=== PATIENT | male | born 1955 | race Caucasian/White ===

== ENCOUNTER 2016-07-24 10:19 | Day surgery (SDC) | payer MEDICARE, OTHER ==
[2016-07-24] VITALS (13 sets, daily range): BP systolic 121–149; BP diastolic 57–96; PULSE 68–87; RESP 12–18; TEMP 96.8–98.6; O2SAT 93–99; Ht 188 cm; Wt 145.9 kg
[~2016-07-24] VITALS: Ht 188 cm; Wt 145.9 kg
[~2016-07-24 10:19] MED LIST: ASPI-557 PO; CLOB15CR4 TOP; LEVOFLOXACIN 500 mg IVPB 500 MG in D5W 100 ML IV ONE; LIDOCAINE 1% (10mg/ml) 2ml SDV INJ ONE; LISI-625 PO; LR 1,000 ML IV SCH; METO50TA5 PO; NITR0.4T39 SL; RIVA15TA PO; SENN-125 PO; SIMV20TA6 PO
--- OUTSIDE RECORDS SUMMARY | 2016-07-24 10:23 | XMS REPORT | Summary of Care ---
Author Author Darrius Elkins M.D. Organization Unknown Address [address] [place], [place] [address] Phone Unavailable Care Team Providers Care Supervisor Cold Rolling Name Role Phone Kirsty Elkins M.D. Unavailable Unavailable Darrius Elkins PP Unavailable Unavailable Unavailable Functional Status Functional Status Health Issues* Name Dates Details Functional status health issues are not documented Status: Cognitive Status Health Issues* Name Dates Details Cognitive status health issues are not documented Status: Problems Name Dates Details Cath RV False Aneurysm Status: Active Nausea (787.02, R11.0) Status: Active Tobacco use disorder (305.1, Z72.0) Status: Active Urinary tract infection (599.0, N39.0) Status: Active Pleural effusion (511.9, J90) Status: Active Psoriasis (696.1, L40.9) Status: Active Atopic dermatitis (691.8, L20.9) Status: Active Contact dermatitis (692.9, L25.9) Status: Active Myopia (367.1, H52.10) Status: Active Presbyopia (367.4, H52.4) Status: Active Intertrigo (695.89, L30.4) Status: Active Wounds, multiple open, lower extremity (894.0, S81.809A) Status: Active Elevated prostate specific antigen (PSA) (790.93, R97.2) Status: Active Rash (782.1, R21) Status: Active Blood in semen (608.82, R36.1) Status: Active History of tobacco use (V15.82, Z87.891) Status: Active Vertigo (780.4, R42) Status: Active Sebaceous hyperplasia (706.8, L73.8) Status: Active Hematuria (599.70, R31.9) Status: Active Glaucoma suspect (365.00, H40.009) Status: Active 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, 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 Low back pain (724.2, M54.5) Status: Active Lumbar nerve root compression (724.4, M54.16) Status: Active Acute bronchitis (466.0, J20.9) Status: Active Encounter for general health examination (V70.0, Z00.00) Status: Active Obesity (278.00, E66.9) Status: Active Constipation (564.00, K59.00) Status: Active Encounter for annual physical exam (V70.0, Z00.00) Status: Active High risk medication use (V58.69, Z79.899) Status: Active Hypertension (401.9, I10) Status: Active Cellulitis of foot (682.7, L03.119) Status: Active Hyperlipidemia (272.4, E78.5) Status: Active Type 2 diabetes mellitus, uncontrolled (250.02, E11.65) Status: Active Past myocardial infarction (412, I25.2) Status: Active Medications Name Dates Details Aspirin 81 MG Oral Tablet Take 1 tablet daily Darrius Elkins M.D.* Started 13-Jul-2011 ActiveNitrostat 0.4 MG Sublingual Tablet Sublingual DISSOLVE 1 TAB UNDER TONGUE NEEDED FOR CHEST PAIN EVERY 5 MINUTES F OR UP TO 3 DOSES. IF NO RELIEF CALL * Quantity: 30 Refills: 1 Darrius Elkins M.D.* Started 13-Jul-2011 ActiveSimvastatin 20 MG Oral Tablet TAKE 1 TABLET DAILY AT BEDTIME * Quantity: 90 Refills: 3 Darrius Elkins M.D.* Started 13-Jul-2011 ActiveMetoprolol Tartrate 50 MG Oral Tablet Take 1 tablet twice a day * Quantity: 180 Refills: 2 Darrius Elkins M.D.* Started 13-Jul-2011 ActiveMiraLax Oral Powder MIX 17 GM IN 8 OUNCES OF LIQUID AND DRINK 1 TO 2 TIMES DAILY FOR CONSTIPATION. * Quantity: 2 Refills: 6 Darrius Elkins M.D.* Started 13-Jul-2011 ActiveWarfarin Sodium 3 MG Oral Tablet TAKE ONE TABLET BY MOUTH EVERY DAY DIRECTED * Quantity: 90 Refills: 3 Darrius Elkins M.D.* Started ActiveHalobetasol Propionate 0.05 % External Cream APPLY TO AFFECTED AREAS BEHIND EARS AND ON HANDS TWICE A DAY NEEDED * Quantity: 50 Refills: 2 Darrius Elkins M.D.* Started 14-Jul-2012 ActiveDocQLace 100 MG Oral Capsule ONE CAPSULE BY MOUTH TWO TIMES DAILY * Quantity: 60 Refills: 11 Darrius Elkins M.D.* Started 28-Jul-2012 ActiveLisinopril 5 MG Oral Tablet Take 1 tablet daily * Quantity: 90 Refills: 1 Darrius Elkins M.D.* Started 11-Dec-2012 ActivePredniSONE 10 MG Oral Tablet 30mg qd x 3 days. 20mg qd x 3 days. 10mg qd x 3 days * Quantity: 18 Refills: 0 Darrius Elkins M.D.* Started 10-Apr-2013 ActiveWarfarin Sodium 5 MG Oral Tablet TAKE 1 TABLET DAILY DIRECTED. * Quantity: 90 Refills: 3 Darrius Elkins M.D.* Started 31-Jul-2013 ActiveMeloxicam 7.5 MG Oral Tablet 1QD - TAKE ONE TABLET BY MOUTH EVERY DAY * Quantity: 20 Refills: 0 Darrius Elkins M.D.* Started 12-Oct-2013 ActiveLinzess 145 MCG Oral Capsule TAKE 1 CAPSULE Every morning * Refills: 0 Darrius Elkins M.D.* Started 24-Dec-2013 Active Allergies and Adverse Reactions Name Dates Details No Known Drug Allergies Status: Active Past Medical History Name Dates Details History of acute bronchitis (V12.69, Z87.09) Status: Resolved Procedures Procedure Dates Details HEMOGLOBIN A1C 3507 Ordered:07-May-2014 Immunization Name Dates Details Influenza Administered on:01-Jan-2013 Fluzone Quadrivalent 0.5 ML Intramuscular Suspension Lot #: [id number] Administered on:17-Dec-2013 Family History Mother* Name Dates Details Family history of Osteoporosis (V17.81) Status: Active Father* Name Dates Details Family history of Heart Disease (V17.49) Status: Active Sister* Name Dates Details Family history of Thyroid Disorder (V18.19) Status: Active Brother* Name Dates Details Family history of Thyroid Disorder (V18.19) Status: Active Social History Name Dates Details Tobacco use disorder (305.1, Z72.0) History of tobacco use (V15.82, Z87.891) Smoking Status* Unknown if ever smoked Vital Signs Date Test Result Details No Known Vitals to report Results Date Description Value Details 07-May-2014 10:33 PROTIME PANEL 7000 Comments: Fastin hours PROTIME 30.5 secs (Above high threshold) Range: 12.0-14.9 INR 3.00 (Better) 10:35 LIPID PROFILE 1184 Comments: Fastin hours CHOLESTEROL 154 mg/dL (Better) Range: <200 TRIGLYCERIDES 220 mg/dL (Above high threshold) Range: 30-200 HDL Cholesterol 29 mg/dL (Below low threshold) Range: >39 NON HDL CHOLESTEROL 125 (Better) CARDIAC RSK FACTOR 5.3 units (Above high threshold) Range: 4.4-5.0 LDL - CALCULATED 81 mg/dL (Better) Range: 0-130 10:47 HEMOGLOBIN A1C 3507 Comments: Fastin hours Hemoglobin A1C 6.5 % (Better) ESTIMATED AVG. GLUCOSE 140 (Better) 14-May-2014 14:14 Quant Microalbumin 1106 MICROALBUMIN, URINE 4.3 mg/L (Better) Range: <20.1 05-Jun-2014 10:36 PROTIME PANEL 7000 PROTIME 14.9 secs (Better) Range: 12.0-14.9 INR 1.18 (Better) Plan of Care Planned Observations* Name Dates Details Planned Goals not documented Goal Planned Encounters* Appointment; Provider: Odin Florez On 19-Mar-2012 18:45 Instructions * Instructions not documented Encounters Appointment; Darrius Elkins Encounter Diagnosis: Problem not documented On 15-Apr-2014 10:15 Appointment; Darrius Elkins Encounter Diagnosis: Problem not documented On 24-Dec-2013 14:00 Appointment; Harvey Joyner Encounter Diagnosis: Problem not documented On 17-Dec-2013 15:50 Appointment; Darrius Elkins Encounter Diagnosis: Problem not documented On 23-Nov-2013 10:30 Appointment; Darrius Elkins Encounter Diagnosis: Problem not documented On 11:00 Appointment; Pipo Aponte Encounter Diagnosis: Problem not documented On 05-Jun-2013 09:45 Appointment; Clarke Quintero Encounter Diagnosis: Problem not documented On 08-May-2013 10:00 Appointment; Clarke Quintero Encounter Diagnosis: Problem not documented On 05-May-2013 12:15 Appointment; Darrius Elkins Encounter Diagnosis: Problem not documented On 28-Apr-2013 13:00 Appointment; Darrius Elkins Encounter Diagnosis: Problem not documented On 10-Apr-2013 10:30 Appointment; Darrius Elkins Encounter Diagnosis: Problem not documented On 11-Dec-2012 10:45 Appointment; Billy Altamirano Encounter Diagnosis: Problem not documented On 14-Jul-2012 14:00 Appointment; Clarke Watts Encounter Diagnosis: Problem not documented On 10-Jun-2012 16:00 Appointment; Clarke Quintero Encounter Diagnosis: Problem not documented On 10-Jun-2012 14:00
--- OUTSIDE RECORDS SUMMARY | 2016-07-24 10:23 | XMS REPORT | Summary of Care ---
Author Author Lady Cortes Organization Unknown Address [address] [place], [place] [address] Phone Unavailable Care Team Providers Care Solutions Manager Name Role Phone BlayneKylee murrieta DPM Unavailable Unavailable Lady Cortes Unavailable Unavailable Kirsty Elkins M.D. Unavailable Unavailable Darrius Elkins [...] Active Atopic dermatitis (691.8, L20.9) Status: Active Presbyopia (367.4, H52.4) Status: Active Intertrigo (695.89, L30.4) Status: Active Wounds, multiple open, lower extremity (894.0, S81.809A) Status: Active Elevated prostate specific antigen (PSA) (790.93, R97.2) Status: Active Blood in semen (608.82, R36.1) Status: Active History of tobacco use (V15.82, Z87.891) Status: Active Vertigo (780.4, R42) Status: Active Sebaceous hyperplasia (706.8, L73.8) Status: Active Hematuria (599.70, R31.9) Status: Active Low back pain (724.2, M54.5) Status: Active Lumbar nerve root compression (724.4, M54.16) Status: Active Encounter for general health examination (V70.0, Z00.00) Status: Active Constipation (564.00, K59.00) Status: Active Encounter for annual physical exam (V70.0, Z00.00) Status: Active Cellulitis of foot (682.7, L03.119) Status: Active Obesity (278.00, E66.9) Status: Active Contact dermatitis (692.9, L25.9) Status: Active Cellulitis of foot, right (682.7, L03.115) Status: Active Acquired hallux rigidus, right (735.2, M20.21) Status: Active Diabetic neuropathy (250.60, E11.40) Status: Active Peripheral vascular disease (443.9, I73.9) Status: Active Ulcer of foot (707.15, L97.509) Status: Active Chronic ulcer of right foot (707.15, 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: Active Bacterial skin infection (686.9, L08.9) Status: Active Acquired hallux rigidus, right (735.2, M20.21) Status: Active Limb pain (729.5, M79.609) Status: Active Difficulty in walking (719.7, R26.2) Status: Active 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, 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: Active Pre-op examination (V72.84, Z01.818) Status: Active Foot pain (729.5, M79.673) Status: Active Encounter for examination following surgery (V67.00, Z09) Status: Active Past myocardial infarction (412, I25.2) Status: Active 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, 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 Glaucoma suspect (365.00, H40.009) Status: Active Myopia of both eyes (367.1, H52.13) Status: Active Hypertension (401.9, I10) Status: Active Anticoagulant long-term use (V58.61, Z79.01) Status: Active High risk medication use (V58.69, Z79.899) Status: Active Former tobacco use (V15.82, Z87.891) Status: Active Rash (782.1, R21) Status: Active CAD (coronary artery disease) (414.00, I25.10) Status: Active Hyperlipidemia (272.4, E78.5) Status: Active Tinea corporis (110.5, B35.4) Status: Active Nummular eczema (692.9, L30.0) Status: Active Plaque psoriasis (696.1, L40.0) Status: Active Medications Name Dates Details Aspirin 81 MG TABS Take 1 tablet daily Darrius Elkins M.D.* [...] twice a day * Quantity: 180 Refills: 1 Darrius Elkins M.D.* Started 13-Jul-2011 ActiveMiraLax Oral Powder MIX 17 GM IN 8 OUNCES OF LIQUID AND DRINK 1 TO 2 TIMES DAILY FOR CONSTIPATION. * Quantity: 2 Refills: 6 Darrius Elkins M.D.* Started 13-Jul-2011 ActiveWarfarin Sodium 3 MG Oral Tablet TAKE 1 TABLET Daily as directed * Quantity: 90 Refills: 0 Darrius Elkins M.D.* Started ActiveHalobetasol Propionate 0.05 % External Cream APPLY TO AFFECTED AREAS BEHIND EARS AND ON HANDS TWICE A DAY NEEDED * Quantity: 50 Refills: 2 Darrius Elkins M.D.* Started 14-Jul-2012 ActiveLisinopril 5 MG Oral Tablet Take 1 tablet daily * Quantity: 90 Refills: 3 Darrius Elkins M.D.* Started 11-Dec-2012 ActiveWarfarin Sodium 5 MG Oral Tablet TAKE 1 TABLET Daily as directed * Quantity: 90 Refills: 3 Darrius Elkins M.D.* Started 31-Jul-2013 ActiveHalobetasol Propionate 0.05 % External Cream APPLY TO AFFECTED AREAS SPARINGLY TWICE DAILY * Quantity: 1 Refills: 2 Lady Sterling* Started 10-Jun-2014 Hjeaxh70 GM Tube Sulfamethoxazole-TMP DS 800-160 MG TABS Take 1 tablet twice daily * Quantity: 28 Refills: 0 Kylee Waite DPM* Started 04-Aug-2014 ActiveTerbinafine HCl - 250 MG Oral Tablet TAKE 1 TABLET DAILY. * Quantity: 7 Refills: 0 Asher Lady P.A.* Started Active Allergies and Adverse Reactions Name Dates Details No Known Drug Allergies Status: Active Past Medical History Name Dates Details History of acute bronchitis (V12.69, Z87.09) Status: Resolved History of Cellulitis of foot (682.7, L03.119) Status: Resolved Procedures Procedure Dates Details PROTIME PANEL 7000 Ordered: Immunization Name Dates Details Influenza Administered on:01-Jan-2013 Fluzone Quadrivalent 0.5 ML Intramuscular Suspension Lot #: [id number] Administered on:17-Dec-2013 Fluzone Quadrivalent 0.5 ML Intramuscular Suspension Lot #: [id number] Administered on:09-Dec-2014 Family History Mother* Name Dates Details Family [...] of tobacco use (V15.82, Z87.891) Smoking Status* Former smoker Vital Signs Date Test Result Details 08:55 BP Systolic 148 mm[Hg] Status: BP Diastolic 88 mm[Hg] Status: Weight 331 lb Status: Body Mass Index Calculated 42.5 kg/m2 Status: Body Surface Area Calculated 2.69 m2 Status: Results Date Description Value Details 10:22 PROTIME PANEL 7000 Comments: Fastin hours PROTIME 28.1 secs (Above high threshold) Range: 12.0-14.9 INR 2.62 (Better) 11:00 HEMOGLOBIN A1C 3507 Comments: Fastin hours Hemoglobin A1C 6.2 % (Better) ESTIMATED AVG. GLUCOSE 131 (Better) Plan of Care Planned Observations* Name Dates Details Planned Goals not documented Goal Planned Encounters* Appointment; Provider: Billy Altamirano On 08:45 * Appointment; Provider: Kylee Waite On 13:30 * Appointment; Provider: Odin Florez On 19-Mar-2012 18:45 Instructions * Instructions not documented Encounters Appointment; Lady Sterling Encounter Diagnosis: Problem not documented On 08:30 Appointment; Darrius Elkins Encounter Diagnosis: Problem not documented On 08:45 Appointment; Pipo Aponte Encounter Diagnosis: Problem not documented On 22-Feb-2015 10:15 Appointment; Harvey Joyner Encounter Diagnosis: Problem not documented On 09-Dec-2014 16:30 Appointment; Kylee Waite Encounter Diagnosis: Problem not documented On 10:15 Appointment; Kylee Waite Encounter Diagnosis: Problem not documented On 09:00 Appointment; Kylee Waite Encounter Diagnosis: Problem not documented On 10:00 Appointment; Darrius Elkins Encounter Diagnosis: Problem not documented On 09:00 Appointment; Kylee Waite Encounter Diagnosis: Problem not documented On 04-Aug-2014 09:15 Appointment; Kylee Waite Encounter Diagnosis: Problem not documented On 07-Jul-2014 13:30 Appointment; Darrius Elkins Encounter Diagnosis: Problem not documented On 10-Jun-2014 10:15 Appointment; Darrius Elkins Encounter Diagnosis: Problem not documented On 15-Apr-2014 10:15 Appointment; Darrius Elkins Encounter Diagnosis: Problem not documented On 24-Dec-2013 14:00 Appointment; Harvey Joyner Encounter Diagnosis: Problem not documented On 17-Dec-2013 15:50 Appointment; Darrius Elkins Encounter Diagnosis: Problem not documented On 23-Nov-2013 10:30 Appointment; Darrius Elkins Encounter Diagnosis: Problem not documented On 11:00
--- OUTSIDE RECORDS SUMMARY | 2016-07-24 10:23 | XMS REPORT ---
Author Peyman Chaudhry Organization [employer] Address Unknown Phone Unavailable Care Team Providers Care Submarine Element Coordinator Name Role Phone Peyman King CP Unavailable Allergies, Adverse Reactions, Alerts Substance Reaction Event Type N.K.D.A. Info Not Available Non Drug Allergy Problems Problem Type Condition ICD-9 Code Onset Dates Condition Status Problem RUQ pain 789.01 Active Problem Fatty liver 571.8 Active Problem Chronic constipation 564.00 Active Assessment Fatty liver 571.8 Active Assessment Chronic constipation 564.00 Active Assessment RUQ pain 789.01 Active Medications Medication Code System Code Instructions Start Date End Date Status Dosage Coumadin [facility] [address]-64 8mg Orally Once a day 1 tablet Aspirin [facility] 58746-[address]94 81 MG Orally Once a day 1 tablet Lisinopril [facility] [address]-31 5 MG Orally Once a day 1 tablet Metoprolol Tartrate [facility] [address]-26 50 MG Orally daily 2 tablet MiraLax [facility] [address]-55 not defined Procedures Procedure Coding System Code Date Office Visit, New Pt., Level 4 CPT-4 48177 July 20, 2014 Vital Signs Date/Time: July 20, 2014 Blood Pressure Systolic 132 mm Hg Weight 332 lbs Height 74 in BMI 42.62 Index Respiratory Rate 18 /min Cardiac Monitoring Heart Rate 80 /min Blood Pressure Diastolic 82 mm Hg Results No Known Results Summary Purpose [employer] Submission
--- OUTSIDE RECORDS SUMMARY | 2016-07-24 10:24 | XMS REPORT | Summary of Care ---
Author Author Kylee Waite DPM Organization Unknown Address [address] [place], [place] [id number] Phone Unavailable Care Team Providers Care Business Database Analyst Name Role Phone Kylee Waite DPM Unavailable Unavailable Kirsty Elkins M.D. Unavailable Unavailable [...] Active Atopic dermatitis (691.8, L20.9) Status: Active Myopia (367.1, H52.10) Status: Active [...] risk medication use (V58.69, Z79.899) Status: Active Hyperlipidemia (272.4, E78.5) Status: Active Hypertension (401.9, I10) Status: Active [...] Bacterial skin infection (686.9, L08.9) Status: Active Past myocardial infarction (412, I25.2) Status: Active Type 2 diabetes mellitus, uncontrolled (250.02, E11.65) Status: Active Acquired hallux rigidus, right (735.2, M20.21) Status: Active Limb pain (729.5, M79.609) Status: Active Difficulty in walking (719.7, R26.2) Status: Active 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, 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: Active Pre-op examination (V72.84, Z01.818) Status: Active Foot pain (729.5, M79.673) Status: Active Encounter for examination following surgery (V67.00, Z09) Status: Active Medications Name Dates Details Aspirin [...] Refills: 1 Darrius Elkins M.D.* Started 11-Dec-2012 ActiveWarfarin Sodium 5 MG Oral Tablet TAKE 1 TABLET DAILY DIRECTED. * Quantity: 90 Refills: 3 Darrius Elkins M.D.* Started 31-Jul-2013 ActiveHalobetasol Propionate 0.05 % External Cream APPLY TO AFFECTED AREAS SPARINGLY TWICE DAILY * Quantity: 30 Refills: 0 Darrius Elkins M.D.* Started 10-Jun-2014 ActiveSulfamethoxazole-TMP DS 800-160 MG Oral Tablet Take 1 tablet twice daily * Quantity: 28 Refills: 0 Kylee Waite DPM* Started 04-Aug-2014 Active Allergies and Adverse Reactions Name Dates Details No Known Drug Allergies Status: Active Past Medical History Name Dates Details History of acute bronchitis (V12.69, Z87.09) Status: Resolved History of Cellulitis of foot (682.7, L03.119) Status: Resolved Procedures Procedure Dates Details HEMOGLOBIN A1C 3507 Ordered:29-Jul-2014 Immunization Name Dates Details Influenza Administered on:01-Jan-2013 Fluzone Quadrivalent 0.5 ML Intramuscular Suspension Lot #: [id number] Administered on:17-Dec-2013 Family History Mother* Name Dates [...] smoked Vital Signs Date Test Result Details 09:17 BP Systolic 130 mm[Hg] Status: BP Diastolic 82 mm[Hg] Status: Heart Rate 71 /min Status: Weight 339 lb Status: Body Mass Index Calculated 43.53 kg/m2 Status: Body Surface Area Calculated 2.72 m2 Status: Results Date Description Value Details 09:42 XRay CHEST-PA & LAT Comments: Exam Date: 08/30/2014 09:27Dictation Date: 08/30/2014 09:42 X CHEST PA & LAT (Better) 09:55 ECG/ EKG Preop Electro CardioGram (Better) 10:04 Urinalysis, Reflex to Microscopic or Culture PRN 8005 pH 5.5 (Better) Range: 5.0-7.5 SP GRAVITY 1.010 (Better) Range: 1.010-1.030 APPEARANCE CLEAR (Better) Range: Clear COLOR YELLOW (Better) Range: Straw-Yellow PROTEIN NEGATIVE mg/dL (Better) Range: Negative-Trace GLUCOSE NEGATIVE mg/dL (Better) Range: Negative KETONE NEGATIVE mg/dL (Better) Range: Negative BILIRUB NEGATIVE (Better) Range: Negative BLOOD NEGATIVE (Better) Range: Negative UROBIL 0.2 EU/dL (Better) Range: 0.2-1.0 NITRITE NEGATIVE (Better) Range: Negative LEUK NEGATIVE (Better) Range: Negative 10:11 PROTIME PANEL 7000 PROTIME 23.1 secs (Above high threshold) Range: 12.0-14.9 INR 2.09 (Better) 10:15 CBC w/ Auto Diff 7150 Comments: DOS 09-06-14 Dr. Waite @ [facility]. WBC 6.3 K/uL (Better) Range: 4.5-11.0 RBC 5.20 mil/uL (Better) Range: 4.20-5.40 HGB 15.6 g/dL (Better) Range: 14.0-18.0 HCT 46.2 % (Better) Range: 42.0-53.0 MCV 88.9 fL (Better) Range: 80.0-99.0 MCH 30.1 pg (Better) Range: 27.3-32.5 MCHC 33.8 % (Better) Range: 32.0-36.0 RDW 13.8 % (Better) Range: 11.6-14.8 PLATELETS 169 K/uL (Better) Range: 150-400 MPV 8.7 fL (Better) Range: 6.0-11.0 %NEUTRO 51.0 % (Better) Range: 37.0-80.0 %LYMPHS 32.2 % (Better) Range: 13.0-50.0 %MONO 4.9 % (Better) Range: 0.0-12.0 %EOS 7.4 % (Above high threshold) Range: 0.0-7.0 %BASO 1.0 % (Better) Range: 0.0-2.5 %ALEJANDRA 3.5 % (Better) Range: 0.0-5.0 NEUTRO 3.2 K/uL (Better) Range: 2.0-6.9 LYMPHS 2.0 K/uL (Better) Range: 0.6-3.4 MONOS 0.3 K/uL (Better) Range: 0.0-0.9 EOS 0.5 K/uL (Better) Range: 0.0-0.7 BASO 0.1 K/uL (Better) Range: 0.0-0.2 12:13 Comprehensive Metabolic Panel 1212 SODIUM 135 mmol/L (Better) Range: 133-144 POTASSIUM 4.0 mmol/L (Better) Range: 3.5-5.1 CHLORIDE 98 mmol/L (Better) Range: 98-110 CARBON DIOXIDE 26.9 mmol/L (Better) Range: 23.0-33.0 ANION GAP 10 mmol/L (Better) Range: 6-16 BUN 14 mg/dL (Better) Range: 7-18 CREATININE, SERUM 0.98 mg/dL (Better) Range: 0.55-1.02 Comments: Please note new reference ranges effective 2014.----- BUN:CREATININE RATIO 14 (Better) EST GFR, >60 ml/min (Better) Range: >60 EST GFR, NON-AFR TOGOLESE >60 ml/min (Better) Range: >60 Comments: EST GFR is reported in ml/min per 1.73 m2 of body surface area. For -Italian, please multiple result by 1.2.----- GLUCOSE 142 mg/dL (Above high threshold) Range: 70-100 ALK PHOSPHATASE 76 U/L (Better) Range: 46-116 TOTAL BILIRUBIN 0.30 mg/dL (Better) Range: 0.20-1.00 AST 30 U/L (Better) Range: 8-35 ALT 41 U/L (Better) Range: 16-63 Comments: Please note new reference ranges. Effective 05/20/2014.----- ALBUMIN 3.4 g/dL (Better) Range: 3.4-5.0 TOTAL PROTEIN 7.5 g/dL (Better) Range: 6.4-8.2 A/G RATIO 0.8 units (Below low threshold) Range: 1.0-1.8 CALCIUM 8.4 mg/dL (Below low threshold) Range: 8.5-10.1 10:34 XRay FOOT-Right Comments: Exam Date: 09/14/2014 09: 58Dictation Date: 09/14/2014 10:34 X FOOT COMP (MIN 3V) RT (Better) Plan of Care Planned Observations* Name Dates Details Planned Goals not documented Goal Planned Encounters* Appointment; Provider: Kylee Waite On 10:15 * Appointment; Provider: Kylee Waite On 13:30 * Appointment; Provider: Odin Florez On 19-Mar-2012 18:45 Instructions * Instructions not documented Encounters Appointment; Kylee Waite Encounter Diagnosis: Problem not [...]
--- OUTSIDE RECORDS SUMMARY | 2016-07-24 10:24 | XMS REPORT | Referral Summary ---
Author Author [facility] Organization [facility] Address Unknown Phone Unavailable Care Team Providers Care Shank Turner Name Role Phone Kirsty Elkins Primary Care Physician [phone] Encounter Date(s): 02/03/16 - 02/03/16 [facility] [address] [place], [place] [address] Discharge Diagnosis: Nausea and vomiting Discharge Diagnosis: Acute gastritis Discharge Diagnosis: Abdominal pain in male Discharge Disposition: 01-Home or Self Care Attending Physician: Yemi Tate MD Admitting Physician: Yemi Tate MD Vital Signs Most recent to 1 oldest [Reference Range]: Temperature Temporal 36 degC Artery [36.3-37.8 *LOW* degC] (02/03/16 9:19 AM) Peripheral Pulse 114 bpm Rate [60-100 bpm] *HI* (02/03/16 9:42 AM) Heart Rate Monitored 93 bpm [60-100 bpm] (02/03/16 10:25 AM) Respiratory Rate 33 br/min [14-20 br/min] *HI* (02/03/16 10:25 AM) Blood Pressure 136/71 mmHg [90-140/60-90 mmHg] (02/03/16 10:25 AM) Mean Arterial 92 mmHg Pressure, Cuff (02/03/16 10:25 AM) SpO2 95 % (02/03/16 10:25 AM) Problem List Condition Effective Dates Status Health Status Informant H/O heart bypass Active patient surgery(Confirmed) History of high Active patient blood pressure(Confirmed) Allergies, Adverse Reactions, Alerts No Known Medication Allergies Medications Colace 100 mg oral capsule 100 mg 1 caps, Oral, BID, as needed for constipation, with plenty of water SUP/ david Wright MD., # 20 caps, 0 Refill(s) Start Date: 02/02/16 Status: Ordered Levsin SL 0.125 mg sublingual tablet 0.125 mg 1 tabs, SubLingual, q4hr, # 15 tabs, 0 Refill(s) Start Date: 02/03/16 Status: Ordered MiraLax oral powder for reconstitution 17 g, Oral, Daily, dissolve in water before taking SHAISTA/david Wright MD., # 255 g, 0 Refill(s) Start Date: 02/02/16 Stop Date: 02/06/16 Status: Ordered Zofran 4 mg oral tablet 4 mg 1 tabs, Oral, q4hr, Nausea or Vomiting | as needed for nausea/vomiting, SHAISTA /david Wright MD., # 10 tabs, 0 Refill(s) Start Date: 02/02/16 Stop Date: 02/06/16 Status: Ordered Zofran ODT 4 mg oral tablet, disintegrating 4 mg 1 tabs, Oral, q4hr, Nausea or Vomiting | as needed for nausea/vomiting, # 10 tabs, 0 Refill(s) Start Date: 02/03/16 Status: Ordered Results Hematology Most recent to 1 oldest [Reference Range]: WBC [4.8-10.8 6.3 10*3/uL 10*3/uL] (02/03/16 9:57 AM) RBC [4.60-6.20] 5.07 (02/03/16 9:57 AM) Hgb [14.0-18.0 15.4 gm/dL gm/dL] (02/03/16 9:57 AM) Hct [42.0-52.0 %] 46.2 % (02/03/16 9:57 AM) MCV [82.0-99.0 fL] 91.1 fL (02/03/16 9:57 AM) MCH [27.0-32.0 pg] 30.4 pg (02/03/16 9:57 AM) MCHC [32.0-36.0 33.3 gm/dL gm/dL] (02/03/16 9:57 AM) RDW [11.5-14.5 %] 13.9 % (02/03/16 9:57 AM) Platelet [150-400 135 10*3/uL 10*3/uL] *LOW* (02/03/16 9:57 AM) MPV [9.4-12.3 fL] 12.1 fL (02/03/16 9:57 AM) Immature 0.2 % Granulocytes (02/03/16 9:57 AM) [0.0-1.0 %] Neutrophils [51-75 80 % %] *HI* (02/03/16 9:57 AM) Lymphocytes [20-46 9 % %] *LOW* (02/03/16 9:57 AM) Monocytes [4-11 %] 11 % (02/03/16 9:57 AM) Eosinophils [0-4 %] 0 % (02/03/16 9:57 AM) Basophils [0-2 %] 0 % (02/03/16 9:57 AM) Neutro Absolute 4.98 10*3 [1.90-7.00 10*3] (02/03/16 9:57 AM) Lymph Absolute 0.56 10*3 [0.80-3.30 10*3] *LOW* (02/03/16 9:57 AM) [place] Absolute 0.70 10*3 [0.30-1.00 10*3] (02/03/16 9:57 AM) Eos Absolute 0.00 10*3 [0.00-0.50 10*3] (02/03/16 9:57 AM) Baso Absolute 0.01 10*3 [0.00-0.20 10*3] (02/03/16 9:57 AM) Chemistry Most recent to 1 oldest [Reference Range]: Sodium Lvl [136-144 133 mEq/L mEq/L] *LOW* (02/03/16 9:57 AM) Potassium Lvl 4.2 mEq/L [3.6-5.1 mEq/L] (02/03/16 9:57 AM) Chloride [99-109 95 mEq/L mEq/L] *LOW* (02/03/16 9:57 AM) CO2 [22-32 mEq/L] 28 mEq/L (02/03/16 9:57 AM) AGAP [3-20] 10 (02/03/16 9:57 AM) BUN [4-20 mg/dL] 11 mg/dL (02/03/16 9:57 AM) Glucose Lvl [70-100 131 mg/dL mg/dL] *HI* (02/03/16 9:57 AM) Creatinine Lvl 1.15 mg/dL [0.64-1.27 mg/dL] (02/03/16 9:57 AM) eGFR [>60] >60 1 (02/03/16 9:57 AM) Calcium Lvl 8.7 mg/dL [8.6-10.0 mg/dL] (02/03/16 9:57 AM) Albumin Lvl [3.5-4.8 3.4 gm/dL gm/dL] *LOW* (02/03/16 9:57 AM) Total Protein 7.3 gm/dL [6.1-7.9 gm/dL] (02/03/16 9:57 AM) Globulin [1.9-4.3 3.9 gm/dL gm/dL] (02/03/16 9:57 AM) ALT [17-63 U/L] 30 U/L (02/03/16 9:57 AM) AST [15-41 U/L] 29 U/L (02/03/16 9:57 AM) Alk Phos [26-104 64 U/L U/L] (02/03/16 9:57 AM) Bili Total [0.2-1.2 1.1 mg/dL 2 mg/dL] (02/03/16 9:57 AM) Troponin [<0.06 <0.05 ng/mL ng/mL] (02/03/16 9:57 AM) Lipase Lvl [8-48 25 U/L U/L] (02/03/16 9:57 AM) 1Result Comment: Multiply eGFR results by 1.21 for race. 2Result Comment: Naproxen, specifically the metabolite O-desmethylnaproxen, may cause spurious elevation in Total Bilirubin levels. Urinalysis Most recent to 1 oldest [Reference Range]: UA Color Yellow (02/03/16 9:56 AM) UA Appear Clear (02/03/16 9:56 AM) UA pH [5.0-8.0] 5.0 (02/03/16 9:56 AM) UA Leuk Est Negative [Negative] (02/03/16 9:56 AM) UA Nitrite Negative [Negative] (02/03/16 9:56 AM) UA Protein Negative [Negative] (02/03/16 9:56 AM) UA Glucose Negative [Negative] (02/03/16 9:56 AM) UA Ketones Pos 1+ [Negative] *ABN* (02/03/16 9:56 AM) UA Urobilinogen Negative [<1.0] (02/03/16 9:56 AM) UA Bili [Negative] Negative (02/03/16 9:56 AM) UA Blood [Negative] Negative (02/03/16 9:56 AM) UA Spec Grav 1.030 [1.003-1.030] (02/03/16 9:56 AM) Type Clean Catch (02/03/16 9:56 AM) Immunizations No data available for this section Procedures No data available for this section Social History Social History Type Response Smoking Status Current some day smoker Assessment and Plan No data available for this section"
--- OUTSIDE RECORDS SUMMARY | 2016-07-24 10:24 | XMS REPORT | Summary of Care ---
Author Author Kylee Waite DPM Organization Unknown Address [address] [place], [place] [id number] Phone Unavailable Care Team Providers Care Government Contracts Manager Name Role Phone Kylee Waite DPM Unavailable [...] Quadrivalent 0.5 ML Intramuscular Suspension Lot #: [id number] Administered on:17-Dec-2013 Family History Mother* Name Dates [...] Auto Diff 7150 Comments: DOS 09-06-14 Dr. aWite @ [facility]. WBC 6.3 K/uL (Better) Range: 4.5-11.0 RBC [...] ml/min (Better) Range: >60 EST GFR, NON-AFR KYRGYZ >60 ml/min (Better) Range: >60 Comments: EST GFR is reported in ml/min per 1.73 m2 of body surface area. For -Nigerian, please multiple result by 1.2.----- GLUCOSE 142 [...] Planned Encounters* Appointment; Provider: Kylee Waite On 09:00 * Appointment; Provider: Kylee Waite On 13:30 * Appointment; Provider: Odin Gautam On 19-Mar-2012 18:45 Instructions * Instructions not [...]
--- OUTSIDE RECORDS SUMMARY | 2016-07-24 10:24 | XMS REPORT | Summary of Care ---
Author Author Darrius Elkins M.D. Organization Unknown Address [address] [place], [place] [id number] Phone Unavailable Care Team Providers Care Covered Buckle Assembler Name Role Phone Kirsty Elkins M.D. Unavailable [...] R11.0) Status: Active Tobacco use disorder (305.1, Z02.0) Status: Active Urinary tract infection (599.0, N39.0) [...] nerve root compression (724.4, M54.16) Status: Active High risk medication use (V58.69, Z79.899) Status: Active Acute bronchitis (466.0, J20.9) Status: Active Past myocardial infarction (412, I25.2) Status: Active Hyperlipidemia (272.4, E78.5) Status: Active Encounter for general health examination (V70.0, Z00.00) Status: Active Obesity (278.00, E66.9) Status: Active Constipation (564.00, K59.00) Status: Active Hypertension (401.9, I10) Status: Active Encounter for annual physical exam (V70.0, Z00.00) Status: Active Medications Name Dates Details Aspirin [...] 13-Jul-2011 ActiveMetoprolol Tartrate 50 MG Oral Tablet TAKE ONE TABLET BY MOUTH TWO TIMES A DAY. * Quantity: 180 Refills: 1 Darrius Elkins [...] Started 28-Jul-2012 ActiveLisinopril 5 MG Oral Tablet I po qd * Quantity: 90 Refills: 1 Darrius Elkins [...] Z87.09) Status: Resolved Procedures Procedure Dates Details Procedures not documented Immunization Name Dates Details Influenza Administered on:01-Jan-2013 Fluzone Quadrivalent 0.5 ML Intramuscular Suspension Lot #: [id number] Administered on:17-Dec-2013 Family History Mother* Name Dates Details Family history of Osteoporosis (V17.81) Status: Active Father* Name Dates Details Family history of Heart Disease (V17.49) Status: Active Sister* Name Dates Details Family history of Thyroid Disorder (V18.19) Status: Active Brother* Name Dates Details Family history of Thyroid Disorder (V18.19) Status: Active Social History Name Dates Details Tobacco use disorder (305.1, Z02.0) History of tobacco use (V15.82, Z87.891) Smoking Status* Unknown if ever smoked Vital Signs Date Test Result Details No Known Vitals to report Results Date Description Value Details 19-Feb-2014 09:24 CBC w/ Auto Diff 7150 Comments: ORDER IN BOOK UNDER FEBRUARY WBC 7.2 K/uL (Better) Range: 4.5-11.0 RBC 5.02 mil/uL (Better) Range: 4.20-5.40 HGB 15.2 g/dL (Better) Range: 14.0-18.0 HCT 45.8 % (Better) Range: 42.0-53.0 MCV 91.3 fL (Better) Range: 80.0-99.0 MCH 30.2 pg (Better) Range: 27.3-32.5 MCHC 33.1 % (Better) Range: 32.0-36.0 RDW 14.0 % (Better) Range: 11.6-14.8 PLATELETS 137 K/uL (Below low threshold) Range: 150-400 MPV 8.5 fL (Better) Range: 6.0-11.0 %NEUTRO 51.4 % (Better) Range: 37.0-80.0 %LYMPHS 32.6 % (Better) Range: 13.0-50.0 %MONO 8.3 % (Better) Range: 0.0-12.0 %EOS 4.8 % (Better) Range: 0.0-7.0 %BASO 1.0 % (Better) Range: 0.0-2.5 %ALEJANDRA 1.9 % (Better) Range: 0.0-5.0 NEUTRO 3.7 K/uL (Better) Range: 2.0-6.9 LYMPHS 2.4 K/uL (Better) Range: 0.6-3.4 MONOS 0.6 K/uL (Better) Range: 0.0-0.9 EOS 0.4 K/uL (Better) Range: 0.0-0.7 BASO 0.1 K/uL (Better) Range: 0.0-0.2 09:50 HEPATOBILIARY ( HIDA) Comments: Exam Date: 07: 53Dictation Date: 09:50 XN HEPATOBILIARY (Better) 09:48 Comprehensive Metabolic Panel 1212 Comments: ORDER IN BOOK UNDER FEBRUARY SODIUM 138 mmol/L (Better) Range: 133-144 POTASSIUM 4.3 mmol/L (Better) Range: 3.5-5.1 CHLORIDE 102 mmol/L (Better) Range: 98-110 CARBON DIOXIDE 31.4 mmol/L (Better) Range: 23.0-33.0 ANION GAP 5 mmol/L (Below low threshold) Range: 6-16 BUN 17 mg/dL (Better) Range: 7-18 CREATININE, SERUM 0.87 mg/dL (Better) Range: 0.43-1.13 BUN:CREATININE RATIO 20 (Better) EST GFR, >60 ml/min (Better) Range: >60 EST GFR, NON-AFR [place] >60 ml/min (Better) Range: >60 Comments: EST GFR is reported in ml/min per 1.73 m2 of body surface area. For -Malagasy, please multiple result by 1.2.----- GLUCOSE 102 mg/dL (Above high threshold) Range: 70-100 ALK PHOSPHATASE 56 U/L (Better) Range: 46-116 Comments: Please Note: New Reference Range effective 2013.----- TOTAL BILIRUBIN 0.40 mg/dL (Better) Range: 0.20-1.00 AST 19 U/L (Better) Range: 8-35 ALT 36 U/L (Better) Range: 12-78 ALBUMIN 3.2 g/dL (Below low threshold) Range: 3.4-5.0 TOTAL PROTEIN 6.8 g/dL (Better) Range: 6.4-8.2 A/G RATIO 0.9 units (Below low threshold) Range: 1.0-1.8 CALCIUM 8.4 mg/dL (Below low threshold) Range: 8.5-10.1 09:48 Lipase 1275 Comments: ORDER IN BOOK UNDER FEBRUARY LIPASE 273 U/L (Better) Range: 73-393 15-Mar-2014 14:04 CBC w/ Auto Diff 7150 WBC 6.6 K/uL (Better) Range: 4.5-11.0 RBC 5.22 mil/uL (Better) Range: 4.20-5.40 HGB 15.3 g/dL (Better) Range: 14.0-18.0 HCT 46.8 % (Better) Range: 42.0-53.0 MCV 89.6 fL (Better) Range: 80.0-99.0 MCH 29.4 pg (Better) Range: 27.3-32.5 MCHC 32.8 % (Better) Range: 32.0-36.0 RDW 13.9 % (Better) Range: 11.6-14.8 PLATELETS 176 K/uL (Better) Range: 150-400 MPV 8.9 fL (Better) Range: 6.0-11.0 %NEUTRO 47.1 % (Better) Range: 37.0-80.0 %LYMPHS 34.7 % (Better) Range: 13.0-50.0 %MONO 7.0 % (Better) Range: 0.0-12.0 %EOS 7.2 % (Above high threshold) Range: 0.0-7.0 %BASO 1.0 % (Better) Range: 0.0-2.5 %ALEJANDRA 2.9 % (Better) Range: 0.0-5.0 NEUTRO 3.1 K/uL (Better) Range: 2.0-6.9 LYMPHS 2.3 K/uL (Better) Range: 0.6-3.4 MONOS 0.5 K/uL (Better) Range: 0.0-0.9 EOS 0.5 K/uL (Better) Range: 0.0-0.7 BASO 0.1 K/uL (Better) Range: 0.0-0.2 14:21 Urinalysis, Reflex to Microscopic or Culture PRN 8005 pH 6.5 (Better) Range: 5.0-7.5 SP GRAVITY 1.020 (Better) Range: 1.010-1.030 APPEARANCE CLEAR (Better) Range: Clear COLOR YELLOW (Better) Range: Straw-Yellow PROTEIN NEGATIVE mg/dL (Better) Range: Negative-Trace GLUCOSE NEGATIVE mg/dL (Better) Range: Negative KETONE NEGATIVE mg/dL (Better) Range: Negative BILIRUB NEGATIVE (Better) Range: Negative BLOOD NEGATIVE (Better) Range: Negative UROBIL 1.0 EU/dL (Better) Range: 0.2-1.0 NITRITE NEGATIVE (Better) Range: Negative LEUK NEGATIVE (Better) Range: Negative 14:38 Comprehensive Metabolic Panel 1212 SODIUM 142 mmol/L (Better) Range: 133-144 POTASSIUM 3.9 mmol/L (Better) Range: 3.5-5.1 CHLORIDE 103 mmol/L (Better) Range: 98-110 CARBON DIOXIDE 30.7 mmol/L (Better) Range: 23.0-33.0 ANION GAP 8 mmol/L (Better) Range: 6-16 BUN 17 mg/dL (Better) Range: 7-18 CREATININE, SERUM 1.01 mg/dL (Better) Range: 0.43-1.13 BUN:CREATININE RATIO 17 (Better) EST GFR, >60 ml/min (Better) Range: >60 EST GFR, NON-AFR [place]OU[place]OREAN >60 ml/min (Better) Range: >60 Comments: EST GFR is reported in ml/min per 1.73 m2 of body surface area. For -Malagasy, please multiple result by 1.2.----- GLUCOSE 131 mg/dL (Above high threshold) Range: 70-100 ALK PHOSPHATASE 75 U/L (Better) Range: 46-116 Comments: Please Note: New Reference Range effective 2013.----- TOTAL BILIRUBIN 0.30 mg/dL (Better) Range: 0.20-1.00 AST 24 U/L (Better) Range: 8-35 ALT 41 U/L (Better) Range: 12-78 ALBUMIN 3.6 g/dL (Better) Range: 3.4-5.0 TOTAL PROTEIN 7.4 g/dL (Better) Range: 6.4-8.2 A/G RATIO 0.9 units (Below low threshold) Range: 1.0-1.8 CALCIUM 8.5 mg/dL (Better) Range: 8.5-10.1 15:25 XRay CHEST-PA & LAT Comments: Exam Date: 14:16Dictation Date: 15:25 X CHEST PA & LAT (Better) Plan of Care Planned Observations* Name Dates Details Planned Goals not documented Goal Planned Encounters* Appointment; Provider: Pipo Aponte On 07-Jun-2014 13:00 * Appointment; Provider: Pipo Aponte On 28-May-2014 15:30 * Appointment; Provider: Odin Florez On 19-Mar-2012 [...] Diagnosis: Problem not documented On 10-Jun-2012 14:00 Appointment; Pipo Aponte Encounter Diagnosis: Problem not documented On 26-May-2012 15:30 Appointment; Clarke Watts Encounter Diagnosis: Problem not documented On 28-Apr-2012 16:15 Appointment; Darrius Elkins Encounter Diagnosis: Problem not documented On 24-Apr-2012 15:15
--- OUTSIDE RECORDS SUMMARY | 2016-07-24 10:24 | XMS REPORT | Summary of Care ---
Author Author Darrius Elkins M.D. Organization Unknown Address [address] [place], [place] [address] Phone Unavailable Care Team Providers Care Talcer Name Role Phone Kirsty Elkins M.D. Unavailable [...] Past myocardial infarction (412, I25.2) Status: Active Encounter for general health examination [...] diabetes mellitus, uncontrolled (250.02, E11.65) Status: Active Medications Name Dates Details Aspirin [...] Refills: 0 Darrius Elkins M.D.* Started 24-Dec-2013 ActiveSulfamethoxazole-TMP DS 800-160 MG Oral Tablet TAKE 1 TABLET Every twelve hours * Quantity: 20 Refills: 0 Darrius Elkins M.D.* Started 15-Apr-2014 Ended 25-Apr-2014 Active Allergies and Adverse Reactions Name Dates Details No Known Drug Allergies Status: Active Past Medical History Name Dates Details History of acute bronchitis (V12.69, Z87.09) Status: Resolved Procedures Procedure Dates Details PROTIME PANEL 7000 Ordered:08-Apr-2014 HEMOGLOBIN A1C 3507 Ordered:15-Apr-2014 LIPID PROFILE 1184 Ordered:15-Apr-2014 Immunization Name Dates Details Influenza Administered on:01-Jan-2013 Fluzone Quadrivalent 0.5 ML Intramuscular Suspension Lot #: [id number] Administered on:17-Dec-2013 Family History Mother* Name Dates [...] smoked Vital Signs Date Test Result Details 15-Apr-2014 10:26 BP Systolic 122 mm[Hg] Status: BP Diastolic 80 mm[Hg] Status: Temperature 97.3 f Status: Weight 336 lb Status: Body Mass Index Calculated 43.14 kg/m2 Status: Body Surface Area Calculated 2.71 m2 Status: Results Date Description Value Details 07-Apr-2014 12:05 PROTIME PANEL 7000 PROTIME 21.6 secs (Above high threshold) Range: 12.0-14.9 INR 1.92 (Better) Plan of Care Planned Observations* Name [...]
--- OUTSIDE RECORDS SUMMARY | 2016-07-24 10:24 | XMS REPORT | Summary of Care ---
Author Author Darrius Elkins M.D. Organization Unknown Address [address] [place], [place] [id number] Phone Unavailable Care Team Providers Care Supervisor Plastering Name Role Phone Kirsty Elkins M.D. Unavailable [...] tablet daily Darrius Elkins M.D.* Started 13-Jul-2011 ActiveSimvastatin 20 [...] Refills: 0 Darrius Elkins M.D.* Started 24-Dec-2013 ActiveNitrostat 0.4 MG Sublingual Tablet Sublingual DISSOLVE 1 TAB UNDER TONGUE NEEDED FOR CHEST PAIN EVERY 5 MINUTES F OR UP TO 3 DOSES. IF NO RELIEF CALL DRErica * Quantity: 30 Refills: 1 Darrius Elkins M.D.* Started 13-Jul-2011 Active Allergies and Adverse Reactions Name Dates Details No Known Drug Allergies Status: Active Past Medical History Name Dates Details History of acute bronchitis (V12.69, Z87.09) Status: Resolved Procedures Procedure Dates Details PROTIME PANEL 7000 Ordered:08-Apr-2014 LIPID PROFILE 1184 Ordered:15-Apr-2014 HEMOGLOBIN A1C 3507 Ordered:15-Apr-2014 Quant Microalbumin 1106 Ordered:27-Apr-2014 Immunization Name Dates Details Influenza Administered on:01-Jan-2013 Fluzone Quadrivalent 0.5 ML Intramuscular Suspension Lot #: [id number] Administered on:17-Dec-2013 Family History Mother* Name Dates [...] high threshold) Range: 12.0-14.9 INR 1.92 (Better) 16-Apr-2014 08:45 CT AB/ PEL WITHOUT AND WITH ORAL AND IV CONTRAST Comments: Exam Date: 07:30Dictation Date: 08:45 XC ABD/PEL W/O & W/ (Better) Plan of Care Planned Observations* Name [...]
--- OUTSIDE RECORDS SUMMARY | 2016-07-24 10:25 | XMS REPORT ---
Author Author [facility], SYSTEM Organization Unknown Address Unknown Phone Unavailable Care Team Providers Care Crusher Assembler Name Role Phone MD STEPHENSON TIMOTHY [phone] Reason For Visit Reason for Visit from 09/06/2014 1:00 PM:* Pt Stated Reason for Adm : "knot on my right foot" Chief Complaint 735.2, 729.5, 719.7,RIGHT CHIELECTOMY 1S Social History Social History from 09/06/2014 3:31 PM:* Tobacco Use? : Current Everyday Smoker Social History from 09/06/2014 1:00 PM:* Tobacco Use? : Current Everyday Smoker Functional Status Functional Status from 09/06/2014 3:22 PM:* LOC : Alert Functional Status from 09/06/2014 3:07 PM:* LOC : Alert Functional Status from 09/06/2014 2:58 PM:* LOC : Alert Functional Status from 09/06/2014 1:00 PM:* LOC : Alert * Oriented To : Person,Place,Time,Event * Weight Bearing Status : Full * Assist Level : Independent * # Assists : Independent Vital Signs Hospital Vital Signs from 09/06/2014 3:43 PM:* Height : 6/2 ft,in * Temperature : 98.3 F * Pulse : 84 * Respirations : 16 * BP : 148/76 Hospital Vital Signs from 09/06/2014 3:30 PM:* Height : 6/2 ft,in * Pulse : 86 * Respirations : 16 * BP : 145/77 Hospital Vital Signs from 09/06/2014 3:22 PM:* Height : 6/2 ft,in * Temperature : 98.7 F * Pulse : 89 * Respirations : 16 * BP : 146/77 Hospital Vital Signs from 09/06/2014 3:15 PM:* Heart Rate : 82 * Resp Rate : 28 * Systolic BP (mmHg) : 126 * Diastolic BP (mmHg) : 79 * Mean BP (mmHg) : 95 * O2 Saturation (%) : 99 Hospital Vital Signs from 09/06/2014 3:10 PM:* Temp : 97.6 * Heart Rate : 83 * Resp Rate : 26 * Systolic BP (mmHg) : 124 * Diastolic BP (mmHg) : 54 * Mean BP (mmHg) : 102 * O2 Saturation (%) : 98 Hospital Vital Signs from 09/06/2014 3:05 PM:* Heart Rate : 82 * Resp Rate : 27 * Systolic BP (mmHg) : 137 * Diastolic BP (mmHg) : 80 * Mean BP (mmHg) : 106 * O2 Saturation (%) : 98 Hospital Vital Signs from 09/06/2014 3:00 PM:* Heart Rate : 80 * Resp Rate : 27 * Systolic BP (mmHg) : 133 * Diastolic BP (mmHg) : 72 * Mean BP (mmHg) : 104 * O2 Saturation (%) : 100 Hospital Vital Signs from 09/06/2014 2:55 PM:* Temp : 98.4 * Heart Rate : 85 * Resp Rate : 26 * Systolic BP (mmHg) : 132 * Diastolic BP (mmHg) : 78 * Mean BP (mmHg) : 93 * O2 Saturation (%) : 100 Hospital Vital Signs from 09/06/2014 1:00 PM:* Weight : 154.09/ kg * Height : 6/2 ft,in Hospital Vital Signs from 09/06/2014 12:28 PM:* Weight : 147.5/ kg * Height : 6/2 ft,in * Temperature : 97.6 F * Pulse : 84 * Respirations : 20 * BP : 132/85 Results Coagulation from 09/06/2014 1:00 PMPROTHROMBIN TIME 11.1 SECONDS (9.4-11.5 SECONDS) INR 1.1 (0.9-1.1 ) Problems Encounter Diagnosis No relevant problems exist. Encounters Encounter Diagnosis No relevant problems exist. Plan of Care Follow-up Appointments from 09/06/2014 3:31 PM:* #1 Office appointment: : Dr. Juarez * #1 Date/Time : 09/14/2014 10:00 AM * Address # 1 : [facility]: [facility] [address], [place]- [phone] or Procedures * Completed Right chielectomy right first metatarso-phangeal joint with ulcer excision, Right, by MNOIQUE CID, on 09/06/2014 1:58 PM Immunizations No immunizations administered or ordered. Hospital Course Hospital Discharge Instructions How to care for yourself at home from 09/06/2014 3:31 PM:* Discharge Activity : Do not engage in sports, heavy work or heavy lifting until your physician gives permission * Do not drive or operate machinery for: : 24 hours * Discharge Diet : As before hospitalization * Discharge Wound Care : Keep dressings dry,Notify your physician if the following develops: redness, swelling, drainage or color of drainage changes, odor or increased pain. * Call your doctor if: : Fever over 101 F or severe chills,Chest pain or other unexplained symptoms,Tingling or numbness develops,A sudden increase or decrease in weight,You have persistent or worsening symptoms,If you have Heart Failure and you gain 3 pounds within 1 week or your symptoms worsen. (Weigh at home tomorrow morning) * Specific Discharge Teaching Instructions provided: : Yes * Specific Discharge Teaching Instructions Reviewed: : Other * Discharge on Warfarin : No Allergies, Adverse Reactions, Alerts * No Latex Allergy. * No IV Contrast Allergy. * No Known Drug Allergies. Medication Medication reconciliation has not been performed.
--- OUTSIDE RECORDS SUMMARY | 2016-07-24 10:25 | XMS REPORT | Summary of Care ---
Author Author Darrius Elkins M.D. Organization Unknown Address Unknown Phone Unavailable Care Team Providers Care [employer] Worker Name Role Phone Lady Cortes Unavailable Unavailable Brittni Mcfarland, Kirsty Unavailable Unavailable Darrius Elkins Unavailable Unavailable Unavailable Unavailable Functional Status Name Dates Details Functional status health issues are not documented Status: Name Dates Details Cognitive status health issues [...] Low back pain (724.2, M54.5) Status: Active Constipation (564.00, K59.00) Status: Active Encounter for annual physical exam (V70.0, Z00.00) Status: Active Cellulitis of foot (682.7, L03.119) Status: Active Obesity (278.00, E66.9) Status: Active Cellulitis of foot, right (682.7, [...] Status: Active Rash (782.1, R21) Status: Active Encounter for general health examination (V70.0, Z00.00) Status: Active Lumbar nerve root compression (724.4, M54.16) Status: Active CAD (coronary artery disease) (414.00, I25.10) Status: Active Hyperlipidemia (272.4, E78.5) Status: Active Plaque psoriasis (696.1, L40.0) Status: Active Contact dermatitis (692.9, L25.9) Status: Active Seborrheic psoriasis (696.1, L40.8) Status: Active Nummular eczema (692.9, L30.0) Status: Active Tinea corporis (110.5, B35.4) Status: Active Medications Name Dates Details Aspirin 81 MG TABS Take 1 tablet daily Darrius Elkins M.D. Start 13-Jul-2011 Active Nitrostat 0.4 MG Sublingual Tablet Sublingual DISSOLVE 1 TAB UNDER TONGUE NEEDED FOR CHEST PAIN EVERY 5 MINUTES F OR UP TO 3 DOSES. IF NO RELIEF CALL * Quantity: 30 Refills: 1 Darrius Elkins M.D. Start 13-Jul-2011 Active Simvastatin 20 MG Oral Tablet TAKE 1 TABLET DAILY AT BEDTIME * Quantity: 90 Refills: 3 Darrius Elkins M.D. Start 13-Jul-2011 Active Metoprolol Tartrate 50 MG Oral Tablet Take 1 tablet twice a day * Quantity: 180 Refills: 1 Darrius Elkins M.D. Start 13-Jul-2011 Active MiraLax Oral Powder MIX 17 GM IN 8 OUNCES OF LIQUID AND DRINK 1 TO 2 TIMES DAILY FOR CONSTIPATION. * Quantity: 2 Refills: 6 Darrius Elkins M.D. Start 13-Jul-2011 Active Warfarin Sodium 3 MG Oral Tablet TAKE 1 TABLET Daily as directed * Quantity: 90 Refills: 0 Darrius Elkins M.D. Start Active Halobetasol Propionate 0.05 % External Cream APPLY TO AFFECTED AREAS BEHIND EARS AND ON HANDS TWICE A DAY NEEDED * Quantity: 50 Refills: 2 Darrius Elkins M.D. Start 14-Jul-2012 Active Lisinopril 5 MG Oral Tablet Take 1 tablet daily * Quantity: 90 Refills: 3 Darrius Elkins M.D. Start 11-Dec-2012 Active Warfarin Sodium 5 MG Oral Tablet TAKE 1 TABLET Daily as directed * Quantity: 90 Refills: 3 Darrius Elkins M.D. Start 31-Jul-2013 Active Halobetasol Propionate 0.05 % External Cream APPLY TO AFFECTED AREAS SPARINGLY TWICE DAILY * Quantity: 1 Refills: 2 Lady Cortes * Start 10-Jun-2014 Active 50 GM Tube PredniSONE 10 MG Oral Tablet 3 tablets x 3 days, 2 tablets x 3 days, then 1 tablet qd x 3 days. * Quantity: 18 Refills: 0 Brittni Mcfarland, Darrius R * Start Active Allergies and Adverse Reactions Name Dates Details No Known Drug Allergies (Allergy) Status: Active Past Medical History Name Dates Details History of acute bronchitis (V12.69, Z87.09) Status: Resolved History of Cellulitis of foot (682.7, L03.119) Status: Resolved History of contact dermatitis (V13.3, Z87.2) Status: Resolved Procedures Procedure Dates Details Procedures not documented Immunization Name Dates Details Influenza on: 01-Jan-2013 Fluzone Quadrivalent 0.5 ML Intramuscular Suspension Lot #: [id number] on: 17-Dec-2013 Fluzone Quadrivalent 0.5 ML Intramuscular Suspension Lot #: [id number] on: 09-Dec-2014 Family History Name Dates Details Family history of Osteoporosis (V17.81) Status: Active Name Dates Details Family history of Heart Disease (V17.49) Status: Active Name Dates Details Family history of Thyroid Disorder (V18.19) Status: Active Name Dates Details Family history of Thyroid Disorder (V18.19) Status: Active Social History Name Dates Details Tobacco use disorder (305.1, Z72.0) Status: Active History of tobacco use (V15.82, Z87.891) Status: Active Name Dates Details Former smoker Vital Signs Date Test Result Details No Known Vitals to report Results Date Description Value Details Results not documented Plan of Care Name Dates Details Planned Observations Planned Goals not documented Planned Encounters Appointment; Provider: Billy Altamirano M.D. On 06-Dec-2015 09:15 Instructions Name Dates Details Instructions not documented Encounters Appointment; Lady Sterling P.A. Encounter Diagnosis: Problem not documented On 08:30 Appointment; Darrius Elkins M.D. Encounter Diagnosis: Problem not documented On 08:45 Appointment; Pipo Aponte D.O. Encounter Diagnosis: Problem not documented On 22-Feb-2015 10:15 Appointment; Harvey Joyner Encounter Diagnosis: Problem not documented On 09-Dec-2014 16:30 Appointment; Kylee Waite DPM Encounter Diagnosis: Problem not documented On 10:15 Appointment; Kylee Waite DPM Encounter Diagnosis: Problem not documented On 09:00 Appointment; Kylee Waite DPM Encounter Diagnosis: Problem not documented On 10:00 Appointment; Darrius Elkins M.D. Encounter Diagnosis: Problem not documented On 09:00 Appointment; Kylee Waite DPM Encounter Diagnosis: Problem not documented On 04-Aug-2014 09:15 Appointment; Kylee Waite DPM Encounter Diagnosis: Problem not documented On 07-Jul-2014 13:30 Appointment; Darrius Elkins M.D. Encounter Diagnosis: Problem not documented On 10-Jun-2014 10:15 Appointment; Darrius Elkins M.D. Encounter Diagnosis: Problem not documented On 15-Apr-2014 10:15 Appointment; Darrius Elkins M.D. Encounter Diagnosis: Problem not documented On 24-Dec-2013 14:00 Appointment; Harvey Joyner Encounter Diagnosis: Problem not documented On 17-Dec-2013 15:50 Appointment; Darrius Elkins M.D. Encounter Diagnosis: Problem not documented On 23-Nov-2013 10:30
--- OUTSIDE RECORDS SUMMARY | 2016-07-24 10:25 | XMS REPORT | Summary of Care ---
Author Author Darrius Elkins M.D. Unknown Address Unknown Phone Unavailable Care Team Providers Care Yard Driver Name Role Phone Mauro Altamirano M.D. Unavailable Unavailable Kirsty Elkins M.D. Unavailable Unavailable Darrius Elkins Unavailable Unavailable Unavailable Unavailable Functional Status Name Dates Details Functional status health issues are not documented Status: Name Dates Details Cognitive status health issues are not documented Status: Problems Name Dates Details Cath RV False Aneurysm Status: Active Nausea (787.02, R11.0) Status: Active Tobacco use disorder (305.1, F17.200) Status: Active Urinary tract infection (599.0, N39.0) Status: Active Pleural effusion (511.9, J90) Status: Active Psoriasis (696.1, L40.9) Status: Active Atopic dermatitis (691.8, L20.9) Status: Active Presbyopia (367.4, H52.4) Status: Active Intertrigo (695.89, L30.4) Status: Active Wounds, multiple open, lower extremity (894.0, S81.809A) Status: Active Elevated prostate specific antigen (PSA) (790.93, R97.20) Status: Active Blood in semen (608.82, R36.1) [...] Status: Active Hypertension (401.9, I10) Status: Active High risk medication use (V58.69, Z79.899) Status: Active Former tobacco use (V15.82, Z87.891) Status: Active Rash (782.1, R21) Status: Active CAD (coronary artery disease) (414.00, I25.10) Status: Active Hyperlipidemia (272.4, E78.5) Status: Active Plaque psoriasis (696.1, L40.0) Status: Active Nummular eczema (692.9, L30.0) Status: Active Tinea corporis (110.5, B35.4) Status: Active Seborrheic psoriasis (696.1, L40.8) Status: Active Anticoagulant long-term use (V58.61, Z79.01) Status: Active Contact dermatitis (692.9, L25.9) Status: Active Medications Name Dates Details Aspirin [...] Refills: 0 Darrius Elkins M.D. Start Active Lisinopril 5 MG Oral Tablet Take 1 tablet daily * Quantity: 90 Refills: 3 Darrius Elkins M.D. Start 11-Dec-2012 Active Warfarin Sodium 5 MG Oral Tablet TAKE 1 TABLET Daily as directed * Quantity: 90 Refills: 3 Darrius Elkins M.D. Start 31-Jul-2013 Active Clobetasol Propionate 0.05 % External Cream APPLY SPARINGLY TO AFFECTED AREA(S) TWICE DAILY * Quantity: 1 Refills: 2 Billy Altamirano M.D. Start 06-Dec-2015 Active 60 GM Tube Ketoconazole 2 % External Shampoo APPLY TO SCALP AND MORROW EACH MORNING AND RINSE AFTER APPLICATION * Quantity: 1 Refills: 3 Billy Altamirano M.D. Start 06-Dec-2015 Active 100 ML Bottle PredniSONE 20 MG Oral Tablet I po qd * Quantity: 5 Refills: 0 Brittni Mcfarland, Darrius R * Start 12-Dec-2015 Active Montelukast Sodium 10 MG Oral Tablet Take 1 tablet daily * Quantity: 10 Refills: 0 Brittni Mcfarland, Darrius R * Start 16-Dec-2015 Active Allergies and Adverse Reactions Name Dates Details No Known Drug Allergies (Allergy) Status: Active Past Medical History Name Dates Details History of acute bronchitis (V12.69, Z87.09) Status: Resolved History of Cellulitis of foot (682.7, L03.119) Status: Resolved History of contact dermatitis (V13.3, Z87.2) Status: Resolved Procedures Procedure Dates Details PROTIME PANEL 7000 Ordered: 13-Dec-2015 Immunization Name Dates Details Influenza on: 01-Jan-2013 Fluzone Quadrivalent 0.5 ML Intramuscular Suspension Lot #: [id number] on: 17-Dec-2013 Fluzone Quadrivalent 0.5 ML Intramuscular Suspension Lot #: [id number] on: 09-Dec-2014 Influenza Lot #: [id number] on: 13-Dec-2015 Family History Name Dates Details Family history of Osteoporosis (V17.81) Status: Active Name Dates Details Family history of Heart Disease (V17.49) Status: Active Name Dates Details Family history of Thyroid Disorder (V18.19) Status: Active Name Dates Details Family history of Thyroid Disorder (V18.19) Status: Active Social History Name Dates Details Tobacco use disorder (305.1, F17.200) Status: Active History of tobacco use (V15.82, Z87.891) Status: Active Name Dates Details Former smoker Vital Signs Date Test Result Details 16-Dec-2015 09:15 Height 74 in Status: Body Mass Index Calculated 42.11 kg/m2 Status: Body Surface Area Calculated 2.68 m2 Status: 16-Dec-2015 09:13 BP Systolic 128 mm[Hg] Status: BP Diastolic 70 mm[Hg] Status: Temperature 97 f Status: Weight 328 lb Status: Body Mass Index Calculated 42.11 kg/m2 Status: Body Surface Area Calculated 2.68 m2 Status: Results Date Description Value Details 13-Dec-2015 12:14 PROTIME PANEL 7000 PROTIME 26.9 secs (Above high threshold) Range: 12.0-14.9 INR 2.48 Plan of Care Name Dates Details Planned Observations Planned Goals not documented Planned Encounters Appointment; Provider: Billy Altamirano M.D. On 11-Apr-2016 08:00 Interventions Provided Medication Changes* Montelukast Sodium 10 MG Oral Tablet - Start Instructions Name Dates Details Instructions not documented Encounters Appointment; Елена Melvin A.P.R.N. Encounter Diagnosis: Problem not documented On 13-Dec-2015 11:24 Appointment; Billy Altamirano M.D. Encounter Diagnosis: Problem not documented On 06-Dec-2015 09:15 Appointment; Billy Altamirano M.D. Encounter Diagnosis: Problem not documented On 08:45 Appointment; Darrius Elkins M.D. Encounter Diagnosis: Problem not documented On 15:45 Appointment; Lady Sterling P.A. Encounter Diagnosis: Problem [...]
--- OUTSIDE RECORDS SUMMARY | 2016-07-24 10:25 | XMS REPORT | Summary of Care ---
Author Author Kylee Waite DPM Organization Unknown Address [address] [place], [place] [id number] Phone Unavailable Care Team Providers Care [employer] French Teacher Name Role Phone Kylee Waite DPM Unavailable [...] Quadrivalent 0.5 ML Intramuscular Suspension Lot #: [id number] Administered on:17-Dec-2013 Family History Mother* Name Dates [...] to report Results Date Description Value Details 10:34 XRay FOOT-Right Comments: Exam Date: 09/14/2014 09: 58Dictation Date: 09/14/2014 10:34 X FOOT COMP (MIN 3V) RT ([facility]) 16:02 PROTIME PANEL 7000 Comments: 8mg PROTIME 27.2 secs (Above high threshold) Range: 12.0-14.9 INR 2.59 ([facility]) Plan of Care Planned Observations* Name Dates Details Planned Goals not documented Goal Planned Encounters* Appointment; Provider: Kylee Waite On 13:30 * [...]
--- OUTSIDE RECORDS SUMMARY | 2016-07-24 10:25 | XMS REPORT | Summary of Care ---
Author Author Darrius Elkins M.D. Organization Unknown Address [address] [place], [place] [address] Phone Unavailable Care Team Providers Care Chip Person Name Role Phone Kirsty Elkins M.D. Unavailable [...] Cellulitis of foot (682.7, L03.119) Status: Active Type 2 diabetes mellitus, uncontrolled (250.02, E11.65) Status: Active Past myocardial infarction (412, I25.2) Status: Active Medications Name Dates Details Aspirin 81 MG Oral Tablet Take 1 tablet daily Darrius Elkins M.D.* Started 13-Jul-2011 ActiveMiraLax Oral Powder MIX 17 GM IN 8 OUNCES OF LIQUID AND DRINK 1 TO 2 TIMES DAILY FOR CONSTIPATION. * Quantity: 2 Refills: 6 Darrius Elkins M.D.* Started 13-Jul-2011 ActiveNitrostat 0.4 MG Sublingual Tablet Sublingual DISSOLVE 1 TAB UNDER TONGUE NEEDED FOR CHEST PAIN EVERY 5 MINUTES F OR UP TO 3 DOSES. IF NO RELIEF CALL DRErica * Quantity: 30 Refills: 1 Darrius Elkins M.D.* Started 13-Jul-2011 ActiveWarfarin Sodium 3 MG Oral Tablet TAKE ONE TABLET BY MOUTH EVERY DAY DIRECTED * Quantity: 90 Refills: 3 Darrius Elkins M.D.* Started ActiveSimvastatin 20 MG Oral Tablet TAKE 1 TABLET DAILY AT BEDTIME * Quantity: 90 Refills: 3 Darrius Elkins M.D.* Started 13-Jul-2011 ActiveMetoprolol Tartrate 50 MG Oral Tablet Take 1 tablet twice a day * Quantity: 180 Refills: 2 Darrius Elkins M.D.* Started 13-Jul-2011 ActiveDocQLace 100 MG Oral Capsule ONE CAPSULE BY MOUTH TWO TIMES DAILY * Quantity: 60 Refills: 11 Darrius Elkins M.D.* Started 28-Jul-2012 ActiveWarfarin Sodium 5 MG Oral Tablet TAKE 1 TABLET DAILY DIRECTED. * Quantity: 90 Refills: 3 Darrius Elkins M.D.* Started 31-Jul-2013 ActiveMeloxicam 7.5 MG Oral Tablet 1QD - TAKE ONE TABLET BY MOUTH EVERY DAY * Quantity: 20 Refills: 0 Darrius Elkins M.D.* Started 12-Oct-2013 ActiveLinzess 145 MCG Oral Capsule TAKE 1 CAPSULE Every morning * Refills: 0 Darrius Elkins M.D.* Started 24-Dec-2013 ActivePredniSONE 10 MG Oral Tablet 30mg qd x 3 days. 20mg qd x 3 days. 10mg qd x 3 days * Quantity: 18 Refills: 0 Darrius Elkins M.D.* Started 10-Apr-2013 ActiveHalobetasol Propionate 0.05 % External Cream APPLY TO AFFECTED AREAS BEHIND EARS AND ON HANDS TWICE A DAY NEEDED * Quantity: 50 Refills: 2 Darrius Elkins M.D.* Started 14-Jul-2012 ActiveLisinopril 5 MG Oral Tablet Take 1 tablet daily * Quantity: 90 Refills: 1 Darrius Elkins M.D.* Started 11-Dec-2012 Active Allergies and Adverse Reactions Name Dates Details No Known Drug Allergies Status: Active Past Medical History Name Dates Details History of acute bronchitis (V12.69, Z87.09) Status: Resolved Procedures Procedure Dates Details Quant Microalbumin 1106 Ordered:27-Apr-2014 HEMOGLOBIN A1C 3507 Ordered:07-May-2014 PROTIME PANEL 7000 Ordered:07-May-2014 Immunization Name Dates Details Influenza Administered on:01-Jan-2013 Fluzone Quadrivalent 0.5 ML Intramuscular Suspension Lot #: [id number] Administered on:17-Dec-2013 Family History Mother* Name Dates [...] m2 Status: Results Date Description Value Details 16-Apr-2014 08:45 CT AB/ PEL WITHOUT AND WITH ORAL AND IV CONTRAST Comments: Exam Date: 07:30Dictation Date: 08:45 XC ABD/PEL W/O & W/ ([facility]) 07-May-2014 10:33 PROTIME PANEL 7000 Comments: Fastin [...] % (Better) ESTIMATED AVG. GLUCOSE 140 ([facility]) Plan of Care Planned Observations* Name Dates Details Planned Goals not documented Goal Planned Encounters* Appointment; Provider: Pipo Aponte On 07-Jun-2014 13:00 * Appointment; Provider: Odin Florez On 19-Mar-2012 [...]
--- OUTSIDE RECORDS SUMMARY | 2016-07-24 10:25 | XMS REPORT | Summary of Care ---
Author Author Darrius Elkins M.D. Unknown Address Unknown Phone Unavailable Care Team Providers Care Test Specialist Name Role Phone Mauro Altamirano M.D. Unavailable [...] Active Contact dermatitis (692.9, L25.9) Status: Active Acute urinary retention (788.29, R33.8) Status: Active BPH (benign prostatic hypertrophy) (600.00, N40.0) Status: Active Nocturia (788.43, R35.1) Status: Active Rectal pain (569.42, K62.89) Status: Active Hospital discharge follow-up (V67.59, Z09) Status: Active Perirectal abscess (566, K61.1) Status: Active Medications Name Dates Details Aspirin [...] 6 Darrius Elkins M.D. Start 13-Jul-2011 Active Lisinopril 5 MG Oral Tablet Take 1 tablet daily * Quantity: 90 Refills: 3 Darrius Elkins M.D. Start 11-Dec-2012 Active Clobetasol Propionate 0.05 % External Cream [...] po qd * Quantity: 5 Refills: 0 Darrius Elkins M.D. * Start 12-Dec-2015 Active Montelukast Sodium 10 MG Oral Tablet Take 1 tablet daily * Quantity: 10 Refills: 0 Darrius Elkins M.D. R * Start 16-Dec-2015 Active Hydrocodone-Acetaminophen 7.5-325 MG Oral Tablet * Refills: 0 * Start 06-Feb-2016 Active Xarelto 20 MG Oral Tablet * Refills: 0 * Start 06-Feb-2016 Active Minocycline HCl - 100 MG Oral Capsule * Refills: 0 * Start 06-Feb-2016 Active Zofran 4 MG Oral Tablet * Refills: 0 * Start 06-Feb-2016 Active Allergies and Adverse Reactions Name Dates Details No Known Drug Allergies (Allergy) Status: Active Past Medical History Name Dates Details History of acute bronchitis (V12.69, Z87.09) Status: Resolved History of Cellulitis of foot (682.7, L03.119) Status: Resolved History of contact dermatitis (V13.3, Z87.2) Status: Resolved Procedures Procedure Dates Details History of Knee Surgery History of Arthroscopy Shoulder History of Coronary Artery Four Or More Arterial Bypass Grafts History of Cholecystectomy History Of Prior Surgery PROTIME PANEL 7000 Ordered: 13-Dec-2015 Immunization Name Dates Details Influenza on: 01-Jan-2013 Fluzone Quadrivalent 0.5 ML Intramuscular Suspension Lot #: [id number] on: 17-Dec-2013 Fluzone Quadrivalent 0.5 ML Intramuscular Suspension Lot #: [id number] on: 09-Dec-2014 Influenza Lot #: [id number] on: 13-Dec-2015 Family History Name Dates Details [...] smoker Vital Signs Date Test Result Details 10-Feb-2016 11:04 BP Systolic 110 mm[Hg] Status: Comments: Location: ; Position: BP Diastolic 70 mm[Hg] Status: Comments: Location: ; Position: Weight 315 lb Status: Body Mass Index Calculated 40.44 kg/m2 Status: Body Surface Area Calculated 2.64 m2 Status: 06-Feb-2016 11:56 BP Systolic 117 mm[Hg] Status: Comments: Location: ; Position: BP Diastolic 74 mm[Hg] Status: Comments: Location: ; Position: Heart Rate 87 /min Status: Comments: Location: ; Physical Findings 16 Status: Comments: Respiration Height 74 in Status: 06-Feb-2016 10:06 BP Systolic 144 mm[Hg] Status: Comments: Location: ; Position: BP Diastolic 80 mm[Hg] Status: Comments: Location: ; Position: Temperature 97.5 f Status: Heart Rate 89 /min Status: Physical Findings 95 Status: Comments: O2 Saturation Results Date Description Value Details 06-Feb-2016 10:49 ULTRASOUND BLADDER Comments: Exam Date: 02/06/2016 10: 28Dictation Date: 02/06/2016 10:49 XS BLADDER Plan of Care Name Dates Details Planned Observations Planned Goals not documented Planned Encounters Appointment; Provider: Billy Altamirano M.D. On 11-Apr-2016 08:00 Instructions Name Dates Details Instructions not documented Encounters Appointment; Peyman Morales M.D. Encounter Diagnosis: Problem not documented On 06-Feb-2016 11:45 Appointment; Darrius Elkins M.D. Encounter Diagnosis: Problem not documented On 06-Feb-2016 09:44 Appointment; Darrius Elkins M.D. Encounter Diagnosis: Problem not documented On 16-Dec-2015 09:15 Appointment; Елена Melvin A.P.R.N. Encounter Diagnosis: Problem [...]
--- OUTSIDE RECORDS SUMMARY | 2016-07-24 10:26 | XMS REPORT | Summary of Care ---
Author Author Darrius Elkins M.D. Organization Unknown Address [address] [place], [place] [id number] Phone Unavailable Care Team Providers Care Electrophysiologist Name Role Phone Kylee Waite DPM Unavailable [...] Bacterial skin infection (686.9, L08.9) Status: Active Type 2 diabetes mellitus, uncontrolled [...] Darrius Elkins M.D.* Started 13-Jul-2011 ActiveWarfarin Sodium 5 MG Oral Tablet TAKE 1 TABLET Daily as directed * Quantity: 90 Refills: 3 Darrius Elkins M.D.* Started 31-Jul-2013 ActiveSulfamethoxazole-TMP DS 800-160 MG TABS Take 1 tablet twice daily * Quantity: 28 Refills: 0 Kylee Waite DPM* Started 04-Aug-2014 ActiveLisinopril 5 MG Oral Tablet Take 1 tablet daily * Quantity: 90 Refills: 3 Darrius Elkins M.D.* Started 11-Dec-2012 ActiveHalobetasol Propionate 0.05 % External Cream APPLY TO AFFECTED AREAS BEHIND EARS AND ON HANDS TWICE A DAY NEEDED * Quantity: 50 Refills: 2 Darrius Elkins M.D.* Started 14-Jul-2012 ActiveWarfarin Sodium 3 MG Oral Tablet TAKE 1 TABLET Daily as directed * Quantity: 90 Refills: 0 Darrius Elkins M.D.* Started ActiveNitrostat 0.4 MG Sublingual Tablet Sublingual DISSOLVE 1 TAB UNDER TONGUE NEEDED FOR CHEST PAIN EVERY 5 MINUTES F OR UP TO 3 DOSES. IF NO RELIEF CALL DRErica * Quantity: 30 Refills: 1 Darrius Elkins M.D.* Started 13-Jul-2011 ActiveHalobetasol Propionate 0.05 % External Cream APPLY TO AFFECTED AREAS SPARINGLY TWICE DAILY * Quantity: 30 Refills: 0 Darrius Elkins M.D.* Started 10-Jun-2014 Active Allergies and Adverse Reactions Name Dates Details No Known Drug Allergies Status: Active Past Medical History Name Dates Details History of acute bronchitis (V12.69, Z87.09) Status: Resolved History of Cellulitis of foot (682.7, L03.119) Status: Resolved Procedures Procedure Dates Details PROTIME PANEL 7000 Ordered:30-Dec-2014 Immunization Name Dates Details Influenza Administered on:01-Jan-2013 Fluzone Quadrivalent 0.5 ML Intramuscular Suspension Lot #: [id number] Administered on:17-Dec-2013 Fluzone Quadrivalent 0.5 ML Intramuscular Suspension Lot #: [id number] Administered on:09-Dec-2014 Family History Mother* Name Dates [...] to report Results Date Description Value Details 30-Dec-2014 12:07 PROTIME PANEL 7000 PROTIME 23.3 secs (Above high threshold) Range: 12.0-14.9 INR 2.07 ([facility]) Plan of Care Planned Observations* Name Dates Details Planned Goals not documented Goal Planned Encounters* Appointment; Provider: Kylee Waite On 13:30 * Appointment; Provider: Odin Florez On 19-Mar-2012 18:45 Instructions * Instructions not documented Encounters Appointment; Harvey Joyner Encounter Diagnosis: Problem not [...]
--- OUTSIDE RECORDS SUMMARY | 2016-07-24 10:26 | XMS REPORT ---
Author Shilo Cr [facility] eClinicalWorks Address Unknown Phone Unavailable Care Team Providers Care Legal Aide Name Role Phone Shilo Chisholm CP Unavailable Allergies No Known Allergies Problems Problem Type Condition Code Onset Dates Condition Status Problem RUQ pain 789.01 Active Problem Fatty liver 571.8 Active Problem Chronic constipation 564.00 Active Medications No Known Medications Results No Known Results Summary Purpose eClinicalWorks Submission
--- OUTSIDE RECORDS SUMMARY | 2016-07-24 10:26 | XMS REPORT | Summary of Care ---
Author Author Darrius Elkins M.D. 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 IF NO RELIEF CALL DRErica Quantity: 30 Darrius Elkins M.D.* Started 13-Jul-2011 ActiveSimvastatin 20 [...] M.D.* Started 10-Jun-2014 ActiveSulfamethoxazole-TMP DS 800-160 MG TABS Take 1 [...] 90 Refills: 0 Darrius Elkins M.D.* Started ActiveAspirin 81 MG Oral Tablet Take 1 tablet daily * Refills: 0 Darrius Elkins M.D.* Started 13-Jul-2011 Active Allergies and Adverse Reactions Name Dates Details No Known Drug Allergies Status: Active Past Medical History Name Dates Details History of acute bronchitis (V12.69, Z87.09) Status: Resolved History of Cellulitis of foot (682.7, L03.119) Status: Resolved Procedures Procedure Dates Details PROTIME PANEL 7000 Ordered:24-Jan-2015 HEMOGLOBIN A1C 3507 Ordered:25-Jan-2015 Immunization Name Dates Details Influenza Administered on:01-Jan-2013 Fluzone Quadrivalent 0.5 ML Intramuscular Suspension Lot #: [id number] Administered on:17-Dec-2013 Fluzone Quadrivalent 0.5 ML Intramuscular Suspension Lot #: [id number] Administered on:09-Dec-2014 Family History Mother* Name Dates [...] Details Results not documented Plan of Care Planned Observations* Name Dates Details Planned Goals not documented Goal Planned Encounters* Appointment; Provider: Kylee Waite On 13:30 * Appointment; Provider: Odin Gautam On 19-Mar-2012 18:45 Instructions * Instructions not documented Encounters Appointment; Pipo Aponte Encounter Diagnosis: Problem not [...]
--- OUTSIDE RECORDS SUMMARY | 2016-07-24 10:26 | XMS REPORT | Summary of Care ---
Author Author Darrius Elkins M.D. Organization Unknown Address [address] [place], [place] [address] Phone Unavailable Care Team Providers Care Ice Cream Van Vendor Name Role Phone Kylee Waite DPM Unavailable [...] Refills: 6 Darrius Elkins M.D.* Started 13-Jul-2011 ActiveHalobetasol Propionate 0.05 % External Cream APPLY TO AFFECTED AREAS BEHIND EARS AND ON HANDS TWICE A DAY NEEDED * Quantity: 50 Refills: 2 Darrius Elkins M.D.* Started 14-Jul-2012 ActiveSulfamethoxazole-TMP DS 800-160 MG Oral Tablet Take 1 tablet twice daily * Quantity: 28 Refills: 0 Kylee Waite DPM* Started 04-Aug-2014 ActiveWarfarin Sodium 5 MG Oral Tablet TAKE 1 TABLET Daily as directed * Quantity: 90 Refills: 0 Darrius Elkins M.D.* Started 31-Jul-2013 ActiveWarfarin Sodium 3 MG Oral Tablet TAKE ONE TABLET BY MOUTH EVERY DAY DIRECTED * Quantity: 90 Refills: 3 Darrius Elkins M.D.* Started ActiveHalobetasol Propionate 0.05 % External Cream APPLY TO AFFECTED AREAS SPARINGLY TWICE DAILY * Quantity: 30 Refills: 0 Darrius Elkins M.D.* Started 10-Jun-2014 ActiveLisinopril 5 MG Oral Tablet Take 1 tablet daily * Quantity: 90 Refills: 3 Darrius Elkins M.D.* Started 11-Dec-2012 ActiveMetoprolol Tartrate 50 MG Oral Tablet Take 1 tablet twice a day * Quantity: 180 Refills: 2 Darrius Elkins M.D.* Started 13-Jul-2011 ActiveSimvastatin 20 MG Oral Tablet TAKE 1 TABLET DAILY AT BEDTIME * Quantity: 90 Refills: 3 Darrius Elkins M.D.* Started 13-Jul-2011 ActiveNitrostat 0.4 [...] Quadrivalent 0.5 ML Intramuscular Suspension Lot #: [id number] Administered on:17-Dec-2013 Family History Mother* Name Dates [...]
--- OUTSIDE RECORDS SUMMARY | 2016-07-24 10:26 | XMS REPORT | Summary of Care ---
Author Author Darrius Elkins M.D. Unknown Address Unknown Phone Unavailable Care Team Providers Care Offset Lithographic Press Operator Name Role Phone Mauro Altamirano M.D. Unavailable Unavailable Kirsty Elkins M.D. Unavailable Unavailable Darrius Elkins Unavailable Unavailable Unavailable Unavailable Functional Status Name Dates Details Functional status health issues are not documented Status: Name Dates Details Cognitive status health issues are not documented Status: Problems Name Dates Details Cath RV False Aneurysm Status: Active Lumbar nerve root compression (724.4, M54.16) Status: Active Pre-op examination (V72.84, Z01.818) Status: Active High risk medication use (V58.69, Z79.899) Status: Active Sebaceous hyperplasia (706.8, L73.8) Status: Active BPH (benign prostatic hypertrophy) (600.00, N40.0) Status: Active Myopia of both eyes (367.1, H52.13) Status: Active 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, 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20) Status: Active Ulcer of foot (707.15, L97.509) Status: Active History of tobacco use (V15.82, Z87.891) Status: Active Plaque psoriasis (696.1, L40.0) Status: Active CAD (coronary artery disease) (414.00, I25.10) Status: Active Atopic dermatitis (691.8, L20.9) Status: Active Rash (782.1, R21) Status: Active Difficulty in walking (719.7, R26.2) Status: Active Hyperlipidemia (272.4, E78.5) Status: Active Limb pain (729.5, M79.609) Status: Active Pleural effusion (511.9, J90) Status: Active Psoriasis (696.1, L40.9) Status: Active Tachycardia (785.0, R00.0) Status: Active Tobacco use disorder (305.1, F17.200) Status: Active Vertigo (780.4, R42) Status: Active Peripheral vascular disease (443.9, I73.9) Status: Active Intertrigo (695.89, L30.4) Status: Active Seborrheic psoriasis (696.1, L40.8) Status: Active COPD exacerbation (491.21, J44.1) Status: Active Anticoagulant long-term use (V58.61, Z79.01) Status: Active Wounds, multiple open, lower extremity (894.0, S81.809A) Status: Active 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, 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 Hypertension (401.9, I10) Status: Active Nausea (787.02, R11.0) Status: Active Rectal pain (569.42, K62.89) Status: Active Perirectal abscess (566, K61.1) Status: Active Past myocardial infarction (412, I25.2) Status: Active Obesity (278.00, E66.9) Status: Active Contact dermatitis (692.9, L25.9) Status: Active Former tobacco use (V15.82, Z87.891) Status: Active Chronic ulcer of right foot (707.15, 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: Active 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, E11.49) Status: Active Medications Name Dates Details Aspirin [...] Quantity: 5 Refills: 0 Darrius Elkins M.D. Start 12-Dec-2015 Active Montelukast Sodium 10 MG Oral Tablet Take 1 tablet daily * Quantity: 10 Refills: 0 Darrius Elkins M.D. Start 16-Dec-2015 Active Hydrocodone-Acetaminophen 7.5-325 MG Oral [...] Resolved Procedures Procedure Dates Details History of Cholecystectomy History Of Prior Surgery History of Coronary Artery Four Or More Arterial Bypass Grafts History of Arthroscopy Shoulder History of Knee Surgery PSA ( PROSTATE SPECIFIC ANTIGEN) 3100 Ordered: 17-Apr-2016 CBC w/ Auto Diff 7150 Ordered: 17-Apr-2016 Comprehensive Metabolic Panel 1212 Ordered: 17-Apr-2016 HEMOGLOBIN A1C 3507 Ordered: 17-Apr-2016 Quant Microalbumin 1106 Ordered: 17-Apr-2016 THYROID STIM. HORMONE 3602 Ordered: 17-Apr-2016 LIPID PROFILE 1184 Ordered: 17-Apr-2016 Immunization Name Dates Details Influenza on: 01-Jan-2013 Fluzone Quadrivalent 0.5 ML Intramuscular Suspension Lot #: [id number] on: 17-Dec-2013 Fluzone Quadrivalent 0.5 ML Intramuscular Suspension Lot #: [id number] on: 09-Dec-2014 Influenza Lot #: [id number] on: 13-Dec-2015 Family History Name Dates Details Family history of Osteoporosis (V17.81) Status: Active Name Dates Details Family history of Heart Disease (V17.49) Status: Active Name Dates Details Family history of Thyroid Disorder (V18.19) Status: Active Name Dates Details Family history of Thyroid Disorder (V18.19) Status: Active Social History Name Dates Details History of tobacco use (V15.82, Z87.891) Status: Active Tobacco use disorder (305.1, F17.200) Status: Active Name Dates Details Former smoker Vital Signs Date Test Result Details No Known Vitals to report Results Date Description Value Details 27-Apr-2016 08:48 Urinalysis, Reflex to Microscopic or Culture PRN 8005 pH 6.0 Range: 5.0-7.5 SP GRAVITY 1.030 Range: 1.010-1.030 APPEARANCE Clear Range: Clear COLOR Yellow Range: Straw-Yellow PROTEIN Negative mg/dL Range: Negative-Trace GLUCOSE Negative mg/dL Range: Negative KETONE Negative mg/dL Range: Negative BILIRUB Negative Range: Negative BLOOD Negative Range: Negative UROBIL 0.2 EU/dL Range: 0.2-1.0 NITRITE Negative Range: Negative LEUK Negative Range: Negative Plan of Care Name Dates Details Planned Observations Planned Goals not documented Interventions Provided Labs/Procedures/Imaging* CBC w/ Auto Diff 7150; To be Done: 17 Apr 2016 * Comprehensive Metabolic Panel 1212; To be Done: 17 Apr 2016 * HEMOGLOBIN A1C 3507; To be Done: 17 Apr 2016 * LIPID PROFILE 1184; To be Done: 17 Apr 2016 * PSA ( PROSTATE SPECIFIC ANTIGEN) 3100; To be Done: 17 Apr 2016 * Quant Microalbumin 1106; To be Done: 17 Apr 2016 * THYROID STIM. HORMONE 3602; To be Done: 17 Apr 2016 * Urinalysis, Reflex to Microscopic or Culture PRN 8005; Done: Apr 27 2016 8: 46AM Instructions Name Dates Details Instructions not documented Encounters Appointment; Samuel Mccartney M.D. Encounter Diagnosis: Problem not documented On 18-Feb-2016 09:59 Appointment; Darrius Elkins M.D. Encounter Diagnosis: Problem not documented On 10-Feb-2016 10:45 Appointment; Peyman Morales M.D. Encounter Diagnosis: Problem [...]
--- OUTSIDE RECORDS SUMMARY | 2016-07-24 10:26 | XMS REPORT | Summary of Care ---
Author Author Darrius Elkins M.D. Organization Unknown Address [address] [place], [place] [id number] Phone Unavailable Care Team Providers Care Nurse Administrator Name Role Phone Kylee Waite DPM Unavailable [...] Active Pre-op examination (V72.84, Z01.818) Status: Active Medications Name Dates Details Aspirin [...] Quadrivalent 0.5 ML Intramuscular Suspension Lot #: [id number] Administered on:17-Dec-2013 Family History Mother* Name Dates [...] 7150 Comments: DOS 09-06-14 Dr. Waite @ [facility] WBC 6.3 K/uL (Better) Range: 4.5-11.0 RBC [...] ml/min (Better) Range: >60 EST GFR, NON-AFR HONDURAN >60 ml/min (Better) Range: >60 Comments: EST GFR is reported in ml/min per 1.73 m2 of body surface area. For -[place], please multiple result by 1.2.----- GLUCOSE 142 [...] 8.4 mg/dL (Below low threshold) Range: 8.5-10.1 Plan of Care Planned Observations* Name Dates Details Planned Goals not documented Goal Planned Encounters* Appointment; Provider: Kylee Waite On 11:00 * Appointment; Provider: Odin Florez On 19-Mar-2012 [...]
--- OUTSIDE RECORDS SUMMARY | 2016-07-24 10:27 | XMS REPORT | Summary of Care ---
Author Author Darrius Elkins M.D. Organization Unknown Address [address] [place], [place] [address] Phone Unavailable Care Team Providers Care Electroformer Name Role Phone Kirsty Elkins M.D. Unavailable [...] Procedure Dates Details HEMOGLOBIN A1C 3507 Ordered:07-May-2014 PROTIME PANEL 7000 Ordered:07-May-2014 Immunization Name Dates Details Influenza Administered on:01-Jan-2013 Fluzone Quadrivalent 0.5 ML Intramuscular Suspension Lot #: [id number] Administered on:17-Dec-2013 Family History Mother* Name Dates [...] MICROALBUMIN, URINE 4.3 mg/L (Better) Range: <20.1 Plan of Care Planned Observations* Name Dates [...]
--- OUTSIDE RECORDS SUMMARY | 2016-07-24 10:27 | XMS REPORT | Summary of Care ---
Author Author Darrius Elkins M.D. Organization Unknown Address [address] [place], [place] [address] Phone Unavailable Care Team Providers Care Sample Cutter Name Role Phone Darrius Elkins Unavailable Unavailable Unavailable Unavailable Functional Status Functional Status Health Issues* Name Dates Details No known functional status health issues Status: Cognitive Status Health Issues* Name Dates Details No known cognitive status health issues Status: Problems Name Dates Details Nausea (787.02, R11.0) Status: Active Tobacco use disorder (305.1, F17.200) Status: Active Urinary tract infection (599.0, N39.0) Status: Active Acute bronchitis (466.0, J20.9) Status: Active Pleural effusion (511.9, J90) Status: Active Psoriasis (696.1, L40.9) Status: Active Atopic dermatitis (691.8, L20.9) Status: Active Contact dermatitis (692.9, L25.9) Status: Active Hypertension (401.9, I10) Status: Active Obesity (278.00, E66.9) Status: Active Encounter for general health examination (V70.0, Z00.00) Status: Active Myopia (367.1, H52.10) Status: Active Presbyopia (367.4, H52.4) Status: Active Intertrigo (695.89, L30.4) Status: Active Elevated prostate specific antigen (PSA) (790.93, R97.2) Status: Active Rash (782.1, R21) Status: Active Blood in semen (608.82, R36.1) Status: Active History of tobacco use (V15.82, Z87.891) Status: Active Hyperlipidemia (272.4, E78.5) Status: Active Constipation (564.00, K59.00) Status: Active Vertigo (780.4, R42) Status: Active Hematuria (599.70, R31.9) Status: Active 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, 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 Low back pain (724.2, M54.5) Status: Active Lumbar nerve root compression (724.4, M54.16) Status: Active High risk medication use (V58.69, Z79.899) Status: Active Past myocardial infarction (412, I25.2) Status: Active Cath RV False Aneurysm Status: Active Glaucoma suspect (365.00, H40.009) Status: Active Sebaceous hyperplasia (706.8, L73.8) Status: Active Wounds, multiple open, lower extremity (894.0, S81.809A) Status: Active Medications Name Dates Details Aspirin 81 MG Oral Tablet Take 1 tablet daily * Started 13-Jul-2011 ActiveNitrostat 0.4 MG Sublingual Tablet Sublingual DISSOLVE 1 TAB UNDER TONGUE NEEDED FOR CHEST PAIN EVERY 5 MINUTES F OR UP TO 3 DOSES. IF NO RELIEF CALL * Quantity: 30 Tablet Sublingual Refills: 1 * Started 13-Jul-2011 ActiveSimvastatin 20 MG Oral Tablet TAKE 1 TABLET DAILY AT BEDTIME. * Quantity: 90 Tablet Refills: 1 * Started 13-Jul-2011 ActiveMetoprolol Tartrate 50 MG Oral Tablet TAKE ONE TABLET BY MOUTH TWO TIMES A DAY. * Quantity: 180 Tablet Refills: 1 * Started 13-Jul-2011 ActiveMiraLax Oral Powder MIX 17 GM IN 8 OUNCES OF LIQUID AND DRINK 1 TO 2 TIMES DAILY FOR CONSTIPATION. * Quantity: 2 GM Refills: 6 * Started 13-Jul-2011 ActiveWarfarin Sodium 3 MG Oral Tablet TAKE ONE TABLET BY MOUTH EVERY DAY DIRECTED * Quantity: 90 Not Specified Refills: 3 * Started ActiveHalobetasol Propionate 0.05 % External Cream APPLY TO AFFECTED AREAS BEHIND EARS AND ON HANDS TWICE A DAY NEEDED * Quantity: 50 GM Refills: 2 * Started 14-Jul-2012 ActiveDocQLace 100 MG Oral Capsule ONE CAPSULE BY MOUTH TWO TIMES DAILY * Quantity: 60 Capsule Refills: 11 * Started 28-Jul-2012 ActiveWarfarin Sodium 5 MG Oral Tablet TAKE 1 TABLET DAILY DIRECTED. * Quantity: 90 Tablet Refills: 3 * Started 31-Jul-2013 ActiveLisinopril 5 MG Oral Tablet I po qd * Quantity: 90 Tablet Refills: 1 * Started 11-Dec-2012 ActiveMeloxicam 7.5 MG Oral Tablet 1QD - TAKE ONE TABLET BY MOUTH EVERY DAY * Quantity: 20 Tablet Refills: 0 * Started 12-Oct-2013 Active Allergies and Adverse Reactions Name Dates Details No Known Drug Allergies Status: Active Procedures Procedure Dates Details Surgical history not documented PROTIME PANEL 7000 Immunization Name Dates Details Influenza Administered on:01-Jan-2013 Family History Mother* Name Dates Details Osteoporosis (V17.81) Status: Active Father* Name Dates Details Heart Disease (V17.49) Status: Active Sister* Name Dates Details Thyroid Disorder (V18.19) Status: Active Brother* Name Dates Details Thyroid Disorder (V18.19) Status: Active Social History Name Dates Details Tobacco use disorder (305.1, F17.200) History of tobacco use (V15.82, Z87.891) Smoking Status* Unknown if ever smoked Vital Signs Date Test Result Details No Known Vitals to report Results Date Description Value Details Results not documented Plan of Care Instructions* Instructions not documented Planned Observations* Name Dates Details Planned Goals not documented Goal Planned Encounters* Appointment; Provider: Pipo Aponte On 07-Jun-2014 13:00 * Appointment; Provider: Pipo Aponte On 28-May-2014 15:30 * Appointment; Provider: Odin Gautam On 19-Mar-2012 18:45 Instructions * No Known Instructions Encounters Appointment; Darrius Elkins Encounter Diagnosis: Problem [...] Diagnosis: Problem not documented On 24-Apr-2012 15:15 Appointment; Darrius Elkins Encounter Diagnosis: Problem not documented On 17-Mar-2012 15:30 Appointment; Odin Florez Encounter Diagnosis: Problem not documented On 27-Feb-2012 15:30 Appointment; Darrius Elkins Encounter Diagnosis: Problem not documented On 12-Feb-2012 15:00 Appointment; Darrius Elkins Encounter Diagnosis: Problem not documented On 28-Dec-2011 13:45 Appointment; Odin Florez Encounter Diagnosis: Problem not documented On 25-Dec-2011 15:30 Appointment; Darrius Elkins Encounter Diagnosis: Problem not documented On 21-Dec-2011 13:30
--- OUTSIDE RECORDS SUMMARY | 2016-07-24 10:27 | XMS REPORT | Referral Summary ---
Author Author [facility] Organization [facility] Address Unknown Phone Unavailable Care Team Providers Care Database Programmer Name Role Phone Kirsty Elkins Primary Care Physician [phone] Encounter VC Date(s): 02/08/16 - 02/08/16 [facility] [address] [place], [place] [address] Discharge Disposition: 01-Home or Self Care Attending Physician: Cj Hewitt MD Admitting Physician: Cj Hewitt MD Vital Signs Most recent to 1 2 oldest [Reference Range]: Temperature Oral 36.6 degC [35.8-37.3 degC] (02/08/16 9:15 PM) Temperature Temporal 36.4 degC Artery [36.3-37.8 (02/08/16 5:45 PM) degC] Peripheral Pulse 113 bpm Rate [60-100 bpm] *HI* (02/08/16 9:15 PM) Heart Rate Monitored 78 bpm 77 bpm [60-100 bpm] (02/08/16 6:10 PM) (02/08/16 6:10 PM) Respiratory Rate 18 br/min [14-20 br/min] (02/08/16 9:15 PM) Blood Pressure 135/85 mmHg [90-140/60-90 mmHg] (02/08/16 9:15 PM) Mean Arterial 85 mmHg Pressure, Cuff (02/08/16 6:10 PM) SpO2 95 % (02/08/16 9:15 PM) Problem List Condition Effective Dates Status Health Status Informant NSTEMI (non-ST Active patient elevated myocardial infarction)(Confirme d) Acute Active pain(Confirmed) Atherosclerotic Active patient heart disease(Confirmed) Constipation(Confirm Active patient ed) H/O heart bypass Active patient surgery(Confirmed) History of high Active patient blood pressure(Confirmed) Hyperlipidemia(Confi Active patient rmed) Hypertension(Confirm Active patient ed) Depression(Confirmed Active patient ) Sleep Active patient apnea(Confirmed) Smoker(Confirmed) Active patient Allergies, Adverse Reactions, Alerts No Known Medication Allergies Medications Roman Low Dose 81 mg, Oral, Daily, 0 Refill(s) Start Date: 02/08/16 Status: Ordered HYDROcodone-acetaminophen 7.5 mg-325 mg oral tablet 1 tabs, Oral, q8hr (scheduled), as needed for pain, 0 Refill(s) Start Date: 02/08/16 Status: Ordered Levsin SL 0.125 mg sublingual tablet 0.125 mg 1 tabs, SubLingual, q4hr, # 15 tabs, 0 Refill(s) Start Date: 02/03/16 Status: Ordered lisinopril 5 mg oral tablet 5 mg 1 tabs, Oral, Daily, # 30 tabs, 0 Refill(s) Start Date: 02/08/16 Status: Ordered metoprolol tartrate 50 mg oral tablet 50 mg 1 tabs, Oral, BID, # 60 tabs, 0 Refill(s) Start Date: 02/08/16 Status: Ordered minocycline 100 mg oral tablet 100 mg 1 tabs, Oral, Daily, # 30 tabs, 0 Refill(s) Start Date: 02/08/16 Status: Ordered MiraLax oral powder for reconstitution 17 g, Oral, Daily, dissolve in water before taking, # 255 g, 0 Refill(s) Start Date: 02/08/16 Status: Ordered Nitrostat 0.4 mg sublingual tablet 0.4 mg 1 tabs, SubLingual, q5min, as needed for chest pain, # 100 tabs, 0 Refill (s) Start Date: 02/08/16 Status: Ordered simvastatin 20 mg oral tablet 20 mg 1 tabs, Oral, Bedtime (once a day), # 30 tabs, 0 Refill(s) Start Date: 02/08/16 Status: Ordered Xarelto 20 mg oral tablet 20 mg 1 tabs, Oral, qPM, # 30 tabs, 0 Refill(s) Start Date: 02/08/16 Status: Ordered Results Chemistry Most recent to 1 oldest [Reference Range]: Blood Glucose, 105 mg/dL Capillary [70-100 *HI* mg/dL] (02/08/16 3:12 PM) Urinalysis Most recent to 1 oldest [Reference Range]: UA Color Yellow (02/08/16 3:44 PM) UA Appear Clear (02/08/16 3:44 PM) UA pH [5.0-8.0] 5.0 (02/08/16 3:44 PM) UA Leuk Est Negative [Negative] (02/08/16 3:44 PM) UA Nitrite Negative [Negative] (02/08/16 3:44 PM) UA Protein Negative [Negative] (02/08/16 3:44 PM) UA Glucose Negative [Negative] (02/08/16 3:44 PM) UA Ketones Negative [Negative] (02/08/16 3:44 PM) UA Urobilinogen Negative [<1.0] (02/08/16 3:44 PM) UA Bili [Negative] Negative (02/08/16 3:44 PM) UA Blood [Negative] Negative (02/08/16 3:44 PM) UA Spec Grav 1.015 [1.003-1.030] (02/08/16 3:44 PM) Type Clean Catch (02/08/16 3:44 PM) Microbiology Reports TEST: Wound Culture and Smear STATUS: Order in Progress BODY SITE: SOURCE: Wound-Surgical, collected in OR COLLECTED DATE/TIME: 02/08/16 4:45 PM Gram Smear Many (10-20/OIF) white blood cells Rare (0-1/OIF) gram positive cocci in pairs Rare (0-1/OIF) gram positive rods OIF=Oil Immersion Field LPF=Low Power Field Immunizations No data available for this section Procedures Procedure Date Related Diagnosis Body Site Incision and Drainage Perineal Area1 02/08/16 Arthroscopy of knee2 Bone spur3 CABG x 4 - Coronary artery bypass grafts x 4 Cholecystectomy Colonoscopy Rotator cuff4 Surgery5 1auto-populated from documented surgical case 2RIGHT AND LEFT 3RIGHT GREAT TOE 4RIGHT AND LEFT; HARDWARE IN PLACE 5EAR TUBES Social History Social History Type Response Smoking Status Current some day smoker; Tobacco use per day: Less than 1/4 pack; Number of years: 48 Assessment and Plan No data available for this section
--- OUTSIDE RECORDS SUMMARY | 2016-07-24 10:27 | XMS REPORT | Summary of Care ---
Author Author Darrius Elkins M.D. Organization Unknown Address [address] [place], [place] [id number] Phone Unavailable Care Team Providers Care Training Developer Name Role Phone Kylee Waite DPM Unavailable [...] of both eyes (367.1, H52.13) Status: Active Hyperlipidemia (272.4, E78.5) Status: Active Hypertension (401.9, I10) Status: Active High risk medication use (V58.69, Z79.899) Status: Active Medications Name Dates Details Aspirin [...] L03.119) Status: Resolved Procedures Procedure Dates Details Comprehensive Metabolic Panel 1212 Ordered:14-Mar-2015 PSA ( PROSTATE SPECIFIC ANTIGEN) 3100 Ordered:14-Mar-2015 PROTIME PANEL 7000 Ordered:14-Mar-2015 Immunization Name Dates Details Influenza Administered on:01-Jan-2013 Fluzone Quadrivalent 0.5 ML Intramuscular Suspension Lot #: [id number] Administered on:17-Dec-2013 Fluzone Quadrivalent 0.5 ML Intramuscular Suspension Lot #: [id number] Administered on:09-Dec-2014 Family History Mother* Name Dates [...] to report Results Date Description Value Details 09-May-2015 07:52 Urinalysis, Reflex to Microscopic or Culture PRN 8005 Comments: Fastin hours pH 5.5 (Better) Range: 5.0-7.5 SP GRAVITY 1.030 (Better) Range: 1.010-1.030 APPEARANCE Clear (Better) Range: Clear COLOR Yellow (Better) Range: Straw-Yellow PROTEIN Negative mg/dL (Better) Range: Negative-Trace GLUCOSE Negative mg/dL (Better) Range: Negative KETONE Negative mg/dL (Better) Range: Negative BILIRUB Negative (Better) Range: Negative BLOOD Negative (Better) Range: Negative UROBIL 0.2 EU/dL (Better) Range: 0.2-1.0 NITRITE Negative (Better) Range: Negative LEUK Negative (Better) Range: Negative 10:21 Quant Microalbumin 1106 Comments: Fastin hours MICROALBUMIN, URINE 6.7 mg/L (Better) Range: <20.1 10:38 CBC w/ Auto Diff 7150 Comments: Fastin hours WBC 6.0 K/uL (Better) Range: 4.5-11.0 RBC 5.86 mil/uL (Above high threshold) Range: 4.20-5.40 HGB 17.1 g/dL (Better) Range: 14.0-18.0 HCT 51.7 % (Better) Range: 42.0-53.0 MCV 88.2 fL (Better) Range: 80.0-99.0 MCH 29.1 pg (Better) Range: 27.3-32.5 MCHC 33.0 % (Better) Range: 32.0-36.0 RDW 14.1 % (Better) Range: 11.6-14.8 PLATELETS 163 K/uL (Better) Range: 150-400 MPV 10.6 fL (Better) Range: 6.0-11.0 %NEUTRO 41.1 % (Better) Range: 37.0-80.0 %LYMPHS 38.2 % (Better) Range: 13.0-50.0 %MONO 8.1 % (Better) Range: 0.0-12.0 %EOS 7.9 % (Above high threshold) Range: 0.0-7.0 %BASO 0.9 % (Better) Range: 0.0-2.5 %ALEJANDRA 3.7 % (Better) Range: 0.0-5.0 NEUTRO 2.5 K/uL (Better) Range: 2.0-6.9 LYMPHS 2.3 K/uL (Better) Range: 0.6-3.4 MONOS 0.5 K/uL (Better) Range: 0.0-0.9 EOS 0.5 K/uL (Better) Range: 0.0-0.7 BASO 0.1 K/uL (Better) Range: 0.0-0.2 Plan of Care Planned Observations* Name Dates [...]
--- OUTSIDE RECORDS SUMMARY | 2016-07-24 10:27 | XMS REPORT | Summary of Care ---
Author Author Darrius Elkins M.D. Organization Unknown Address Unknown Phone Unavailable Care Team Providers Care Laboratory Secretary Name Role Phone Lady Cortes Unavailable Unavailable Brittni Mcfarland, Kirsty Unavailable Unavailable Darrius Elkins PP Unavailable Unavailable Unavailable Functional Status Functional Status Health Issues* Name Dates Details Functional status health issues are not documented Status: Cognitive Status Health Issues* Name Dates Details Cognitive status health issues are not documented Status: Problems Name Dates Details Cellulitis of foot (682.7, L03.119) Status: Active Obesity (278.00, E66.9) Status: Active Acquired hallux rigidus, right (735.2, M20.21) Status: Active Limb pain (729.5, M79.609) Status: Active Difficulty in walking (719.7, R26.2) Status: Active 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, 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: Active Nummular eczema (692.9, L30.0) Status: Active Contact dermatitis (692.9, L25.9) Status: Active Bacterial skin infection (686.9, L08.9) Status: Active Ulcer of foot (707.15, L97.509) Status: Active Peripheral vascular disease (443.9, I73.9) Status: Active Diabetic neuropathy (250.60, E11.40) Status: Active Acquired hallux rigidus, right (735.2, M20.21) Status: Active Cellulitis of foot, right (682.7, L03.115) Status: Active Constipation (564.00, K59.00) Status: Active Encounter for general health examination (V70.0, Z00.00) Status: Active Lumbar nerve root compression (724.4, M54.16) Status: Active Low back pain (724.2, M54.5) Status: Active Hematuria (599.70, R31.9) Status: Active Sebaceous hyperplasia (706.8, L73.8) Status: Active Vertigo (780.4, R42) Status: Active History of tobacco use (V15.82, Z87.891) Status: Active Blood in semen (608.82, R36.1) Status: Active Elevated prostate specific antigen (PSA) (790.93, R97.2) Status: Active Wounds, multiple open, lower extremity (894.0, S81.809A) Status: Active Intertrigo (695.89, L30.4) Status: Active Presbyopia (367.4, H52.4) Status: Active Atopic dermatitis (691.8, L20.9) Status: Active Psoriasis (696.1, L40.9) Status: Active Pleural effusion (511.9, J90) Status: Active Urinary tract infection (599.0, N39.0) Status: Active Tobacco use disorder (305.1, Z72.0) Status: Active Nausea (787.02, R11.0) Status: Active Plaque psoriasis (696.1, L40.0) Status: Active Tinea corporis (110.5, B35.4) Status: Active Hyperlipidemia (272.4, E78.5) Status: Active CAD (coronary artery disease) (414.00, I25.10) Status: Active Rash (782.1, R21) Status: Active Former tobacco use (V15.82, Z87.891) Status: Active High risk medication use (V58.69, Z79.899) Status: Active Anticoagulant long-term use (V58.61, Z79.01) Status: Active Hypertension (401.9, I10) Status: Active Myopia of both eyes (367.1, H52.13) Status: Active 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 Quantity: 18 Darrius Elkins M.D.* Started ActiveMiraLax Oral Powder MIX 17 GM IN 8 OUNCES OF LIQUID AND DRINK 1 TO 2 TIMES DAILY FOR CONSTIPATION. * Quantity: 2 Refills: 6 Darrius Elkins M.D.* Started 13-Jul-2011 ActiveAspirin 81 MG TABS Take 1 tablet daily * Refills: 0 Darrius Elkins M.D.* Started 13-Jul-2011 ActiveMetoprolol Tartrate 50 MG Oral Tablet Take 1 tablet twice a day * Quantity: 180 Refills: 1 Darrius Elkins M.D.* Started 13-Jul-2011 ActiveLisinopril 5 MG Oral Tablet Take 1 [...] 1 Refills: 2 Lady Sterling* Started 10-Jun-2014 [id number] GM Tube Nitrostat 0.4 MG Sublingual Tablet Sublingual DISSOLVE 1 TAB UNDER TONGUE NEEDED FOR CHEST PAIN EVERY 5 MINUTES F OR UP TO 3 DOSES. IF NO RELIEF CALL DRErica * Quantity: 30 Refills: 1 Darrius Elkins M.D.* Started 13-Jul-2011 ActiveSimvastatin 20 MG Oral Tablet TAKE 1 TABLET DAILY AT BEDTIME * Quantity: 90 Refills: 3 Darrius Elkins M.D.* Started 13-Jul-2011 Active Allergies [...] Quadrivalent 0.5 ML Intramuscular Suspension Lot #: [id number] Administered on:17-Dec-2013 Fluzone Quadrivalent 0.5 ML Intramuscular Suspension Lot #: [id number] Administered on:09-Dec-2014 Family History Mother* Name Dates Details Family history of Osteoporosis (V17.81) Status: Active Father* Name Dates Details Family history of Heart Disease (V17.49) Status: Active Sister* Name Dates Details Family history of Thyroid Disorder (V18.19) Status: Active Brother* Name Dates Details Family history of Thyroid Disorder (V18.19) Status: Active Social History Name Dates Details History of tobacco use (V15.82, Z87.891) Tobacco use disorder (305.1, Z72.0) Smoking Status* Former smoker Vital Signs Date Test Result Details 15:43 BP Systolic 118 mm[Hg] Status: BP Diastolic 78 mm[Hg] Status: Weight 331 lb Status: Body Mass Index Calculated 42.5 kg/m2 Status: Body Surface Area Calculated 2.69 m2 Status: Results Date Description Value Details 10:30 PROTIME PANEL 7000 PROTIME 25.1 secs (Above high threshold) Range: 12.0-14.9 INR 2.27 (Better) Plan of Care Planned Observations* Name Dates Details Planned Goals not documented Goal Planned Encounters* Appointment; Provider: Billy Altamirano On 08:45 * Appointment; Provider: Kylee Waite On 13:30 * Appointment; Provider: Odin Florez On 19-Mar-2012 18:45 Instructions * Instructions not documented Encounters Appointment; Darrius Elkins Encounter Diagnosis: Problem not documented On 15:45 Appointment; Lady Sterling Encounter Diagnosis: Problem not [...]
--- OUTSIDE RECORDS SUMMARY | 2016-07-24 10:27 | XMS REPORT | Summary of Care ---
Author Author Darrius Elkins M.D. Unknown Address Unknown Phone Unavailable Care Team Providers Care National Flatbed Truck Driver Name Role Phone Mauro Altamirano M.D. [...] Quantity: 5 Refills: 0 Darrius Elkins M.D. R * Start 12-Dec-2015 Active Allergies and Adverse Reactions Name Dates Details No Known Drug Allergies (Allergy) Status: Active Past Medical History Name Dates Details History of acute bronchitis (V12.69, Z87.09) Status: Resolved History of Cellulitis of foot (682.7, L03.119) Status: Resolved History of contact dermatitis (V13.3, Z87.2) Status: Resolved Procedures Procedure Dates Details PROTIME PANEL 7000 Ordered: 12-Dec-2015 Immunization Name Dates Details Influenza on: 01-Jan-2013 Fluzone Quadrivalent 0.5 ML Intramuscular Suspension Lot #: [id number] on: 17-Dec-2013 Fluzone Quadrivalent 0.5 ML Intramuscular Suspension Lot #: [id number] on: 09-Dec-2014 Family History Name Dates Details [...] On 11-Apr-2016 08:00 Interventions Provided Medication Changes* PredniSONE 20 MG Oral Tablet - Start Labs/Procedures/Imaging* PROTIME PANEL 7000; To be Done: 12 Dec 2015 Instructions Name Dates Details Instructions not documented Encounters Appointment; Billy Altamirano M.D. Encounter Diagnosis: Problem [...]
--- OUTSIDE RECORDS SUMMARY | 2016-07-24 10:27 | XMS REPORT | Summary of Care ---
Author Author Darrius Elkins M.D. Organization Unknown Address [address] [place], [place] [id number] Phone Unavailable Care Team Providers Care Pediatric Associate Name Role Phone Kylee Waite DPM Unavailable [...] of both eyes (367.1, H52.13) Status: Active High risk medication use (V58.69, Z79.899) Status: Active Anticoagulant long-term use (V58.61, Z79.01) Status: Active Hyperlipidemia (272.4, E78.5) Status: Active Hypertension (401.9, I10) Status: Active Medications Name Dates Details Sulfamethoxazole-TMP DS 800-160 MG TABS Take 1 tablet twice daily Quantity: 28 Kylee Waite DPM* Started 04-Aug-2014 ActiveMiraLax Oral Powder MIX 17 GM IN 8 OUNCES OF LIQUID AND DRINK 1 TO 2 TIMES DAILY FOR CONSTIPATION. * Quantity: 2 Refills: 6 Darrius Elkins M.D.* Started 13-Jul-2011 ActiveMetoprolol Tartrate [...] Refills: 1 Darrius Elkins M.D.* Started 13-Jul-2011 ActiveAspirin 81 MG Oral Tablet Take 1 tablet daily * Refills: 0 Darrius Elkins M.D.* Started 13-Jul-2011 ActiveHalobetasol Propionate 0.05 % External Cream APPLY TO AFFECTED AREAS SPARINGLY TWICE DAILY * Quantity: 30 Refills: 0 Darrius Elkins M.D.* Started 10-Jun-2014 ActiveLisinopril 5 MG Oral Tablet Take 1 tablet daily * Quantity: 90 Refills: 3 Darrius Elkins M.D.* Started 11-Dec-2012 ActiveWarfarin Sodium 3 MG Oral Tablet TAKE 1 TABLET Daily as directed * Quantity: 90 Refills: 0 Darrius Elkins M.D.* Started ActiveWarfarin Sodium 5 MG Oral Tablet TAKE 1 TABLET Daily as directed * Quantity: 90 Refills: 3 Darrius Elkins M.D.* Started 31-Jul-2013 ActiveHalobetasol Propionate 0.05 % External Cream APPLY TO AFFECTED AREAS BEHIND EARS AND ON HANDS TWICE A DAY NEEDED * Quantity: 50 Refills: 2 Darrius Elkins M.D.* Started 14-Jul-2012 Active Allergies and Adverse Reactions Name Dates Details No Known Drug Allergies Status: Active Past Medical History Name Dates Details History of acute bronchitis (V12.69, Z87.09) Status: Resolved History of Cellulitis of foot (682.7, L03.119) Status: Resolved Procedures Procedure Dates Details PROTIME PANEL 7000 Ordered:09-May-2015 HEMOGLOBIN A1C 3507 Ordered:10-May-2015 Quant Microalbumin 1106 Ordered:10-May-2015 Immunization Name Dates Details Influenza Administered on:01-Jan-2013 Fluzone Quadrivalent 0.5 ML Intramuscular Suspension Lot #: [id number] Administered on:17-Dec-2013 Fluzone Quadrivalent 0.5 ML Intramuscular Suspension Lot #: [id number] Administered on:09-Dec-2014 Family History Mother* Name Dates [...] report Results Date Description Value Details 09-May-2015 10:21 Quant Microalbumin 1106 Comments: Fastin hours [...] 0.0-0.7 BASO 0.1 K/uL (Better) Range: 0.0-0.2 10:40 PROTIME PANEL 7000 Comments: Fastin hours PROTIME 27.6 secs (Above high threshold) Range: 12.0-14.9 INR 2.56 (Better) 10:59 Comprehensive Metabolic Panel 1212 Comments: Fastin hours SODIUM 139 mmol/L (Better) Range: 133-144 POTASSIUM 4.2 mmol/L (Better) Range: 3.5-5.1 CHLORIDE 100 mmol/L (Better) Range: 98-110 CARBON DIOXIDE 29.8 mmol/L (Better) Range: 23.0-33.0 ANION GAP 9 mmol/L (Better) Range: 6-16 BUN 16 mg/dL (Better) Range: 7-18 CREATININE, SERUM 1.00 mg/dL (Better) Range: 0.70-1.30 Comments: Please note new reference ranges effective 2014.----- BUN:CREATININE RATIO 16 (Better) EST GFR, >60 ml/min (Better) Range: >60 EST GFR, NON-AFR PARAGUAYAN >60 ml/min (Better) Range: >60 Comments: EST GFR is reported in ml/min per 1.73 m2 of body surface area. For -Gambian, please multiple result by 1.2.----- GLUCOSE 112 mg/dL (Above high threshold) Range: 70-100 ALK PHOSPHATASE 82 U/L (Better) Range: 46-116 TOTAL BILIRUBIN 0.50 mg/dL (Better) Range: 0.20-1.00 AST 23 U/L (Better) Range: 8-35 ALT 42 U/L (Better) Range: 16-63 Comments: Please note new reference ranges. Effective 05/20/2014.----- ALBUMIN 3.7 g/dL (Better) Range: 3.4-5.0 TOTAL PROTEIN 7.5 g/dL (Better) Range: 6.4-8.2 A/G RATIO 1.0 units (Better) Range: 1.0-1.8 CALCIUM 8.7 mg/dL (Better) Range: 8.5-10.1 10:59 LIPID PROFILE 1184 Comments: Fastin hours CHOLESTEROL 158 mg/dL (Better) Range: <200 TRIGLYCERIDES 307 mg/dL (Above high threshold) Range: 30-200 HDL Cholesterol 32 mg/dL (Below low threshold) Range: >39 NON HDL CHOLESTEROL 126 (Better) CARDIAC RSK FACTOR 4.9 units (Better) Range: 4.4-5.0 LDL - CALCULATED 65 mg/dL (Better) Range: 0-130 11:02 PSA ( PROSTATE SPECIFIC ANTIGEN) 3100 Comments: Items were attached to this order: TSH Fastin hours PROSTATE SPECIFIC ANTIGEN 3.860 ng/mL (Better) Range: 0.000-4.000 11:02 THYROID STIM. HORMONE 3602 Comments: Items were attached to this order: TSH Fastin hours THYROID STIM. HORMONE 2.278 uIU/mL (Better) Range: 0.550-4.780 Comments: No established reference ranges for infants and children <2 years of age----- 11:21 HEMOGLOBIN A1C 3507 Comments: Items were attached to this order: TSH Fastin hours Hemoglobin A1C 6.1 % (Better) ESTIMATED AVG. GLUCOSE 128 (Better) Plan of Care Planned Observations* Name [...]
--- OUTSIDE RECORDS SUMMARY | 2016-07-24 10:28 | XMS REPORT | Summary of Care ---
Author Author Darrius Elkins M.D. Organization Unknown Address [address] [place], [place] [id number] Phone Unavailable Care Team Providers Care Hand Filer Balance Wheel Name Role Phone Kirsty Elkins M.D. Unavailable [...] Quadrivalent 0.5 ML Intramuscular Suspension Lot #: [id number] Administered on:17-Dec-2013 Family History Mother* Name Dates [...] to report Results Date Description Value Details 15-Mar-2014 14:04 CBC w/ Auto Diff 7150 [...] ml/min (Better) Range: >60 EST GFR, NON-AFR N[place]AR[place]UAN >60 ml/min (Better) Range: >60 Comments: EST GFR is reported in ml/min per 1.73 m2 of body surface area. For -Burundian, please multiple result by 1.2.----- GLUCOSE 131 [...]
--- OUTSIDE RECORDS SUMMARY | 2016-07-24 10:28 | XMS REPORT | Summary of Care ---
Author Author Darrius Elkins M.D. Organization Unknown Address [address] [place], [place] [id number] Phone Unavailable Care Team Providers Care Automotive Brake Specialist Name Role Phone Kylee Waite DPM Unavailable [...] 81 MG TABS Take 1 tablet daily Darrisu Elkins M.D.* Started 13-Jul-2011 ActiveNitrostat 0.4 MG [...] directed * Quantity: 90 Refills: 0 Darrius Elknis M.D.* Started ActiveHalobetasol Propionate 0.05 % External Cream APPLY TO AFFECTED AREAS BEHIND EARS AND ON HANDS TWICE A DAY NEEDED * Quantity: 50 Refills: 2 Darirus Elkins M.D.* Started 14-Jul-2012 ActiveLisinopril 5 MG [...] Procedures Procedure Dates Details PROTIME PANEL 7000 Ordered:08-Jul-2015 Immunization Name Dates Details Influenza Administered on:01-Jan-2013 Fluzone Quadrivalent 0.5 ML Intramuscular Suspension Lot #: [id number] Administered on:17-Dec-2013 Fluzone Quadrivalent 0.5 ML Intramuscular Suspension Lot #: [id number] Administered on:09-Dec-2014 Family History Mother* Name Dates [...] not documented On 17-Dec-2013 15:50 Appointment; Darrius Elkisn Encounter Diagnosis: Problem not documented On 23-Nov-2013 10:30 Appointment; Darrius Elkins Encounter Diagnosis: Problem not documented On 11:00
--- OUTSIDE RECORDS SUMMARY | 2016-07-24 10:28 | XMS REPORT | Summary of Care ---
Author Author Peyman Morales M.D. Organization Unknown Address [address] [place] [address] [place] [address] Phone Unavailable Care Team Providers Care Home Health Speech Therapist Name Role Phone Peyman Morales M.D. Unavailable Unavailable Mauro Altamirano M.D. Unavailable Unavailable Kirsty Elkins M.D. Unavailable Unavailable Darrius Elkins Unavailable Unavailable Unavailable Unavailable Functional Status Name Dates Details Functional status health issues are not documented Status: Name Dates Details Cognitive status health issues are not documented Status: Problems Name Dates Details Cath RV False Aneurysm Status: Active Nausea (787.02, R11.0) Status: Active Pleural effusion (511.9, J90) Status: Active Psoriasis (696.1, L40.9) Status: Active Atopic dermatitis (691.8, L20.9) Status: Active Presbyopia (367.4, H52.4) Status: Active Intertrigo (695.89, L30.4) Status: Active Wounds, multiple open, lower extremity (894.0, S81.809A) Status: Active Blood in semen (608.82, R36.1) Status: Active Vertigo (780.4, R42) Status: Active Sebaceous hyperplasia (706.8, L73.8) Status: Active Hematuria (599.70, R31.9) Status: Active Low back pain (724.2, M54.5) Status: Active Lumbar nerve root compression (724.4, M54.16) Status: Active Acquired hallux rigidus, right (735.2, M20.21) Status: Active Peripheral vascular disease (443.9, I73.9) Status: Active Ulcer of foot (707.15, L97.509) Status: Active Chronic ulcer of right foot (707.15, 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: Active Acquired hallux rigidus, right (735.2, M20.21) Status: Active Limb pain (729.5, M79.609) Status: Active Difficulty in walking (719.7, R26.2) Status: Active 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, 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: Active Pre-op examination (V72.84, Z01.818) Status: Active 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, 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 Glaucoma suspect (365.00, H40.009) Status: Active Myopia of both eyes (367.1, H52.13) Status: Active High risk medication use (V58.69, Z79.899) Status: Active Former tobacco use (V15.82, Z87.891) Status: Active Rash (782.1, R21) Status: Active Plaque psoriasis (696.1, L40.0) Status: Active Nummular eczema (692.9, L30.0) Status: Active Tinea corporis (110.5, B35.4) Status: Active Seborrheic psoriasis (696.1, L40.8) Status: Active Contact dermatitis (692.9, L25.9) Status: Active Nocturia (788.43, R35.1) Status: Active Rectal pain (569.42, K62.89) Status: Active Perirectal abscess (566, K61.1) Status: Active COPD exacerbation (491.21, J44.1) Status: Active Tachycardia (785.0, R00.0) Status: Active Encounter for annual physical exam (V70.0, Z00.00) Status: Active Obesity (278.00, E66.9) Status: Active 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, E11.49) Status: Active Chest pain (786.50, R07.9) Status: Active Left sided chest pain (786.50, R07.9) Status: Active CAD (coronary artery disease) (414.00, I25.10) Status: Active Diabetic neuropathy (250.60, E11.40) Status: Active Painless hematuria (599.70, R31.9) Status: Active Elevated prostate specific antigen (PSA) (790.93, R97.20) Status: Active BPH (benign prostatic hypertrophy) (600.00, N40.0) Status: Active Hyperlipidemia (272.4, E78.5) Status: Active Hypertension (401.9, I10) Status: Active Past myocardial infarction (412, I25.2) Status: Active D-dimer, elevated (790.92, R79.89) Status: Active Gross hematuria (599.71, R31.0) Status: Active Bladder tumor (239.4, D49.4) Status: Active Anticoagulant long-term use (V58.61, Z79.01) Status: Active Medications Name Dates Details Aspirin 81 MG TABS Take 1 tablet daily Darrius Elkins M.D. Start 13-Jul-2011 Active Metoprolol [...] 3 Darrius Elkins M.D. Start 11-Dec-2012 Active Simvastatin 20 MG Oral Tablet TAKE 1 TABLET DAILY AT BEDTIME * Quantity: 90 Refills: 3 Darrius Elkins M.D. Start 13-Jul-2011 Active Nitrostat 0.4 MG Sublingual Tablet Sublingual DISSOLVE 1 TAB UNDER TONGUE NEEDED FOR CHEST PAIN EVERY 5 MINUTES F OR UP TO 3 DOSES. IF NO RELIEF CALL * Quantity: 30 Refills: 1 Darrius Elkins M.D. Start 13-Jul-2011 Active Xarelto 15 MG Oral Tablet * Refills: 0 * Start 04-Jul-2016 Active Ketoconazole 2 % External Shampoo APPLY TO SCALP AND MORROW EACH MORNING AND RINSE AFTER APPLICATION * Quantity: 1 Refills: 3 Billy Altamirano M.D. Start 06-Dec-2015 Active 100 ML Bottle Clobetasol Propionate 0.05 % External Cream APPLY SPARINGLY TO AFFECTED AREA(S) TWICE DAILY * Quantity: 1 Refills: 2 Billy Altamirano M.D. Start 06-Dec-2015 Active 60 GM Tube Allergies and Adverse Reactions Name Dates Details [...] History of Cholecystectomy History Of Prior Surgery Procedures not documented Immunization Name Dates Details Influenza on: 01-Jan-2013 Fluzone Quadrivalent 0.5 ML Intramuscular Suspension Lot #: [id number] on: 17-Dec-2013 Fluzone Quadrivalent 0.5 ML Intramuscular Suspension Lot #: [id number] on: 09-Dec-2014 Influenza Lot #: [id number] on: 13-Dec-2015 Family History Name Dates Details Family history of Osteoporosis (V17.81) Status: Active Name Dates Details Family history of Heart Disease (V17.49) Status: Active Name Dates Details Family history of Thyroid Disorder (V18.19) Status: Active Name Dates Details Family history of Thyroid Disorder (V18.19) Status: Active Social History Name Dates Details - Status: Name Dates Details Smoker. current status unknown Vital Signs Date Test Result Details 11-Jul-2016 14:15 BP Systolic 130 mm[Hg] Status: Comments: Location: ; Position: BP Diastolic 73 mm[Hg] Status: Comments: Location: ; Position: Heart Rate 84 /min Status: Comments: Location: ; Weight 324 lb Status: Body Mass Index Calculated 41.6 kg/m2 Status: Body Surface Area Calculated 2.67 m2 Status: 04-Jul-2016 13:54 BP Systolic 130 mm[Hg] Status: Comments: Location: ; Position: BP Diastolic 74 mm[Hg] Status: Comments: Location: ; Position: Temperature 97.2 f Status: Heart Rate 78 /min Status: Comments: Location: ; Height 74 in Status: Weight 324.5 lb Status: Physical Findings 95 Status: Comments: O2 Saturation Body Mass Index Calculated 41.66 kg/m2 Status: Body Surface Area Calculated 2.67 m2 Status: Results Date Description Value Details 04-Jul-2016 13:58 ECG/ EKG (Specialists) Electro CardioGram 14:49 CBC w/ Auto Diff 7150 Comments: Items were attached to this order: Extra Tube WBC 6.9 K/uL Range: 4.5-11.0 RBC 5.34 mil/uL Range: 4.20-5.40 HGB 16.7 g/dL Range: 14.0-18.0 HCT 49.4 % Range: 42.0-53.0 MCV 92.5 fL Range: 80.0-99.0 MCH 31.2 pg Range: 27.3-32.5 MCHC 33.7 % Range: 32.0-36.0 RDW 15.0 % (Above high threshold) Range: 11.6-14.8 PLATELETS 175 K/uL Range: 150-400 MPV 8.7 fL Range: 6.0-11.0 %NEUTRO 59.3 % Range: 37.0-80.0 %LYMPHS 24.2 % Range: 13.0-50.0 %MONO 7.8 % Range: 0.0-12.0 %EOS 5.4 % Range: 0.0-7.0 %BASO 0.7 % Range: 0.0-2.5 %ALEJANDRA 2.6 % Range: 0.0-5.0 NEUTRO 4.1 K/uL Range: 2.0-6.9 LYMPHS 1.7 K/uL Range: 0.6-3.4 MONOS 0.5 K/uL Range: 0.0-0.9 EOS 0.4 K/uL Range: 0.0-0.7 BASO 0.1 K/uL Range: 0.0-0.2 14:50 Urinalysis, Reflex to Microscopic or Culture PRN 8005 pH 6.5 Range: 5.0-7.5 SP GRAVITY 1.010 Range: 1.010-1.030 APPEARANCE CLEAR Range: Clear COLOR YELLOW Range: Straw-Yellow PROTEIN NEGATIVE mg/dL Range: Negative-Trace GLUCOSE NEGATIVE mg/dL Range: Negative KETONE NEGATIVE mg/dL Range: Negative BILIRUB NEGATIVE Range: Negative BLOOD TRACE (Abnormal) Range: Negative UROBIL 0.2 EU/dL Range: 0.2-1.0 NITRITE NEGATIVE Range: Negative LEUK NEGATIVE Range: Negative 14:55 D - dimer 7511 Comments: Items were attached to this order: Extra TubeResult called to Martha Bergeron by Jalyn Askew on 07/04/2016 at 3:00 PM ( DIMER) D-DIMER 0.79 ug/mL FEU (High alert) Range: 0.00-0.49 Comments: For patients with low clinical probability of VTE, D-Dimer results of < 0.50 ug/mL FEU and less have an excellent negative predictive value in excluding a diagnosis of acute PE or DVT. However, a thromboembolic event cannot be excluded when D-Dimer values are greater than 0.49 ug/mL FEU.----- 14:58 Urine Microscopic UMIC RBC 0-2 /HPF Range: 0-2 EPITH 0-2 /HPF Range: 0-10 15:15 Troponin I 3020 Comments: Items were attached to this order: Extra TubeResult called to Norma by Liv Gambino on 07/04/2016 at 3:19 PM Troponin I <0.017 ng/mL Range: .056 Comments: </=0.056 ng/ml=Negative>0.056 ng/ml=Elevated----- 15:15 Comprehensive Metabolic Panel 1212 Comments: Items were attached to this order: Extra Tube SODIUM 139 mmol/L Range: 133-144 POTASSIUM 4.0 mmol/L Range: 3.5-5.1 CHLORIDE 103 mmol/L Range: 98-110 CARBON DIOXIDE 31.2 mmol/L Range: 23.0-33.0 ANION GAP 5 mmol/L (Below low threshold) Range: 6-16 BUN 15 mg/dL Range: 7-18 CREATININE, SERUM 1.05 mg/dL Range: 0.70-1.30 BUN:CREATININE RATIO 14 EST GFR, >60 ml/min Range: >60 EST GFR, NON-AFR MONTENEGRIN >60 ml/min Range: >60 Comments: EST GFR is reported in ml/min per 1.73 m2 of body surface area. ----- GLUCOSE 95 mg/dL Range: 70-100 ALK PHOSPHATASE 89 U/L Range: 46-116 TOTAL BILIRUBIN 0.30 mg/dL Range: 0.20-1.00 AST 34 U/L Range: 8-35 ALT 29 U/L Range: 16-63 ALBUMIN 3.7 g/dL Range: 3.4-5.0 TOTAL PROTEIN 8.6 g/dL (Above high threshold) Range: 6.4-8.2 A/G RATIO 0.8 units (Below low threshold) Range: 1.0-1.8 CALCIUM 8.9 mg/dL Range: 8.5-10.1 16:23 CT CTA CHEST Comments: Exam Date: 07/04/2016 15:57Dictation Date: 16:23 XC CTA CHEST 11-Jul-2016 18:12 CYTOLOGY - URINE 4444 CYTOLOGY Specimen referred to [facility]. Report to follow. Plan of Care Name Dates Details Planned Observations Planned Goals not documented Instructions Name Dates Details Instructions not documented Encounters Appointment; Peyman Morales M.D. Encounter Diagnosis: Problem not documented On 11-Jul-2016 14:15 Appointment; León Harris D.O. Encounter Diagnosis: Problem not documented On 04-Jul-2016 13:30 Appointment; Darrius Elkins M.D. Encounter Diagnosis: Problem not documented On 01-May-2016 10:45 Appointment; Samuel Mccartney M.D. Encounter Diagnosis: Problem [...] Problem not documented On 08:45 Appointment; Pipo Aponet D.O. Encounter Diagnosis: Problem not documented On [...]
--- OUTSIDE RECORDS SUMMARY | 2016-07-24 10:28 | XMS REPORT | Summary of Care ---
Author Author Lady Cortes Organization Unknown Address [address] [place], [place] [id number] Phone Unavailable Care Team Providers Care Route Manager Name Role Phone BlayneKylee murrieta DPM [...] Active Tinea corporis (110.5, B35.4) Status: Active Plaque psoriasis (696.1, L40.0) Status: Active Nummular eczema (692.9, L30.0) Status: Active Medications Name Dates Details Aspirin [...] 1 Refills: 2 Lady Sterling* Started 10-Jun-2014 [id number] GM Tube Sulfamethoxazole-TMP DS 800-160 MG TABS [...] Quadrivalent 0.5 ML Intramuscular Suspension Lot #: [id number] Administered on:17-Dec-2013 Fluzone Quadrivalent 0.5 ML Intramuscular Suspension Lot #: [id number] Administered on:09-Dec-2014 Family History Mother* Name Dates [...]
--- OUTSIDE RECORDS SUMMARY | 2016-07-24 10:28 | XMS REPORT | Summary of Care ---
Author Author Darrius Elkins M.D. Organization Unknown Address [address] [place], [place] [id number] Phone Unavailable Care Team Providers Care Php Software Engineer Name Role Phone Kylee Waite DPM Unavailable [...] Quadrivalent 0.5 ML Intramuscular Suspension Lot #: [id number] Administered on:17-Dec-2013 Family History Mother* Name Dates [...]
--- OUTSIDE RECORDS SUMMARY | 2016-07-24 10:29 | XMS REPORT ---
Author Author FayPipo Organization Unknown Address [address], [place] [id number] Phone Care Team Providers Care Aerospace Products Sales Engineer Name Role Phone Brittni Rizo PP Unavailable Unavailable Reason for Referral No Reason for Referral was given. History of Present Illness No HPI available. Problems * Constipation (564.00); (Active) * Normal Routine History And Physical Adult (V70.0); (Active) * Obesity (278.00); (Active) * Contact Dermatitis (692.9); (Active) * Urinary Tract Infection (599.0); (Active) * Nausea (Symptom) (787.02); (Active) * Normal Examination (V70.0); (Active) * Serology Prostate-specific Antigen (PSA) Elevated (790.93); (Active) * Myopia Comments: -2.50+1.37n261-0.25+[id number] +2.75 (367.1); (Active ) * Presbyopia (367.4); (Active) * Open Wound Of The Left Leg (894.0); (Active) * Cath RV False Aneurysm (Active) * Blood In Semen (608.82); (Active) * Vertigo (780.4); (Active) * Atopic Dermatitis (691.8); (Active) * Acute Bronchitis (466.0); (Active) * Pleural Effusion (511.9); (Active) * Hypertension (401.9); (Active) * Prior Myocardial Infarction (412); (Active) * Taking High-risk Medication (V58.69); (Active) * Hyperlipidemia (272.4); (Active) Medication * Dulcolax Stool Softener 100 MG Oral Capsule; BID PRN; Start Date: 2011; End Date: (Active) * Aspirin 81 MG Oral Tablet; Take 1 tablet daily; Start Date: 07/13/2011 (Active ) * Simvastatin 20 MG Oral Tablet; TAKE 1 TABLET DAILY AT BEDTIME.; Start Date: (Active) * Metoprolol Tartrate 25 MG Oral Tablet; TAKE 1 TABLET BY MOUTH TWICE DAILY; Start Date: 07/13/2011 (Active) * MiraLax Oral Powder; MIX 17 GM IN 8 OUNCES OF LIQUID AND DRINK 1 TO 2 TIMES DAILY FOR CONSTIPATION.; Start Date: 07/13/2011 (Active) * Warfarin Sodium 3 MG Oral Tablet; TAKE 1 TABLET DAILY DIRECTED.; Start Date : 08/17/2011; End Date: (Active) * Coumadin 5 MG Oral Tablet; TAKE 1 TABLET DAILY DIRECTED.; Start Date: 08/16 (Active) * Nitrostat 0.4 MG Sublingual Tablet Sublingual; DISSOLVE 1 TAB UNDER TONGUE NEEDED FOR CHEST PAIN EVERY 5 MINUTES F OR UP TO 3 DOSES. IF NO RELIEF CALL DRErica ; Start Date: 07/13/2011; End Date: (Active) * Terbinafine HCl 250 MG Oral Tablet; ONE TABLET BY MOUTH DAILY; Start Date: ; End Date: (Active) * Halobetasol Propionate 0.05 % External Cream; APPLY AND GENTLY MASSAGE INTO AFFECTED AREA(S) TWICE DAILY.; Start Date: 02/12/2012; End Date: ( Active) * Digoxin 0.125 MG Oral Tablet; TAKE 1 TABLET DAILY.; Start Date: 04/28/2012 ( Active) * Cialis 20 MG Oral Tablet; TAKE 1 TABLET 1 HOUR BEFORE ACTIVITY NEEDED.; Start Date: 05/15/2012; End Date: (Active) Allergies and Adverse Reactions * No Known Drug Allergies (Active) Past Medical History * No Significant Medical History Family History * Maternal history of Osteoporosis (V17.81); (Active) * Paternal history of Heart Disease (V17.49); (Active) * Fraternal history of Thyroid Disorder (V18.19); (Active) * Sororal history of Thyroid Disorder (V18.19); (Active) Social History * Tobacco Use (V15.82); (Active) * Racial Background (___ %) (Active) * Current Smoker (305.1); (Active) * Current Smoker (305.1); (Active) Treatment Plan * Occult Blood Take Home Test 8211 10/02/2008 Routine * Urine Culture PRN 8000 10/02/2008 Routine * Urine Culture PRN 8000 03/06/2011 Routine * XRay CHEST-PA & LAT 09/17/2011 Routine * PROTIME PANEL 7000 04/17/2012 Routine * PROTIME PANEL 7000 05/26/2012 Routine * PROTIME PANEL 7000 06/19/2012 Routine * DIGOXIN 3002 06/19/2012 Routine * LIPID PROFILE 1184 11/19/2012 Routine * Comprehensive Metabolic Panel 1212 11/19/2012 Routine Advance Directives * No Advance Directives available. Encounters * Appointment 05/26/2012 * NEWPTSiobhan , Provider: Ingrid Mir, Status: [place] , Time: 2:00 PM 06/10 * NAIDA , Provider: Mac Mir, Status: [place] , Time: 4:00 PM 2012
--- OUTSIDE RECORDS SUMMARY | 2016-07-24 10:29 | XMS REPORT | Summary of Care ---
Author Author Darrius Elkins M.D. Organization Unknown Address [address] [place], [place] [id number] Phone Unavailable Care Team Providers Care Surtass Analyst Name Role Phone Kylee Waite DPM Unavailable Unavailable Kirsty Elkins M.D. Unavailable Unavailable Darrius lEkins PP Unavailable Unavailable Unavailable Functional Status Functional [...] Status: Active Hyperlipidemia (272.4, E78.5) Status: Active Medications Name Dates Details Aspirin [...] daily * Quantity: 28 Refills: 0 Kylee Wiate DPLane* Started 04-Aug-2014 Active Allergies and Adverse Reactions Name Dates Details No Known Drug Allergies Status: Active Past Medical History Name Dates Details History of acute bronchitis (V12.69, Z87.09) Status: Resolved History of Cellulitis of foot (682.7, L03.119) Status: Resolved Procedures Procedure Dates Details PROTIME PANEL 7000 Ordered: Immunization Name Dates Details Influenza Administered on:01-Jan-2013 Fluzone Quadrivalent 0.5 ML Intramuscular Suspension Lot #: [id number] Administered on:17-Dec-2013 Fluzone Quadrivalent 0.5 ML Intramuscular Suspension Lot #: [id number] Administered on:09-Dec-2014 Family History Mother* Name Dates [...] not documented Goal Planned Encounters* Appointment; Provider: Lady Sterling On 08:30 * Appointment; Provider: Kylee Waite On 13:30 [...]
--- OUTSIDE RECORDS SUMMARY | 2016-07-24 10:29 | XMS REPORT | Summary of Care ---
Author Author Darrius Elkins M.D. Organization Unknown Address [address] [place], [place] [id number] Phone Unavailable Care Team Providers Care Special Forces Medical Sergeant Name Role Phone Kylee Waite DPM Unavailable [...] Quadrivalent 0.5 ML Intramuscular Suspension Lot #: [id number] Administered on:17-Dec-2013 Fluzone Quadrivalent 0.5 ML Intramuscular Suspension Lot #: [id number] Administered on:09-Dec-2014 Family History Mother* Name Dates [...]
--- OUTSIDE RECORDS SUMMARY | 2016-07-24 10:29 | XMS REPORT | Summary of Care ---
Author Author Ravindra AMAYA, brettapproved Organization Unknown Address [address] [place], [place] [address] Phone Unavailable Care Team Providers Care Waffle Machine Operator Name Role Phone Kirsty Elkins M.D. Unavailable [...] diabetes mellitus, uncontrolled (250.02, E11.65) Status: Active Hypertension (401.9, I10) Status: Active Cellulitis of foot (682.7, L03.119) Status: Active Obesity (278.00, E66.9) Status: Active Contact dermatitis (692.9, L25.9) Status: Active Past myocardial infarction (412, I25.2) Status: Active Cellulitis of foot, right (682.7, L03.115) Status: Active 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, 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: Active Acquired hallux rigidus, right (735.2, M20.21) Status: Active Diabetic neuropathy (250.60, E11.40) Status: Active Peripheral vascular disease (443.9, I73.9) Status: Active Ulcer of foot (707.15, L97.509) Status: Active Chronic ulcer of right foot (707.15, 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: Active Medications Name Dates Details Aspirin [...] Procedures Procedure Dates Details PROTIME PANEL 7000 Ordered:22-Jun-2014 C REACTIVE PROTEIN, CRP 2030 Ordered:07-Jul-2014 ERYTHROCYTE SED RATE 7800 Ordered:07-Jul-2014 WOUND CULTURE 5034 Ordered:07-Jul-2014 XRay TOES-Right Ordered:10-Jun-2014 ULTRASOUND LEG ARTERIES-BILATERAL Ordered:07-Jul-2014 MRI FOOT RIGHT Ordered:07-Jul-2014 Immunization Name Dates Details Influenza Administered on:01-Jan-2013 Fluzone Quadrivalent 0.5 ML Intramuscular Suspension Lot #: [id number] Administered on:17-Dec-2013 Family History Mother* Name Dates [...] smoked Vital Signs Date Test Result Details 10-Jun-2014 10:08 BP Systolic 142 mm[Hg] Status: BP Diastolic 88 mm[Hg] Status: Temperature 97.2 f Status: Weight 338 lb Status: Body Mass Index Calculated 43.4 kg/m2 Status: Body Surface Area Calculated 2.72 m2 Status: Results Date Description Value Details 10-Jun-2014 10:41 XRay FOOT-Right Comments: Exam Date: 10: 23Dictation Date: 10:41 X FOOT COMP (MIN 3V) [facility] Radiologic ReportHAHOLLIE [id number] (X-RAY)PATIENT OF DR. ELKINS BD: 1955 SECONDARY 06/10/14 X FOOT COMP (MIN 3V) RT INDICATION : 682.7: CELLULITIS AND ABSCES (Better) 22-Jun-2014 10:34 PROTIME PANEL 7000 PROTIME 25.0 secs (Above high threshold) Range: 12.0-14.9 INR 2.32 (Better) 07-Jul-2014 14:49 CBC w/ Auto Diff 7150 WBC 6.8 K/uL (Better) Range: 4.5-11.0 RBC 5.08 mil/uL (Better) Range: 4.20-5.40 HGB 15.3 g/dL (Better) Range: 14.0-18.0 HCT 42.8 % (Better) Range: 42.0-53.0 MCV 84.2 fL (Better) Range: 80.0-99.0 MCH 30.1 pg (Better) Range: 27.3-32.5 MCHC 35.8 % (Better) Range: 32.0-36.0 RDW 14.2 % (Better) Range: 11.6-14.8 PLATELETS 161 K/uL (Better) Range: 150-400 MPV 9.1 fL (Better) Range: 6.0-11.0 %NEUTRO 46.9 % (Better) Range: 37.0-80.0 %LYMPHS 35.8 % (Better) Range: 13.0-50.0 %MONO 7.4 % (Better) Range: 0.0-12.0 %EOS 6.6 % (Better) Range: 0.0-7.0 %BASO 0.7 % (Better) Range: 0.0-2.5 %ALEJANDRA 2.6 % (Better) Range: 0.0-5.0 NEUTRO 3.2 K/uL (Better) Range: 2.0-6.9 LYMPHS 2.4 K/uL (Better) Range: 0.6-3.4 MONOS 0.5 K/uL [...]
--- OUTSIDE RECORDS SUMMARY | 2016-07-24 10:29 | XMS REPORT | Summary of Care ---
Author Author Darrius Elkins M.D. Organization Unknown Address Unknown Phone Unavailable Care Team Providers Care Metal Casting Trades Worker Name Role Phone Mauro Altamirano M.D. Unavailable [...] Active Contact dermatitis (692.9, L25.9) Status: Active BPH (benign prostatic hypertrophy) (600.00, N40.0) Status: Active Nocturia (788.43, R35.1) Status: Active Rectal pain (569.42, K62.89) Status: Active Hospital discharge follow-up (V67.59, Z09) Status: Active Perirectal abscess (566, K61.1) Status: Active History of tobacco use (V15.82, Z87.891) Status: Active Acute bronchitis, unspecified organism (466.0, J20.9) Status: Active COPD exacerbation (491.21, J44.1) Status: Active Tachycardia (785.0, R00.0) Status: Active Medications Name Dates Details Aspirin [...] 6 Darrius Elkins M.D. Start 13-Jul-2011 Active Clobetasol Propionate 0.05 % External Cream [...] * Refills: 0 * Start 06-Feb-2016 Active Lisinopril 5 MG Oral Tablet Take 1 tablet daily * Quantity: 90 Refills: 3 Darrius Elkins M.D. R * Start 11-Dec-2012 Active Allergies and Adverse Reactions Name [...] Quadrivalent 0.5 ML Intramuscular Suspension Lot #: [id number] on: 17-Dec-2013 Fluzone Quadrivalent 0.5 ML Intramuscular Suspension Lot #: [id number] on: 09-Dec-2014 Influenza Lot #: [id number] on: 13-Dec-2015 Family History Name Dates Details [...] smoker Vital Signs Date Test Result Details 18-Feb-2016 10:08 BP Systolic 134 mm[Hg] Status: Comments: Location: ; Position: BP Diastolic 84 mm[Hg] Status: Comments: Location: ; Position: Temperature 97.7 f Status: Heart Rate 122 /min Status: Physical Findings 18 Status: Comments: Respiration Weight 309 lb Status: Body Mass Index Calculated 39.67 kg/m2 Status: Body Surface Area Calculated 2.61 m2 Status: 10-Feb-2016 11:04 BP Systolic 110 mm[Hg] Status: Comments: Location: ; Position: BP Diastolic 70 mm[Hg] Status: Comments: Location: ; Position: Weight 315 lb Status: Body Mass Index Calculated 40.44 kg/m2 Status: Body Surface Area Calculated 2.64 m2 Status: Results Date Description Value Details 08-Mar-2016 12:27 Urinalysis, reflex to Micro and Culture ([facility]) 8013 Comments: ORDER IN BOOK UNDER FEBRUARYTesting performed by [address] [address] pH 6.0 Range: 5.0-7.5 SP GRAVITY 1.030 Range: 1.010-1.030 APPEARANCE Clear Range: Clear COLOR Yellow Range: Straw-Yellow PROTEIN Negative mg/dL Range: Negative-Trace GLUCOSE Negative mg/dL Range: Negative KETONES Negative mg/dL Range: Negative BILIRUBIN Negative Range: Negative BLOOD Negative Range: Negative UROBIL 0.2 EU/dL Range: 0.2-1.0 NITRITE Negative Range: Negative LEUKOCYTES Negative Range: Negative 14:07 CBC w/ Auto Diff 7150 Comments: ORDER IN BOOK UNDER FEBRUARY WBC 6.9 K/uL Range: 4.5-11.0 RBC 4.84 mil/uL Range: 4.20-5.40 HGB 14.8 g/dL Range: 14.0-18.0 HCT 43.1 % Range: 42.0-53.0 MCV 89.1 fL Range: 80.0-99.0 MCH 30.5 pg Range: 27.3-32.5 MCHC 34.3 % Range: 32.0-36.0 RDW 15.3 % (Above high threshold) Range: 11.6-14.8 PLATELETS 180 K/uL Range: 150-400 MPV 10.1 fL Range: 6.0-11.0 %NEUTRO 57.8 % Range: 37.0-80.0 %LYMPHS 25.2 % Range: 13.0-50.0 %MONO 7.4 % Range: 0.0-12.0 %EOS 6.3 % Range: 0.0-7.0 %BASO 0.8 % Range: 0.0-2.5 %ALEJANDRA 2.4 % Range: 0.0-5.0 NEUTRO 4.0 K/uL Range: 2.0-6.9 LYMPHS 1.7 K/uL Range: 0.6-3.4 MONOS 0.5 K/uL Range: 0.0-0.9 EOS 0.4 K/uL Range: 0.0-0.7 BASO 0.1 K/uL Range: 0.0-0.2 14:23 Comprehensive Metabolic Panel 1212 Comments: ORDER IN BOOK UNDER FEBRUARY SODIUM 138 mmol/L Range: 133-144 POTASSIUM 4.0 mmol/L Range: 3.5-5.1 CHLORIDE 102 mmol/L Range: 98-110 CARBON DIOXIDE 29.8 mmol/L Range: 23.0-33.0 ANION GAP 6 mmol/L Range: 6-16 BUN 12 mg/dL Range: 7-18 CREATININE, SERUM 1.03 mg/dL Range: 0.70-1.30 BUN:CREATININE RATIO 12 EST GFR, >60 ml/min Range: >60 EST GFR, NON-AFR SWISS >60 ml/min Range: >60 Comments: EST GFR is reported in ml/min per 1.73 m2 of body surface area. ----- GLUCOSE 133 mg/dL (Above high threshold) Range: 70-100 ALK PHOSPHATASE 80 U/L Range: 46-116 TOTAL BILIRUBIN 0.30 mg/dL Range: 0.20-1.00 AST 27 U/L Range: 8-35 ALT 30 U/L Range: 16-63 ALBUMIN 3.2 g/dL (Below low threshold) Range: 3.4-5.0 TOTAL PROTEIN 7.6 g/dL Range: 6.4-8.2 A/G RATIO 0.7 units (Below low threshold) Range: 1.0-1.8 CALCIUM 8.4 mg/dL (Below low threshold) Range: 8.5-10.1 Plan of Care Name Dates Details Planned [...] not documented On 04-Aug-2014 09:15 Appointment; Kylee Watie DPM Encounter Diagnosis: Problem not documented On 07-Jul-2014 13:30 Appointment; Darrius Elkins M.D. Encounter Diagnosis: Problem not documented On 10-Jun-2014 10:15 Appointment; Darrius Elkins M.D. Encounter Diagnosis: Problem not documented On 15-Apr-2014 10:15
--- OUTSIDE RECORDS SUMMARY | 2016-07-24 10:29 | XMS REPORT | Summary of Care ---
Author Author Darrius Elkins M.D. Organization Unknown Address [address] [place], [place] [address] Phone Unavailable Care Team Providers Care Quebracho Tanner Name Role Phone Kylee Waite DPM Unavailable [...] M.D.* Started 14-Jul-2012 ActiveSulfamethoxazole-TMP DS 800-160 MG TABS Take 1 tablet twice daily * Quantity: 28 Refills: 0 Kylee Waite DPM* Started 04-Aug-2014 ActiveLisinopril 5 MG Oral Tablet Take 1 tablet daily * Quantity: 90 Refills: 3 Darrius Elkins M.D.* Started 11-Dec-2012 ActiveWarfarin Sodium 5 MG Oral Tablet TAKE 1 TABLET Daily as directed * Quantity: 90 Refills: 0 Darrius Elkins M.D.* Started 31-Jul-2013 ActiveHalobetasol Propionate [...] Procedures Procedure Dates Details PROTIME PANEL 7000 Ordered:23-Nov-2014 Immunization Name Dates Details Influenza Administered on:01-Jan-2013 Fluzone Quadrivalent 0.5 ML Intramuscular Suspension Lot #: [id number] Administered on:17-Dec-2013 Fluzone Quadrivalent 0.5 ML Intramuscular Suspension Lot #: [id number] Administered on:09-Dec-2014 Family History Mother* Name Dates [...]
--- OUTSIDE RECORDS SUMMARY | 2016-07-24 10:29 | XMS REPORT | Referral Summary ---
Author Author [facility] Organization [facility] Address Unknown Phone Unavailable Care Team Providers Care Mail Caller Name Role Phone Kirsty Elkins Primary Care Physician [phone] Encounter [facility] [id number] Date(s): 02/02/16 - 02/02/16 [facility] [address] [place], [place] [address] Discharge Diagnosis: Sepsis with unknown origin Discharge Diagnosis: Nausea and vomiting Discharge Diagnosis: Left against medical advice Discharge Diagnosis: Abdominal pain Discharge Disposition: 01-Home or Self Care Attending Physician: Rosey Phelps MD Vital Signs Most recent to 1 oldest [Reference Range]: Temperature Oral 36.5 degC [35.8-37.3 degC] (02/02/16 7:40 PM) Peripheral Pulse 139 bpm Rate [60-100 bpm] *HI* (02/02/16 3:52 PM) Heart Rate Monitored 100 bpm [60-100 bpm] (02/02/16 7:40 PM) Respiratory Rate 16 br/min [14-20 br/min] (02/02/16 7:40 PM) Blood Pressure 109/79 mmHg [90-140/60-90 mmHg] (02/02/16 7:40 PM) Mean Arterial 85 mmHg Pressure, Cuff (02/02/16 7:40 PM) SpO2 95 % (02/02/16 7:40 PM) Problem List No data available for this section Allergies, Adverse Reactions, Alerts No Known Medication Allergies Medications Colace 100 mg oral capsule 100 mg 1 caps, Oral, BID, as needed for constipation, with plenty of water SHAISTA/ david Wright MD., # 20 caps, 0 Refill(s) Start Date: 02/02/16 Status: Ordered MiraLax oral powder for reconstitution 17 g, Oral, Daily, dissolve in water before taking SHAISTA/david Wright MD., # 255 g, 0 Refill(s) Start Date: 02/02/16 Stop Date: 02/06/16 Status: Ordered Zofran 4 mg oral tablet 4 mg 1 tabs, Oral, q4hr, Nausea or Vomiting | as needed for nausea/vomiting, SUP /david Wright MD., # 10 tabs, 0 Refill(s) Start Date: 02/02/16 Stop Date: 02/06/16 Status: Ordered Results Hematology Most recent to 1 oldest [Reference Range]: WBC [4.8-10.8 7.2 10*3/uL 10*3/uL] (02/02/16 5:04 PM) RBC [4.60-6.20] 5.33 (02/02/16 5:04 PM) Hgb [14.0-18.0 16.3 gm/dL gm/dL] (02/02/16 5:04 PM) Hct [42.0-52.0 %] 48.0 % (02/02/16 5:04 PM) MCV [82.0-99.0 fL] 90.1 fL (02/02/16 5:04 PM) MCH [27.0-32.0 pg] 30.6 pg (02/02/16 5:04 PM) MCHC [32.0-36.0 34.0 gm/dL gm/dL] (02/02/16 5:04 PM) RDW [11.5-14.5 %] 13.4 % (02/02/16 5:04 PM) Platelet [150-400 151 10*3/uL 10*3/uL] (02/02/16 5:04 PM) MPV [9.4-12.3 fL] 12.2 fL (02/02/16 5:04 PM) Immature 0.1 % Granulocytes (02/02/16 5:04 PM) [0.0-1.0 %] Neutrophils [51-75 81 % %] *HI* (02/02/16 5:04 PM) Lymphocytes [20-46 8 % %] *LOW* (02/02/16 5:04 PM) Monocytes [4-11 %] 11 % (02/02/16 5:04 PM) Eosinophils [0-4 %] 0 % (02/02/16 5:04 PM) Basophils [0-2 %] 0 % (02/02/16 5:04 PM) Neutro Absolute 5.81 10*3 [1.90-7.00 10*3] (02/02/16 5:04 PM) Lymph Absolute 0.57 10*3 [0.80-3.30 10*3] *LOW* (02/02/16 5:04 PM) Obion Absolute 0.79 10*3 [0.30-1.00 10*3] (02/02/16 5:04 PM) Eos Absolute 0.01 10*3 [0.00-0.50 10*3] (02/02/16 5:04 PM) Baso Absolute 0.02 10*3 [0.00-0.20 10*3] (02/02/16 5:04 PM) Coagulation Most recent to 1 oldest [Reference Range]: INR [0.9-1.2] 1.3 *HI* (02/02/16 5:04 PM) PTT [25.0-35.0 36.5 seconds seconds] *HI* (02/02/16 5:04 PM) Chemistry Most recent to 1 oldest [Reference Range]: Sodium Lvl [136-144 132 mEq/L mEq/L] *LOW* (02/02/16 5:04 PM) Potassium Lvl 4.2 mEq/L [3.6-5.1 mEq/L] (02/02/16 5:04 PM) Chloride [99-109 95 mEq/L mEq/L] *LOW* (02/02/16 5:04 PM) CO2 [22-32 mEq/L] 26 mEq/L (02/02/16 5:04 PM) AGAP [3-20] 11 (02/02/16 5:04 PM) BUN [4-20 mg/dL] 12 mg/dL (02/02/16 5:04 PM) Glucose Lvl [70-100 133 mg/dL mg/dL] *HI* (02/02/16 5:04 PM) Creatinine Lvl 1.12 mg/dL [0.64-1.27 mg/dL] (02/02/16 5:04 PM) eGFR [>60] >60 1 (02/02/16 5:04 PM) Calcium Lvl 8.9 mg/dL [8.6-10.0 mg/dL] (02/02/16 5:04 PM) Albumin Lvl [3.5-4.8 3.6 gm/dL gm/dL] (02/02/16 5:04 PM) Total Protein 7.6 gm/dL [6.1-7.9 gm/dL] (02/02/16 5:04 PM) Globulin [1.9-4.3 4.0 gm/dL gm/dL] (02/02/16 5:04 PM) ALT [17-63 U/L] 30 U/L (02/02/16 5:04 PM) AST [15-41 U/L] 27 U/L (02/02/16 5:04 PM) Alk Phos [26-104 69 U/L U/L] (02/02/16 5:04 PM) Bili Total [0.2-1.2 1.3 mg/dL 2 mg/dL] *HI* (02/02/16 5:04 PM) Troponin [<0.06 <0.05 ng/mL ng/mL] (02/02/16 5:04 PM) Lipase Lvl [8-48 19 U/L U/L] (02/02/16 5:04 PM) Lactic Acid Lvl 1.4 mEq/L [0.5-2.2 mEq/L] (02/02/16 5:04 PM) 1Result Comment: Multiply eGFR results by 1.21 for race. 2Result Comment: Naproxen, specifically the metabolite O-desmethylnaproxen, may cause spurious elevation in Total Bilirubin levels. Immunizations No data available for this section Procedures No data available for this section Social History Social History Type Response Smoking Status Current some day smoker Assessment and Plan No data available for this section"
--- OUTSIDE RECORDS SUMMARY | 2016-07-24 10:30 | XMS REPORT | Summary of Care ---
Author Author Darrius Elkins M.D. Organization Unknown Address [address] [place], [place] [address] Phone Unavailable Care Team Providers Care Traveling Freight Agent Name Role Phone Kirsty Elkins M.D. Unavailable [...] Quadrivalent 0.5 ML Intramuscular Suspension Lot #: [id number] Administered on:17-Dec-2013 Family History Mother* Name Dates [...]
--- OUTSIDE RECORDS SUMMARY | 2016-07-24 10:30 | XMS REPORT | Summary of Care ---
Author Author Andrew Mcfarland, Peyman Jacinto Unknown Address [address] [place] [address] [place] [address] Phone Unavailable Care Team Providers Care Manufacturing Quality Inspector Name Role Phone Evelia Mcfarland, Mauro Unavailable Unavailable Kirsty Elkins M.D. Unavailable Unavailable [...] Active Chest pain (786.50, R07.9) Status: Active CAD (coronary artery disease) (414.00, I25.10) Status: Active Diabetic neuropathy (250.60, E11.40) Status: Active Elevated prostate specific antigen (PSA) (790.93, R97.20) Status: Active BPH (benign prostatic hypertrophy) (600.00, N40.0) Status: Active Hyperlipidemia (272.4, E78.5) Status: Active Hypertension (401.9, I10) Status: Active Past myocardial infarction (412, I25.2) Status: Active Left sided chest pain (786.50, R07.9) Status: Active Painless hematuria (599.70, R31.9) Status: Active D-dimer, elevated (790.92, R79.89) Status: Active Gross hematuria (599.71, R31.0) Status: Active Anticoagulant long-term use (V58.61, Z79.01) Status: Active Medications Name Dates Details Aspirin 81 MG TABS Take 1 tablet daily Darrius Elkins M.D. Start 13-Jul-2011 Active MiraLax Oral Powder MIX 17 GM IN 8 OUNCES OF LIQUID AND DRINK 1 TO 2 TIMES DAILY FOR CONSTIPATION. * Quantity: 2 Refills: 6 Darrius Elkins M.D. Start 13-Jul-2011 Active Nitrostat 0.4 MG Sublingual Tablet Sublingual DISSOLVE 1 TAB UNDER TONGUE NEEDED FOR CHEST PAIN EVERY 5 MINUTES F OR UP TO 3 DOSES. IF NO RELIEF CALL DRErica * Quantity: 30 Refills: 1 Darrius Elkins M.D. Start 13-Jul-2011 Active Metoprolol Tartrate 50 MG Oral Tablet Take 1 tablet twice a day * Quantity: 180 Refills: 1 Darrius Elkins M.D. Start 13-Jul-2011 Active Simvastatin 20 MG Oral Tablet TAKE 1 TABLET DAILY AT BEDTIME * Quantity: 90 Refills: 3 Darrius Elkins M.D. Start 13-Jul-2011 Active Lisinopril [...] M.D. Start 06-Dec-2015 Active 100 ML Bottle Xarelto 15 MG Oral Tablet * Refills: 0 * Start 04-Jul-2016 Active Allergies and Adverse Reactions Name Dates [...] Quadrivalent 0.5 ML Intramuscular Suspension Lot #: [id number] on: 17-Dec-2013 Fluzone Quadrivalent 0.5 ML Intramuscular Suspension Lot #: [id number] on: 09-Dec-2014 Influenza Lot #: [id number] on: 13-Dec-2015 Family History Name Dates Details [...] >60 ml/min Range: >60 EST GFR, NON-AFR MACEDONIAN >60 ml/min Range: >60 Comments: EST GFR [...] - URINE 4444 CYTOLOGY Specimen referred to [facility]. Report to follow. Plan of Care Name Dates Details Planned Observations Planned Goals not documented Planned Encounters Appointment; Provider: Peyman Morales M.D. On 18-Jul-2016 08:30 Instructions Name Dates Details Instructions not documented [...]
--- OUTSIDE RECORDS SUMMARY | 2016-07-24 10:30 | XMS REPORT | Summary of Care ---
Author Author Lady Cortes Organization Unknown Address [address] [place], [place] [id number] Phone Unavailable Care Team Providers Care Automobile Wrecker Name Role Phone BlayneKylee murrieta DPM Unavailable [...] TABLET DAILY. * Quantity: 7 Refills: 0 Lady Sterling* Started Active Allergies and Adverse Reactions Name Dates Details No Known Drug Allergies Status: Active Past Medical History Name Dates Details History of acute bronchitis (V12.69, Z87.09) Status: Resolved History of Cellulitis of foot (682.7, L03.119) Status: Resolved Procedures Procedure Dates Details PROTIME PANEL 7000 Ordered: Immunization Name Dates Details Influenza Administered on:01-Jan-2013 Fluzone Quadrivalent 0.5 ML Intramuscular Suspension Lot #: [id number] Administered on:17-Dec-2013 Fluzone Quadrivalent 0.5 ML Intramuscular Suspension Lot #: [id number] Administered on:09-Dec-2014 Family History Mother* Name Dates [...]
--- OUTSIDE RECORDS SUMMARY | 2016-07-24 10:30 | XMS REPORT ---
Author Peyman Chaudhry Organization [employer] Address Unknown Phone Unavailable Care Team Providers Care Nonprofit Manager Name Role Phone Peyman King CP Unavailable Allergies, Adverse Reactions, Alerts Substance Reaction Event Type N.K.D.A. Info Not Available Non Drug Allergy Problems Problem Type Condition ICD-9 Code Onset Dates Condition Status Assessment Fatty liver 571.8 Active Problem Constipation 564.00 Active Problem RUQ pain 789.01 Active Problem Symptoms consistent with irritable bowel syndrome 564.1 Active Assessment RUQ pain 789.01 Active Assessment Constipation 564.00 Active Problem Fatty liver 571.8 Active Assessment Symptoms consistent with irritable bowel syndrome 564.1 Active Medications Medication Code System Code Instructions Start Date End Date Status Dosage Coumadin [facility] [address]-07 8mg Orally Once a day [address] [facility] [address]-97 5 MG Orally Once a day [address] [facility] [address]-59 not defined MiraLax [facility] [address]-32 not defined Metoprolol Tartrate [facility] [address]-87 50 MG Orally daily [address] [facility] [address] 81 MG Orally Once a day 1 tablet Procedures Procedure Coding System Code Date Office Visit, Est Pt., Level 3 CPT-4 90062 Oct 19, 2014 Vital Signs Date/Time: Oct 19, 2014 Blood Pressure Systolic 126 mm Hg Weight 331 lbs Height 74 in BMI 42.49 Index Respiratory Rate 20 /min Cardiac Monitoring Heart Rate 84 /min Blood Pressure Diastolic 72 mm Hg Results No Known Results Summary Purpose [employer] Submission
--- OUTSIDE RECORDS SUMMARY | 2016-07-24 10:30 | XMS REPORT | Summary of Care ---
Author Author Pascual MICHAEL, Mariela Organization Unknown Address [address] [place], [place] [id number] Phone Unavailable Care Team Providers Care Digital Camera Technician Name Role Phone Andrew Mcfarland, Peyman Unavailable Unavailable Evelia Mcfarland, Mauro Unavailable Unavailable Brittni Mcfarland, Kirsty Unavailable Unavailable [...] History of Cholecystectomy History Of Prior Surgery CYTOLOGY - URINE 4444 Ordered: 11-Jul-2016 Immunization Name Dates Details Influenza on: 01-Jan-2013 Fluzone Quadrivalent 0.5 ML Intramuscular Suspension Lot #: [id number] on: 17-Dec-2013 Fluzone Quadrivalent 0.5 ML Intramuscular Suspension Lot #: [id number] on: 09-Dec-2014 Influenza Lot #: [id number] on: 13-Dec-2015 Family History Name Dates Details [...] >60 ml/min Range: >60 EST GFR, NON-AFR BRITISH >60 ml/min Range: >60 Comments: EST GFR [...] 07/04/2016 15:57Dictation Date: 16:23 XC CTA CHEST Plan of Care Name Dates Details Planned Observations Planned Goals not documented Planned Encounters Appointment; Provider: Peyman Morales M.D. On 18-Jul-2016 08:30 Interventions Provided Labs/Procedures/Imaging* CYTOLOGY - URINE 4444; To be Done: 11 Jul 2016 Instructions Name Dates Details Instructions not documented Encounters Appointment; León Harris D.O. Encounter Diagnosis: Problem [...]
--- OUTSIDE RECORDS SUMMARY | 2016-07-24 10:31 | XMS REPORT | Summary of Care ---
Author Author Darrius Elkins M.D. Organization Unknown Address [address] [place], [place] [address] Phone Unavailable Care Team Providers Care Forge Hand Name Role Phone Kirsty Elkins M.D. Unavailable [...] Refills: 0 Darrius Elkins M.D.* Started 12-Oct-2013 ActiveNitrostat 0.4 MG Sublingual Tablet Sublingual DISSOLVE 1 TAB UNDER TONGUE NEEDED FOR CHEST PAIN EVERY 5 MINUTES F OR UP TO 3 DOSES. IF NO RELIEF CALL DR. * Quantity: 30 Refills: 1 Darrius Elkins M.D.* Started 13-Jul-2011 ActiveLinzess 145 MCG Oral Capsule TAKE 1 CAPSULE Every morning * Refills: 0 Darrius Elkins M.D.* Started 24-Dec-2013 ActivePredniSONE 10 MG Oral Tablet 30mg qd x 3 days. 20mg qd x 3 days. 10mg qd x 3 days * Quantity: 18 Refills: 0 Darrius Elkins M.D.* Started 10-Apr-2013 Active Allergies and Adverse Reactions Name Dates Details No Known Drug Allergies Status: Active Past Medical History Name Dates Details History of acute bronchitis (V12.69, Z87.09) Status: Resolved Procedures Procedure Dates Details PROTIME PANEL 7000 Ordered:06-Apr-2014 Immunization Name Dates Details Influenza Administered on:01-Jan-2013 Fluzone Quadrivalent 0.5 ML Intramuscular Suspension Lot #: [id number] Administered on:17-Dec-2013 Family History Mother* Name Dates [...] ml/min (Better) Range: >60 EST GFR, NON-AFR BELARUSIAN >60 ml/min (Better) Range: >60 Comments: EST GFR is reported in ml/min per 1.73 m2 of body surface area. For -Djiboutian, please multiple result by 1.2.----- GLUCOSE 131 [...]
--- OUTSIDE RECORDS SUMMARY | 2016-07-24 10:31 | XMS REPORT | Summary of Care ---
Author Author Darrius Elkins M.D. Organization Unknown Address [address] [place], [place] [address] Phone Unavailable Care Team Providers Care Clinical Research Monitor Name Role Phone Kylee Waite DPM Unavailable Unavailable Kirsty Elkins M.D. Unavailable Unavailable Darrius Elkins PP Unavailable Unavailable Unavailable Functional Status Functional Status Health Issues* Name Dates Details Functional status health issues are not documented Status: Cognitive Status Health Issues* Name Dates Details Cognitive status health issues are not documented Status: Problems Name Dates Details Urinary tract infection (599.0, N39.0) Status: Active Pleural effusion (511.9, J90) Status: Active Psoriasis (696.1, L40.9) Status: Active Atopic dermatitis (691.8, L20.9) Status: Active Blood in semen (608.82, R36.1) Status: Active History of tobacco use (V15.82, Z87.891) Status: Active Sebaceous hyperplasia (706.8, L73.8) Status: [...] Bacterial skin infection (686.9, L08.9) Status: Active Pre-op examination (V72.84, Z01.818) Status: [...] risk medication use (V58.69, Z79.899) Status: Active Encounter for general health examination (V70.0, Z00.00) Status: Active Lumbar nerve root compression (724.4, M54.16) Status: Active Vertigo (780.4, R42) Status: Active Rash (782.1, R21) Status: Active Elevated prostate specific antigen (PSA) (790.93, R97.2) Status: Active Wounds, multiple open, lower extremity (894.0, S81.809A) Status: Active Intertrigo (695.89, L30.4) Status: Active Presbyopia (367.4, H52.4) Status: Active Tobacco use disorder (305.1, Z72.0) Status: Active Nausea (787.02, R11.0) Status: Active 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, 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: Active Difficulty in walking (719.7, R26.2) Status: Active Limb pain (729.5, M79.609) Status: Active Acquired hallux rigidus, right (735.2, M20.21) Status: Active Medications Name Dates Details Aspirin [...] Quadrivalent 0.5 ML Intramuscular Suspension Lot #: [id number] Administered on:17-Dec-2013 Fluzone Quadrivalent 0.5 ML Intramuscular Suspension Lot #: [id number] Administered on:09-Dec-2014 Family History Mother* Name Dates [...] Tobacco use disorder (305.1, Z72.0) Smoking Status* Unknown if ever smoked Vital Signs Date Test Result Details No Known Vitals to report Results Date Description Value Details 08-Jul-2015 12:22 PROTIME PANEL 7000 PROTIME 23.6 secs (Above high threshold) Range: 12.0-14.9 INR 2.10 (Better) Plan of Care Planned Observations* Name [...]
--- OUTSIDE RECORDS SUMMARY | 2016-07-24 10:31 | XMS REPORT | Summary of Care ---
Author Author Darrius Elkins M.D. Organization Unknown Address [address] [place], [place] [id number] Phone Unavailable Care Team Providers Care Blood Bank Technician Name Role Phone Brittni Mcfarland, Kirsty Unavailable Unavailable Darrius Elkins PP Unavailable Unavailable Unavailable Functional Status Functional Status Health Issues* Name Dates Details Functional status health issues are not documented Status: Cognitive Status Health Issues* Name Dates Details Cognitive status health issues are not documented Status: Problems Name Dates Details Myopia (367.1, H52.10) Status: Active Presbyopia (367.4, H52.4) Status: Active Low back pain (724.2, M54.5) Status: Active Hematuria (599.70, R31.9) Status: Active Blood in semen (608.82, R36.1) Status: Active Elevated prostate specific antigen (PSA) (790.93, R97.2) Status: Active History of tobacco use (V15.82, Z87.891) Status: Active Atopic dermatitis (691.8, L20.9) Status: Active Rash (782.1, R21) Status: Active Hyperlipidemia (272.4, E78.5) Status: Active Type 2 diabetes mellitus, uncontrolled (250.02, E11.65) Status: Active Pleural effusion (511.9, J90) Status: Active Psoriasis (696.1, L40.9) Status: Active Tobacco use disorder (305.1, Z72.0) Status: Active Vertigo (780.4, R42) Status: Active Encounter for general health examination (V70.0, Z00.00) Status: Active Acute bronchitis (466.0, J20.9) Status: Active Intertrigo (695.89, L30.4) Status: Active Wounds, multiple open, lower extremity (894.0, S81.809A) Status: Active 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, 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 Hypertension (401.9, I10) Status: Active Nausea (787.02, R11.0) Status: Active Constipation (564.00, K59.00) Status: Active Past myocardial infarction (412, I25.2) Status: Active Obesity (278.00, E66.9) Status: Active Cath RV False Aneurysm Status: Active Lumbar nerve root compression (724.4, M54.16) Status: Active High risk medication use (V58.69, Z79.899) Status: Active Sebaceous hyperplasia (706.8, L73.8) Status: Active Urinary tract infection (599.0, N39.0) Status: Active Glaucoma suspect (365.00, H40.009) Status: Active Cellulitis of foot (682.7, L03.119) Status: Active Contact dermatitis (692.9, L25.9) Status: Active Encounter for annual physical exam [...] 0 Darrius Elkins M.D.* Started 15-Apr-2014 Ended 20-Jun-2014 ActiveHalobetasol Propionate 0.05 % External Cream APPLY TO AFFECTED AREAS SPARINGLY TWICE DAILY * Quantity: 30 Refills: 0 Darrius Elkins M.D.* Started 10-Jun-2014 ActiveFexofenadine HCl - 180 MG Oral Tablet 1 tablet qd * Quantity: 30 Refills: 0 Darrius Elkins M.D.* Started 10-Jun-2014 Active Allergies and Adverse Reactions Name Dates Details No Known Drug Allergies Status: Active Past Medical History Name Dates Details History of acute bronchitis (V12.69, Z87.09) Status: Resolved History of Cellulitis of foot (682.7, L03.119) Status: Resolved Procedures Procedure Dates Details HEMOGLOBIN A1C 3507 Ordered:07-May-2014 PROTIME PANEL 7000 Ordered:07-Jun-2014 XRay TOES-Right Ordered:10-Jun-2014 Immunization Name Dates Details Influenza Administered on:01-Jan-2013 Fluzone Quadrivalent 0.5 ML Intramuscular Suspension Lot #: [id number] Administered on:17-Dec-2013 Family History Mother* Name Dates [...] m2 Status: Results Date Description Value Details 14-May-2014 14:14 Quant Microalbumin 1106 MICROALBUMIN, URINE 4.3 mg/L (Better) Range: <20.1 05-Jun-2014 10:36 PROTIME PANEL 7000 PROTIME 14.9 secs (Better) Range: 12.0-14.9 INR 1.18 (Better) 10-Jun-2014 10:41 XRay FOOT-Right Comments: Exam Date: 10: 23Dictation Date: 10:41 X FOOT COMP (MIN 3V) RT (Better) [...]
--- OUTSIDE RECORDS SUMMARY | 2016-07-24 10:31 | XMS REPORT | Summary of Care ---
Author Author Samuel Mccartney M.D. Organization Unknown Address Unknown Phone Unavailable Care Team Providers Care Chemistry Quality Control Technician Name Role Phone Evelia Mcfarland, Mauro Unavailable Unavailable Brittni Mcfarland, Kirsty Unavailable Unavailable Varun Mccartney M.D. Unavailable Unavailable Darrius Elkins Unavailable Unavailable [...] TWICE DAILY * Quantity: 1 Refills: 2 Evelia McfarlandBilly S * Start 06-Dec-2015 Active 60 GM Tube Ketoconazole 2 % External Shampoo APPLY TO SCALP AND MORROW EACH MORNING AND RINSE AFTER APPLICATION * Quantity: 1 Refills: 3 Evelia McfarlandBilly S * Start 06-Dec-2015 Active 100 ML Bottle PredniSONE 20 MG Oral Tablet I po qd * Quantity: 5 Refills: 0 Darrius Elkins M.D. R * Start 12-Dec-2015 Active Montelukast Sodium [...] Quadrivalent 0.5 ML Intramuscular Suspension Lot #: [id number] on: 17-Dec-2013 Fluzone Quadrivalent 0.5 ML Intramuscular Suspension Lot #: [id number] on: 09-Dec-2014 Influenza Lot #: [id number] on: 13-Dec-2015 Family History Name Dates Details [...] Location: ; Position: Temperature 97.7 f Status: Comments: Method: Heart Rate 122 /min Status: Comments: Location: ; Physical Findings 18 Status: Comments: Respiration Weight [...] ; Position: Heart Rate 87 /min Status: Physical Findings 16 Status: Comments: Respiration Height 74 in Status: 06-Feb-2016 10:06 BP Systolic 144 mm[Hg] Status: Comments: Location: ; Position: BP Diastolic 80 mm[Hg] Status: Comments: Location: ; Position: Temperature 97.5 f Status: Comments: Method: Heart Rate 89 /min Status: Comments: Location: ; Physical Findings 95 Status: Comments: O2 Saturation Results Date Description Value Details 06-Feb-2016 10:49 ULTRASOUND BLADDER Comments: Exam Date: 02/06/2016 10: 28Dictation Date: 02/06/2016 10:49 XS BLADDER Plan of Care Name Dates Details Planned Observations Planned Goals not documented Planned Encounters Appointment; Provider: Billy Altamirano M.D. On 11-Apr-2016 08:00 Instructions Name Dates Details Instructions not documented Encounters Appointment; Darrius Elkins M.D. Encounter Diagnosis: Problem [...]
--- OUTSIDE RECORDS SUMMARY | 2016-07-24 10:31 | XMS REPORT | Summary of Care ---
Author Author Provider, Outside Organization Unknown Address Unknown Phone Unavailable Care Team Providers Care Prom Burn Off Operator Name Role Phone Ravindra YANKylee Sherman Unavailable Unavailable Kirsty Elkins M.D. Unavailable Unavailable [...] Former tobacco use (V15.82, Z87.891) Status: Active Medications Name Dates Details Aspirin [...] L03.119) Status: Resolved Procedures Procedure Dates Details Procedures not documented Immunization Name Dates Details Influenza Administered on:01-Jan-2013 Fluzone Quadrivalent 0.5 ML Intramuscular Suspension Lot #: [id number] Administered on:17-Dec-2013 Fluzone Quadrivalent 0.5 ML Intramuscular Suspension Lot #: [id number] Administered on:09-Dec-2014 Family History Mother* Name Dates [...]
--- OUTSIDE RECORDS SUMMARY | 2016-07-24 10:32 | XMS REPORT | Summary of Care ---
Author Author Darrius Elkins M.D. Organization Unknown Address Unknown Phone Unavailable Care Team Providers Care Employment Law Attorney Name Role Phone Kylee Waite DPM Unavailable Unavailable Asher P.A.Lady Unavailable Unavailable Brittni Mcfarland, Kirsty Unavailable Unavailable [...] Refills: 3 Darrius Elkins M.D.* Started 13-Jul-2011 ActiveMiraLax Oral [...] Refills: 2 Darrius Elkins M.D.* Started 14-Jul-2012 ActiveHalobetasol Propionate 0.05 % External Cream APPLY TO AFFECTED AREAS SPARINGLY TWICE DAILY * Quantity: 1 Refills: 2 Lady Sterling PEricaAErica* Started 10-Jun-2014 Girulb97 GM Tube Warfarin Sodium 5 MG Oral Tablet TAKE 1 TABLET Daily as directed * Quantity: 90 Refills: 3 Darrius Elkins M.D.* Started 31-Jul-2013 ActiveLisinopril 5 MG Oral Tablet Take 1 tablet daily * Quantity: 90 Refills: 3 Darrius Elkins M.D.* Started 11-Dec-2012 ActiveTerbinafine HCl - 250 MG Oral Tablet TAKE 1 TABLET DAILY. * Quantity: 7 Refills: 0 Lady Sterling P.A.* Started ActiveMetoprolol Tartrate 50 MG Oral Tablet Take 1 tablet twice a day * Quantity: 180 Refills: 1 Darrius Elkins M.D.* Started 13-Jul-2011 ActiveWarfarin Sodium 3 MG Oral Tablet TAKE 1 TABLET Daily as directed * Quantity: 90 Refills: 0 Darrius Elkins M.D.* Started ActiveSulfamethoxazole-TMP DS 800-160 MG TABS Take 1 tablet twice daily * Quantity: 28 Refills: 0 Kylee Waite DPM* Started 04-Aug-2014 ActiveNitrostat 0.4 MG Sublingual Tablet Sublingual DISSOLVE [...] Quadrivalent 0.5 ML Intramuscular Suspension Lot #: [id number] Administered on:17-Dec-2013 Fluzone Quadrivalent 0.5 ML Intramuscular Suspension Lot #: [id number] Administered on:09-Dec-2014 Family History Mother* Name Dates [...]
--- OUTSIDE RECORDS SUMMARY | 2016-07-24 10:32 | XMS REPORT | Summary of Care ---
Author Author Darrius Elkins M.D. Organization Unknown Address [address] [place], [place] [phone] Phone Unavailable Care Team Providers Care Desktop Analyst Name Role Phone Kylee Waite DPM [...] L03.119) Status: Resolved Procedures Procedure Dates Details ECG/ EKG Preop Pendin HEMOGLOBIN A1C 3507 Ordered:29-Jul-2014 CBC w/ Auto Diff 7150 Ordered: Comprehensive Metabolic Panel 1212 Ordered: Urinalysis, Reflex to Microscopic or Culture PRN 8005 Ordered: Immunization Name Dates Details Influenza Administered on:01-Jan-2013 Fluzone Quadrivalent 0.5 ML Intramuscular Suspension Lot #: [id number] Administered on:17-Dec-2013 Family History Mother* Name Dates [...] 09:42 X CHEST PA & LAT (Better) Plan of Care Planned Observations* Name Dates Details Planned Goals not documented Goal Planned Encounters* Appointment; Provider: Kylee Waite On 11:00 * Appointment; Provider: Odin Gautam On 19-Mar-2012 18:45 Instructions * Instructions not documented Encounters Appointment; Darrius Elkins Encounter Diagnosis: Problem not documented On 09:00 Appointment; Kylee Waite Encounter Diagnosis: Problem not documented On 04-Aug-2014 09:15 Appointment; Kylee Waite Encounter Diagnosis: Problem not documented On 07-Jul-2014 13:30 Appointment; Darrius Elkisn Encounter Diagnosis: Problem not documented On 10-Jun-2014 [...]
--- OUTSIDE RECORDS SUMMARY | 2016-07-24 10:32 | XMS REPORT | Summary of Care ---
Author Author León Harris D.O. Organization Unknown Address [address], [place] [id number] Phone Unavailable Care Team Providers Care Accounting Manager Controller Name Role Phone Steven Oquendo, Virgil Unavailable Unavailable Mauro Altamirano M.D. Unavailable Unavailable [...] Tobacco use disorder (305.1, F17.200) Status: Active Pleural effusion (511.9, J90) Status: [...] of tobacco use (V15.82, Z87.891) Status: Active COPD exacerbation (491.21, J44.1) Status: [...] Active D-dimer, elevated (790.92, R79.89) Status: Active Medications Name Dates Details Aspirin [...] Quantity: 1 Refills: 3 Billy Altamirano M.D. * Start 06-Dec-2015 Active 100 ML Bottle Xarelto [...] Quadrivalent 0.5 ML Intramuscular Suspension Lot #: [id number] on: 17-Dec-2013 Fluzone Quadrivalent 0.5 ML Intramuscular Suspension Lot #: [id number] on: 09-Dec-2014 Influenza Lot #: [id number] on: 13-Dec-2015 Family History Name Dates Details [...] smoker Vital Signs Date Test Result Details 04-Jul-2016 13:54 BP Systolic 130 mm[Hg] Status: Comments: Location: ; Position: BP Diastolic 74 mm[Hg] Status: Comments: Location: ; Position: Temperature 97.2 f Status: Comments: Method: Heart Rate 78 /min Status: Comments: Location: [...] >60 ml/min Range: >60 EST GFR, NON-AFR [place] >60 ml/min Range: >60 Comments: EST GFR [...] Goals not documented Planned Encounters Appointment; Provider: Schedule Radiology On 04-Jul-2016 16:30 Interventions Provided Labs/Procedures/Imaging* CBC w/ Auto Diff 7150; Done: Jul 04 2016 2:39PM * Comprehensive Metabolic Panel 1212; Done: Jul 04 2016 2:39PM * CT CTA CHEST; Done: Jul 04 2016 4:23PM * D - dimer 7511; Done: Jul 04 2016 2:39PM * Troponin I 3020; Done: Jul 04 2016 2:39PM * Urinalysis, Reflex to Microscopic or Culture PRN 8005; Done: Jul 04 2016 2: 39PM Instructions Name Dates Details Instructions not documented [...]
--- OUTSIDE RECORDS SUMMARY | 2016-07-24 10:32 | XMS REPORT | Summary of Care ---
Author Author Peyman Morales M.D. Organization Unknown Address [address] [place] [address] [place] [address] Phone Unavailable Care Team Providers Care Sole Painter Name Role Phone Peyman Morales M.D. Unavailable [...] Active Rectal pain (569.42, K62.89) Status: Active Medications Name Dates Details Aspirin [...] po qd * Quantity: 5 Refills: 0 Vinny Elkins M.D.othy R * Start 12-Dec-2015 Active Montelukast Sodium 10 MG Oral Tablet Take 1 tablet daily * Quantity: 10 Refills: 0 Vinyn Elkins M.D.othy R * Start 16-Dec-2015 Active Hydrocodone-Acetaminophen 7.5-325 [...] Quadrivalent 0.5 ML Intramuscular Suspension Lot #: [id number] on: 17-Dec-2013 Fluzone Quadrivalent 0.5 ML Intramuscular Suspension Lot #: [id number] on: 09-Dec-2014 Influenza Lot #: [id number] on: 13-Dec-2015 Family History Name Dates Details [...] smoker Vital Signs Date Test Result Details 06-Feb-2016 11:56 BP Systolic 117 mm[Hg] Status: [...] f Status: Heart Rate 89 /min Status: Comments: Location: [...]
--- OUTSIDE RECORDS SUMMARY | 2016-07-24 10:32 | XMS REPORT | Summary of Care ---
Author Author Ravindra AMAYA, [employer] Organization Unknown Address [address] [place], [place] [phone] Phone Unavailable Care Team Providers Care Tool Repairer Bench Name Role Phone Kirsty Elkins M.D. Unavailable [...] L03.119) Status: Resolved Procedures Procedure Dates Details C REACTIVE PROTEIN, CRP 2030 Ordered:07-Jul-2014 CBC w/ Auto Diff 7150 Ordered:07-Jul-2014 ERYTHROCYTE SED RATE 7800 Ordered:07-Jul-2014 PROTIME PANEL 7000 Ordered:22-Jun-2014 XRay TOES-Right Ordered:10-Jun-2014 ULTRASOUND LEG ARTERIES-BILATERAL Ordered:07-Jul-2014 MRI FOOT RIGHT Ordered:07-Jul-2014 Immunization Name Dates Details Influenza Administered on:01-Jan-2013 Fluzone Quadrivalent 0.5 ML Intramuscular Suspension Lot #: [id number] Administered on:17-Dec-2013 Family History Mother* Name Dates [...] X FOOT COMP (MIN 3V) RT [facility] Radiologic ReportHAHOLLIE MELÉNDEZ [id number] (X-RAY)PATIENT OF DR. ELKINS BD: 1955 SECONDARY 06/10/14 X FOOT COMP (MIN 3V) RT INDICATION : 682.7: CELLULITIS AND ABSCES (Better) 22-Jun-2014 10:34 PROTIME PANEL 7000 PROTIME 25.0 secs (Above high threshold) Range: 12.0-14.9 INR 2.32 (Better) Plan of Care Planned Observations* Name [...] Diagnosis: Problem not documented On 11:00 Appointment; Ppio Aponte Encounter Diagnosis: Problem not documented On [...]
--- OUTSIDE RECORDS SUMMARY | 2016-07-24 10:32 | XMS REPORT | Summary of Care ---
Author Author Kylee Waite DPM Organization Unknown Address [address] [place], [place] [phone] Phone Unavailable Care Team Providers Care Machine Stuffer Automatic Name Role Phone Kylee Waite DPM Unavailable [...] 90 Refills: 3 Darrius Elkins M.D.* Started ActiveWarfarin Sodium 5 [...] Refills: 1 Darrius Elkins M.D.* Started 11-Dec-2012 ActiveHalobetasol Propionate [...] Procedure Dates Details HEMOGLOBIN A1C 3507 Ordered:29-Jul-2014 PROTIME PANEL 7000 Ordered:29-Jul-2014 XRay TOES-Right Ordered:10-Jun-2014 Immunization Name Dates Details Influenza Administered on:01-Jan-2013 Fluzone Quadrivalent 0.5 ML Intramuscular Suspension Lot #: [id number] Administered on:17-Dec-2013 Family History Mother* Name Dates [...] to report Results Date Description Value Details 07-Jul-2014 14:49 CBC w/ Auto Diff 7150 [...] 0.0-0.7 BASO 0.1 K/uL (Better) Range: 0.0-0.2 15:03 C REACTIVE PROTEIN, CRP 2030 C REACTIVE PROTEIN 0.3 mg/dL (Better) Range: 0.0-0.9 15:19 ERYTHROCYTE SED RATE 7800 ERYTHROCYTE SED RATE 14 mm/60 min. (Better) Range: 0-15 09-Jul-2014 10:06 WOUND CULTURE [facility] Microbiology results (Better) Comments: SOURCE:R foot uklcerGRAM STAIN DIRECTNo WBC's Observed, Few (2+) Epithelial Cells, No Organisms Observed.CULTURE RESULT:Rare (1+) growth, Staphylococcus sp.RESULT: Staphylococcus aureus (Isolate 1)Antibiotic Sensitivity Isolate 1 ---------Augmentin <=4/2 SCiprofloxacin >2 RClindamycin <=0.5 SDaptomycin <=0.5 SErythromycin >4 RLevofloxacin 2 SOxacillin <=0.25 SPenicillin 8 BLACRifampin <=1 STetracycline <=4 STrimeth/Sulfa <=0.5/9.5 SVancomycin 1 SS=Sensitive, I=Intermediate, R=Resistant, ESBL =Extended spectrum beta-lactamase enzymes produced, Saúl=Beta-lactamase positive , IB=Inducible Beta-lactamase enzymes known to be present.----- 14-Jul-2014 16:04 ULTRASOUND LEG ARTERIES-BILATERAL Comments: Exam Date: 07/14/2014 14:48Dictation Date: 07/14/2014 16:04 XS LEG ARTERIES (Better) 15-Jul-2014 10:46 MRI FOOT RIGHT Comments: Exam Date: 07/14/2014 15: 48Dictation Date: 07/15/2014 10:46 XMR EXT FOOT RIGHT (Better) 27-Jul-2014 10:31 PROTIME PANEL 7000 PROTIME 24.5 secs (Above high threshold) Range: 12.0-14.9 INR 2.26 (Better) 10:51 HEMOGLOBIN A1C 3507 Comments: Fastin hours Hemoglobin A1C 6.2 % (Better) ESTIMATED AVG. GLUCOSE 131 (Better) 12:16 Comprehensive Metabolic Panel 1212 SODIUM 136 mmol/L (Better) Range: 133-144 POTASSIUM 4.3 mmol/L (Better) Range: 3.5-5.1 CHLORIDE 101 mmol/L (Better) Range: 98-110 CARBON DIOXIDE 28.8 mmol/L (Better) Range: 23.0-33.0 ANION GAP 6 mmol/L (Better) Range: 6-16 BUN 17 mg/dL (Better) Range: 7-18 CREATININE, SERUM 1.02 mg/dL (Better) Range: 0.43-1.13 BUN:CREATININE RATIO 17 (Better) EST GFR, >60 ml/min (Better) Range: >60 EST GFR, NON-AFR [place] >60 ml/min (Better) Range: >60 Comments: EST GFR is reported in ml/min per 1.73 m2 of body surface area. For -Croatian, please multiple result by 1.2.----- GLUCOSE 112 mg/dL (Above high threshold) Range: 70-100 ALK PHOSPHATASE 83 U/L (Better) Range: 46-116 TOTAL BILIRUBIN 0.40 mg/dL (Better) Range: 0.20-1.00 AST 30 U/L (Better) Range: 8-35 ALT 45 U/L (Better) Range: 16-63 Comments: Please note new reference ranges. Effective 05/20/2014.----- ALBUMIN 3.7 g/dL (Better) Range: 3.4-5.0 TOTAL PROTEIN 7.9 g/dL (Better) Range: 6.4-8.2 A/G RATIO 0.9 units (Below low threshold) Range: 1.0-1.8 CALCIUM 8.8 mg/dL (Better) Range: 8.5-10.1 28-Jul-2014 13:49 Hepatitis Panel (4) [id number] Comments: Testing performed at: [DA] [facility] [address], [place], [address], , Wing Coverer: MONO Lance MD Hep A Ab, IgM Negative (Better) Range: Negative HBsAg Screen Negative (Better) Range: Negative Hep B Core Ab, IgM Negative (Better) Range: Negative HEP C VIRUS AB 0.1 s/co ratio (Better) Range: 0.0-0.9 Comments: Negative: < 0.8 Indeterminate: 0.8 - 0.9 Positive: > 0.9 In order to reduce the incidence of a false positive result, the CDC recommends that all s/co ratios between 1.0 and 10.9 be confirmed by a more specific supplemental or PCR testing. [facility] offers [facility] Ab w/Reflex to Verification test #[id number].---- - Plan of Care Planned Observations* Name Dates Details Planned Goals not documented Goal Planned Encounters* Appointment; Provider: Darrius Elkins On 09:00 * Appointment; Provider: Odin Florez On 19-Mar-2012 [...] not documented On 05-May-2013 12:15 Appointment; Darrius Elkisn Encounter Diagnosis: Problem not documented On 28-Apr-2013 13:00 Appointment; Darrius Elkins Encounter Diagnosis: Problem not documented On 10-Apr-2013 10:30 Appointment; Darrius Elkins Encounter Diagnosis: Problem not documented On 11-Dec-2012 10:45
--- OUTSIDE RECORDS SUMMARY | 2016-07-24 10:33 | XMS REPORT | Summary of Care ---
Author Author Darrius Elkins M.D. Organization Unknown Address [address] [place], [place] [phone] Phone Unavailable Care Team Providers Care Breaker Table Worker Name Role Phone Kylee Waite DPM Unavailable [...] Bacterial skin infection (686.9, L08.9) Status: Active Medications Name Dates Details Aspirin [...] Refills: 1 Darrius Elkins M.D.* Started 11-Dec-2012 ActiveCefadroxil 500 MG Oral Capsule TAKE 1 CAPSULE TWICE DAILY. * Quantity: 28 Refills: 0 Kylee Waite DPLane* Started 12-Jul-2014 ActiveHalobetasol Propionate 0.05 % External Cream APPLY TO AFFECTED AREAS SPARINGLY TWICE DAILY * Quantity: 30 Refills: 0 Darrius Elkins M.D.* Started 10-Jun-2014 ActiveWarfarin Sodium 5 MG Oral Tablet TAKE 1 TABLET DAILY DIRECTED. * Quantity: 90 Refills: 3 Darrius Elkins M.D.* Started 31-Jul-2013 Active Allergies and Adverse Reactions Name Dates Details No Known Drug Allergies Status: Active Past Medical History Name Dates Details History of acute bronchitis (V12.69, Z87.09) Status: Resolved History of Cellulitis of foot (682.7, L03.119) Status: Resolved Procedures Procedure Dates Details PROTIME PANEL 7000 Ordered:22-Jun-2014 XRay TOES-Right Ordered:10-Jun-2014 Immunization Name Dates Details Influenza Administered on:01-Jan-2013 Fluzone Quadrivalent 0.5 ML Intramuscular Suspension Lot #: [id number] Administered on:17-Dec-2013 Family History Mother* Name Dates [...] Range: 0-15 09-Jul-2014 10:06 WOUND CULTURE [facility] Microbiology results (Better) Comments: SOURCE:R foot [...] 07/15/2014 10:46 XMR EXT FOOT RIGHT (Better) Plan of Care Planned Observations* Name Dates Details Planned Goals not documented Goal Planned Encounters* Appointment; Provider: Kylee Waite On 04-Aug-2014 09:15 * Appointment; Provider: Odin Gautam On 19-Mar-2012 [...]
--- OUTSIDE RECORDS SUMMARY | 2016-07-24 10:33 | XMS REPORT | Summary of Care ---
Author Author Darrius Elkins M.D. Organization Unknown Address [address] [place], [place] [id number] Phone Unavailable Care Team Providers Care Head Sawyer Automatic Name Role Phone Kylee Waite DPM [...] 28 Refills: 0 Kylee Waite DPLane* Started 04-Aug-2014 ActiveHalobetasol Propionate 0.05 % External Cream APPLY [...] Darrius Elkins M.D.* Started 14-Jul-2012 ActiveWarfarin Sodium 5 MG Oral Tablet TAKE [...] Quadrivalent 0.5 ML Intramuscular Suspension Lot #: [id number] Administered on:17-Dec-2013 Fluzone Quadrivalent 0.5 ML Intramuscular Suspension Lot #: [id number] Administered on:09-Dec-2014 Family History Mother* Name Dates [...]
--- OUTSIDE RECORDS SUMMARY | 2016-07-24 10:33 | XMS REPORT | Summary of Care ---
Author Author Darrius Elkins M.D. Organization Unknown Address [address] [place], [place] [phone] Phone Unavailable Care Team Providers Care Software Project Manager Name Role Phone Kirsty Elkins M.D. Unavailable [...] Refills: 2 Darrius Elkins M.D.* Started 14-Jul-2012 ActivePredniSONE 10 MG Oral Tablet 30mg qd x 3 days. 20mg qd x 3 days. 10mg qd x 3 days * Quantity: 18 Refills: 0 Darrius Elkins M.D.* Started 10-Apr-2013 ActiveLinzess 145 MCG Oral Capsule TAKE 1 CAPSULE Every morning * Refills: 0 Darrius Elkins M.D.* Started 24-Dec-2013 ActiveMeloxicam 7.5 MG Oral Tablet 1QD - TAKE ONE TABLET BY MOUTH EVERY DAY * Quantity: 20 Refills: 0 Darrius Elkins M.D.* Started 12-Oct-2013 ActiveWarfarin Sodium 5 MG Oral Tablet TAKE 1 TABLET DAILY DIRECTED. * Quantity: 90 Refills: 3 Darrius Elkins M.D.* Started 31-Jul-2013 ActiveLisinopril 5 MG Oral Tablet I po qd * Quantity: 90 Refills: 1 Darrius Elkins M.D.* Started 11-Dec-2012 ActiveDocQLace 100 MG Oral Capsule ONE CAPSULE BY MOUTH TWO TIMES DAILY * Quantity: 60 Refills: 11 Darrius Elkins M.D.* Started 28-Jul-2012 ActiveMetoprolol Tartrate 50 MG Oral Tablet TAKE ONE TABLET BY MOUTH TWO TIMES A DAY. * Quantity: 180 Refills: 1 Darrius Elkins M.D.* Started 13-Jul-2011 ActiveNitrostat 0.4 [...] Quadrivalent 0.5 ML Intramuscular Suspension Lot #: [id number] Administered on:17-Dec-2013 Family History Mother* Name Dates [...] ml/min (Better) Range: >60 EST GFR, NON-AFR [place] >60 ml/min (Better) Range: >60 Comments: EST GFR is reported in ml/min per 1.73 m2 of body surface area. For -[place], please multiple result by 1.2.----- GLUCOSE 102 [...] ml/min (Better) Range: >60 EST GFR, NON-AFR [place] >60 ml/min (Better) Range: >60 Comments: EST GFR is reported in ml/min per 1.73 m2 of body surface area. For -[place], please multiple result by 1.2.----- GLUCOSE 131 [...]
--- OUTSIDE RECORDS SUMMARY | 2016-07-24 10:33 | XMS REPORT | Summary of Care ---
Author Author Darrius Elkins M.D. Organization Unknown Address [address] [place], [place] [id number] Phone Unavailable Care Team Providers Care Field Operations Coordinator Name Role Phone Kirsty Elkins M.D. Unavailable [...] Past myocardial infarction (412, I25.2) Status: Active Hypertension (401.9, I10) Status: Active [...] Refills: 2 Darrius Elkins M.D.* Started 13-Jul-2011 ActiveWarfarin Sodium [...] Refills: 0 Darrius Elkins M.D.* Started 24-Dec-2013 ActiveHalobetasol Propionate 0.05 % External Cream APPLY TO AFFECTED AREAS SPARINGLY TWICE DAILY * Quantity: 30 Refills: 0 Darrius Elkins M.D.* Started 10-Jun-2014 ActiveFexofenadine HCl - 180 MG Oral Tablet 1 tablet qd * Quantity: 30 Refills: 0 Darrius Elkins M.D.* Started 10-Jun-2014 ActiveNitrostat 0.4 MG Sublingual Tablet Sublingual DISSOLVE 1 TAB UNDER TONGUE NEEDED FOR CHEST PAIN EVERY 5 MINUTES F OR UP TO 3 DOSES. IF NO RELIEF CALL * Quantity: 30 Refills: 1 Darrius Elkins M.D.* Started 13-Jul-2011 ActiveWarfarin Sodium 5 MG Oral Tablet TAKE 1 TABLET DAILY DIRECTED. * Quantity: 90 Refills: 3 Darrius Elkins M.D.* Started 31-Jul-2013 ActiveMiraLax Oral Powder MIX 17 GM IN 8 OUNCES OF LIQUID AND DRINK 1 TO 2 TIMES DAILY FOR CONSTIPATION. * Quantity: 2 Refills: 6 Darruis Elkins M.D.* Started 13-Jul-2011 ActiveMeloxicam 7.5 MG Oral Tablet 1QD - TAKE ONE TABLET BY MOUTH EVERY DAY * Quantity: 20 Refills: 0 Darrius Elkins M.D.* Started 12-Oct-2013 ActiveDocQLace 100 MG Oral Capsule ONE CAPSULE BY MOUTH TWO TIMES DAILY * Quantity: 60 Refills: 11 Darrius Elkins M.D.* Started 28-Jul-2012 Active Allergies and Adverse Reactions Name Dates Details No Known Drug Allergies Status: Active Past Medical History Name Dates Details History of acute bronchitis (V12.69, Z87.09) Status: Resolved History of Cellulitis of foot (682.7, L03.119) Status: Resolved Procedures Procedure Dates Details PROTIME PANEL 7000 Ordered:07-Jun-2014 HEMOGLOBIN A1C 3507 Ordered:07-May-2014 XRay TOES-Right Ordered:10-Jun-2014 Immunization Name Dates Details Influenza Administered on:01-Jan-2013 Fluzone Quadrivalent 0.5 ML Intramuscular Suspension Lot #: [id number] Administered on:17-Dec-2013 Family History Mother* Name Dates [...] m2 Status: Results Date Description Value Details 05-Jun-2014 10:36 PROTIME PANEL 7000 PROTIME 14.9 secs (Better) Range: 12.0-14.9 INR 1.18 (Better) 10-Jun-2014 10:41 XRay FOOT-Right Comments: Exam Date: 10: 23Dictation Date: 10:41 X FOOT COMP (MIN 3V) [facility] ReportHAHOLLIE MELÉNDEZ [id number] (X-RAY)PATIENT OF DR. ELKINS BD: 1955 SECONDARY 06/10/14 X FOOT COMP (MIN 3V) RT INDICATION : 682.7: CELLULITIS AND ABSCES (Better) Plan of Care Planned Observations* Name Dates Details Planned Goals not documented Goal Planned Encounters* Appointment; Provider: Kylee Waite On 07-Jul-2014 13:30 * Appointment; Provider: Odin Florez On [...]
--- OUTSIDE RECORDS SUMMARY | 2016-07-24 10:33 | XMS REPORT | Summary of Care ---
Author Author Darrius Elkins M.D. Unknown Address Unknown Phone Unavailable Care Team Providers Care Physician Credentialing Specialist Name Role Phone Mauro Altamirano M.D. [...] Active Pre-op examination (V72.84, Z01.818) Status: Active Past myocardial infarction (412, I25.2) [...] Status: Active Tachycardia (785.0, R00.0) Status: Active BPH (benign prostatic hypertrophy) (600.00, N40.0) Status: Active Hypertension (401.9, I10) Status: Active Hyperlipidemia (272.4, E78.5) Status: Active Encounter for annual physical exam (V70.0, Z00.00) Status: Active CAD (coronary artery disease) (414.00, I25.10) Status: Active Diabetic neuropathy (250.60, E11.40) Status: Active Obesity (278.00, E66.9) Status: Active [...] Start 06-Dec-2015 Active 100 ML Bottle Xarelto 20 MG Oral Tablet * Refills: [...] Quadrivalent 0.5 ML Intramuscular Suspension Lot #: [id number] on: 17-Dec-2013 Fluzone Quadrivalent 0.5 ML Intramuscular Suspension Lot #: [id number] on: 09-Dec-2014 Influenza Lot #: [id number] on: 13-Dec-2015 Family History Name Dates Details [...] smoker Vital Signs Date Test Result Details 01-May-2016 11:31 BP Systolic 108 mm[Hg] Status: Comments: Location: ; Position: BP Diastolic 78 mm[Hg] Status: Comments: Location: ; Position: Weight 322 lb Status: Body Mass Index Calculated 41.34 kg/m2 Status: Body Surface Area Calculated 2.66 m2 Status: Results Date Description Value Details 27-Apr-2016 08:48 [...] Negative Range: Negative LEUK Negative Range: Negative 10:43 CBC w/ Auto Diff 7150 Comments: Fastin hours WBC 5.7 K/uL Range: 4.5-11.0 RBC 5.04 mil/uL Range: 4.20-5.40 HGB 15.4 g/dL Range: 14.0-18.0 HCT 45.0 % Range: 42.0-53.0 MCV 89.2 fL Range: 80.0-99.0 MCH 30.5 pg Range: 27.3-32.5 MCHC 34.2 % Range: 32.0-36.0 RDW 15.1 % (Above high threshold) Range: 11.6-14.8 PLATELETS 162 K/uL Range: 150-400 MPV 8.2 fL Range: 6.0-11.0 %NEUTRO 51.2 % Range: 37.0-80.0 %LYMPHS 31.9 % Range: 13.0-50.0 %MONO 7.0 % Range: 0.0-12.0 %EOS 6.2 % Range: 0.0-7.0 %BASO 0.9 % Range: 0.0-2.5 %ALEJANDRA 2.8 % Range: 0.0-5.0 NEUTRO 2.9 K/uL Range: 2.0-6.9 LYMPHS 1.8 K/uL Range: 0.6-3.4 MONOS 0.4 K/uL Range: 0.0-0.9 EOS 0.4 K/uL Range: 0.0-0.7 BASO 0.1 K/uL Range: 0.0-0.2 10:44 Comprehensive Metabolic Panel 1212 Comments: Fastin hours SODIUM 140 mmol/L Range: 133-144 POTASSIUM 4.3 mmol/L Range: 3.5-5.1 CHLORIDE 103 mmol/L Range: 98-110 CARBON DIOXIDE 30.3 mmol/L Range: 23.0-33.0 ANION GAP 7 mmol/L Range: 6-16 BUN 14 mg/dL Range: 7-18 CREATININE, SERUM 0.89 mg/dL Range: 0.70-1.30 BUN:CREATININE RATIO 16 EST GFR, >60 ml/min Range: >60 EST GFR, NON-AFR ZAMBIAN >60 ml/min Range: >60 Comments: EST GFR is reported in ml/min per 1.73 m2 of body surface area. ----- GLUCOSE 104 mg/dL (Above high threshold) Range: 70-100 ALK PHOSPHATASE 81 U/L Range: 46-116 TOTAL BILIRUBIN 0.40 mg/dL Range: 0.20-1.00 AST 21 U/L Range: 8-35 ALT 30 U/L Range: 16-63 ALBUMIN 3.5 g/dL Range: 3.4-5.0 TOTAL PROTEIN 7.9 g/dL Range: 6.4-8.2 A/G RATIO 0.8 units (Below low threshold) Range: 1.0-1.8 CALCIUM 8.9 mg/dL Range: 8.5-10.1 10:44 LIPID PROFILE 1184 Comments: Fastin hours CHOLESTEROL 133 mg/dL Range: <200 TRIGLYCERIDES 198 mg/dL Range: 30-200 HDL Cholesterol 34 mg/dL (Below low threshold) Range: >39 NON HDL CHOLESTEROL 99 CARDIAC RSK FACTOR 3.9 units (Below low threshold) Range: 4.4-5.0 LDL - CALCULATED 59 mg/dL Range: 0-130 10:53 Quant Microalbumin 1106 Comments: Fastin hours MICROALBUMIN, URINE 5.1 mg/L Range: <20.1 10:55 PSA ( PROSTATE SPECIFIC ANTIGEN) 3100 Comments: Fastin hours PROSTATE SPECIFIC ANTIGEN 3.820 ng/mL Range: 0.000-4.000 10:55 THYROID STIM. HORMONE 3602 Comments: Fastin hours THYROID STIM. HORMONE 1.755 uIU/mL Range: 0.550-4.780 Comments: No established reference ranges for infants and children <2 years of age----- 11:34 HEMOGLOBIN A1C 3507 Comments: Fastin hours Hemoglobin A1C 6.1 % ESTIMATED AVG. GLUCOSE 128 Plan of Care Name Dates Details Planned Observations Planned Goals not documented Interventions Provided Labs/Procedures/Imaging* Diabetic Foot - Pulse Exam; Done: * Diabetic Foot - Sensory Exam; Done: * Diabetic Foot - Visual Exam; Done: Instructions* There are many exercise options for seniors.; Done: Instructions Name Dates Details Instructions not documented [...]
--- OUTSIDE RECORDS SUMMARY | 2016-07-24 10:34 | XMS REPORT | Summary of Care ---
Author Author Darrius Elkins M.D. Organization Unknown Address [address] [place], [place] [id number] Phone Unavailable Care Team Providers Care Television Maintenance Man Name Role Phone Kylee Waite DPM Unavailable [...] L03.119) Status: Resolved Procedures Procedure Dates Details CBC w/ Auto Diff 7150 Ordered:14-Mar-2015 Comprehensive Metabolic Panel 1212 Ordered:14-Mar-2015 LIPID PROFILE 1184 Ordered:14-Mar-2015 PSA ( PROSTATE SPECIFIC ANTIGEN) 3100 Ordered:14-Mar-2015 Quant Microalbumin 1106 Ordered:14-Mar-2015 THYROID STIM. HORMONE 3602 Ordered:14-Mar-2015 Urinalysis, Reflex to Microscopic or Culture PRN 8005 Ordered:14-Mar-2015 PROTIME PANEL 7000 Ordered:14-Mar-2015 Immunization Name Dates Details Influenza Administered on:01-Jan-2013 Fluzone Quadrivalent 0.5 ML Intramuscular Suspension Lot #: [id number] Administered on:17-Dec-2013 Fluzone Quadrivalent 0.5 ML Intramuscular Suspension Lot #: [id number] Administered on:09-Dec-2014 Family History Mother* Name Dates [...]
[2016-07-24 10:54] LABS: BASOPHILS # (AUTO) 0.1 T/MM3 (0-0.2); BASOPHILS % (AUTO) 0.8 % (0-2); EOSINOPHILS # (AUTO) 0.5 T/MM3 (0-0.5); EOSINOPHILS % (AUTO) 7.3 % (0-4); HCT - HEMATOCRIT 47.9 % (41-53); HGB - HEMOGLOBIN 16.1 GM/DL (13.5-17.5); IMMATURE GRANULOCYTE # (AUTO) 0.01 T/MM3 (0.00-0.03); IMMATURE GRANULOCYTE % (AUTO) 0.1 % (0.0-0.5); LYMPHOCYTES # (AUTO) 2.6 T/MM3 (1-4.8); LYMPHOCYTES % (AUTO) 36.4 % (23-45); MEAN CORPUSCULAR HGB CONC(MCHC 33.6 GM/DL (31-37); MEAN CORPUSCULAR VOLUME 89.2 UM3 (80-100); MEAN PLATELET VOLUME 11.4 UM3 (9.4-12.4); MONOCYTES # (AUTO) 0.8 T/MM3 (0-0.8); MONOCYTES % (AUTO) 11.3 % (0-9.0); NEUTROPHILS #(AUTO)-ABSOLUTE 3.1 T/MM3 (1.8-7.7); NEUTROPHILS % (AUTO) 44.1 % (33-66); RED BLOOD COUNT 5.37 M/MM3 (4.50-5.90); WBC - WHITE BLOOD COUNT 7.1 T/MM3 (4.5-11.0)
[2016-07-24 11:01] LABS: INR 0.99 (0.76-1.04); PROTHROMBIN TIME 10.8 SEC (9.31-12.49)
[2016-07-24 11:03] LABS: ANION GAP 12 MEQ/L (5-15); BUN/CREATININE RATIO 18 RATIO (6-26); CALCIUM 9.4 MG/DL (8.4-10.2); CHLORIDE 104 MEQ/L (98-107); CO2 - CARBON DIOXIDE 30 MEQ/L (22-30); CREATININE 0.9 MG/DL (0.8-1.5); GLOMERULAR FILTRATION RATE 85; GLUCOSE 117 MG/DL (75-110); POTASSIUM 4.4 MEQ/L (3.6-5); SODIUM 146 MEQ/L (134-144)
[2016-07-24] MEDS ORDERED: MULT-1175 PO (11:03)
[2016-07-24] MEDS ORDERED: POLY17PO6 PO (11:03)
[2016-07-24] MEDS ORDERED: IOHEXOL 300 MG/ML 50ml INJECTION ONE (12:29)
--- NOTE | 2016-07-24 12:37 | ANESPREOP ---
Anesthesia Record Date and Time DATE: 07/24/16 TIME: 12:30 Proposed Surgical Procedure CYSTO/RETROGRADE PYELOGRAM/TURBT/BLADDER NECK Allergies: Coded Allergies: No Known Allergies (Unverified , 07/23/16) Ht/Wt/BMI Height: 6 ' 2.00 " Weight: 145.900 kg BMI: 41.3 kg/m2 Vital Signs Date Time Temp Pulse Resp B/P Pulse Ox O2 Delivery O2 Flow Rate FiO2 07/24/16 10:36 98.6 73 16 135/96 96 Room Air Medications Inpatient Medications Current Medications Medications (Trade) Dose Ordered Sig/Ailyn Start Time Stop Time Status Last Admin Dose Admin Lactated Ringer's (Lactated Ringers) 1,000 ml @ 50 mls/hr Q20H 07/24/16 07:00 07/24/16 11:25 50 MLS/HR Aspirin (Aspir 81) 81 Mg Tablet.dr, 1 TAB PO DAILY, (Reported) Last Taken: on 07/23/16 Clobetasol Propionate (Clobetasol Propionate) 15 Gm Cream..g., 1 APPLIC TOP BID, (Reported) Lisinopril (Lisinopril) 5 Mg Tablet, 1 TAB PO DAILY, (Reported) Last Taken: on 07/23/16 Metoprolol Tartrate (Metoprolol Tartrate) 50 Mg Tablet, 1 TAB PO DAILY, (Reported) Last Taken: on 07/24/16 0600 Multivitamin (Multi-Vitamin Daily) 1 Each Tablet, 1 TAB PO DAILY, (Reported) Nitroglycerin (Nitroglycerin) 0.4 Mg Tab.subl, 0.4 MG SL PRN PRN for CHEST PAIN, (Reported) Polyethylene Glycol 3350 (Miralax) 17 Gm Powd.pack, 1 PACKET PO DAILY, (Reported ) Rivaroxaban (Xarelto) 15 Mg Tablet, 1 TAB PO DAILY, (Reported) Last Taken: on 07/21/16 Sennosides/Docusate Sodium (Stool Softener Tablet) 1 Each Tablet, 2 TAB PO BID, (Reported) Last Taken: on 07/23/16 Simvastatin (Simvastatin) 20 Mg Tablet, 1 TAB PO DAILY, (Reported) Last Taken: on 07/23/16 Currently on Beta Bubba: Yes Beta Bubba Last Taken: 0600 today Medical/Surgical History Anesthesia PMH: Reports: *Angina (2011- asymptomatic since 2011. Recent visit to [facility] June 2011- no concerns), *Hypertension (TAKES ME), *RI (Pt says RI x2 not 4- RI's were in May and July 2011; CABG in May 2011), Arthritis (KNEES-ISABELLA. ), COPD (PER H&P), Clotting Problems (XARELLTO), Renal Disease, Denies: *Diabetes (pt denies diabetes), Anesthesia Reactions (NO AIRWAY ISSUES, N&V), Cancer, Glaucoma, Malignant Hyperthermia, Reflux, Sleep Apnea Smoking Status: Current every day smoker # of Packs per Day: 0.5 Use Chewing Tobacco?: No Substance Use Type: does not use Past Surgical History Orthopedic Surgeries: Yes - Lt knee scope x3; rt knee scope; Isabella shoulder scopes Abdominal Surgeries: Yes - KIT Genitourinary Surgeries: Cardiac Surgeries: Yes - CABG x4 in 2011 Endocrine Surgeries: Reproductive Surgeries: Neurological Surgeries: Ear Surgeries: Nose Surgeries: Throat Surgeries: Other Surgeries: Anesthesia Adverse Reactions: FOUND none Family Hx of Anesthesia Advers: none Hx of Motion Sickness: No Pertinent Findings Laboratory Tests 07/24/16 10:47 Test 07/24/16 10:47 Activated Partial Thromboplast Time 34.0SEC (24-36) Prothromb Time International Ratio 0.99 (0.76-1.04) Physical Exam Respiratory: Lungs clear Cardiovascular: FOUND Regular rate, rhythm Airway Assessment Mallampati Score: II TMD: 3 Fingerbreadths Neck Extension: Good Overall Assessment: May Be Diff Mask Vent., May Be Diff Intubation ASA: 3 Plan Anesthesia Plan: GETA Discussion Discussed risks/options/alternatives of anesthesia and questions answered. Patient consents. Nursing pain assessment noted. Present: Spouse Attestation Statement Prior to the delivery of any anesthetic medication, I examined the patient, developed the plan, obtained the patient's consent and discussed the risk and benefits of the procedure with the patient/guardian. JOHANNA ESTEVEZ CRNA July 24, 2016 12:37
[2016-07-24] MEDS ORDERED: PROPOFOL 500mg 50 ML IV ONE (12:41)
[2016-07-24] MEDS ORDERED: MIDAZOLAM 2mg/2ml INJECTION ONE (12:45)
[2016-07-24] MEDS ORDERED: FENTANYL 100mcg/2ml INJECTION ONE ×2 (13:00→13:20)
[2016-07-24] MEDS ORDERED: ONDANSETRON 4mg/2ml INJECTION ONE (13:12)
[2016-07-24] MEDS ORDERED: DEXAMETHASONE 4mg/ml - 1ml INJECTION ONE (13:12)
[2016-07-24] MEDS ORDERED: LR 1,000 ML IV SCH (13:50)
[2016-07-24] MEDS ORDERED: ONDANSETRON 4mg/2ml INJECTION IV PRN (14:00)
[2016-07-24] MEDS ORDERED: HYDROCODONE/APAP 5 mg/325 mg TABLET PO PRN (14:00)
[2016-07-24] MEDS ORDERED: BELLADONNA-OPIUM 16.2-60mg SUPP RECTALLY PRN (14:00)
[2016-07-24] MEDS ORDERED: TRAMADOL 50 MG TABLET PO PRN (14:00)
[2016-07-24] MEDS ORDERED: MORPHINE SULFATE 4 MG SYRINGE IV PRN (14:00)
[2016-07-24] MEDS ORDERED: SULF1TAB3 PO (14:14)
[2016-07-24] MEDS ORDERED: TRAM50TA53 PO (14:14)
[2016-07-24] MEDS ORDERED: PHEN95TA44 PO (14:14)
--- NOTE | 2016-07-24 14:15 | ANESPO ---
Post-Op Note Date 07/24/16 Time: 14:15 Status Pt Participated in Evaluation: Pt participated in person Vital Signs Date Time Temp Pulse Resp B/P Pulse Ox O2 Delivery O2 Flow Rate FiO2 07/24/16 14:11 77 12 126/63 94 Room Air 07/24/16 13:46 96.8 6.00 Respiratory Function: Airway patent Cardiovascular Function: Regular pulse Mental Status: Alert/oriented Pain Level Intensity: 0 Hydration: IV infusing Complications during Recovery None apparent Follow-Up Instructions Instructions Per Surgeon NAYA ISABEL July 24, 2016 14:15
--- NOTE | 2016-07-24 14:24 | DI ---
Indication: ITS.REASON: BLADDER TUMOR PROCEDURE: RF RETROGRADE PYELOGRAM BILAT.: Encounter: Initial Comparison: None Findings: 10 fluoroscopic spot images are submitted for interpretation. Images show retrograde injection of contrast into the left ureter and renal collecting system followed by injection of contrast into the right ureter and renal collecting system. The calyces appear grossly normal without obvious hydronephrosis. The bladder is not opacified on these images. Impression: Fluoroscopy as above. Fluoroscopy time is 53.7 seconds. Fluoroscopy dose is 3790 mRad. .
[2016-07-24] MEDS ORDERED: PHENAZOPYRIDINE 95 MG TABLET PO ONE (14:30)
[2016-07-24] MEDS ORDERED: SULFAMETHOXAZOLE/TMP 800mg/160mg TABLET PO SCH (21:00)
--- NOTE | 2016-07-25 08:59 | OPNOTEF ---
DATE OF OPERATION 07/24/2016 PREOPERATIVE DIAGNOSIS Bladder tumor and obstructive BPH and gross hematuria. 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 OPERATION PERFORMED Cystoscopy, bilateral retrograde pyelogram and transurethral resection of the bladder tumor 4.0 cm size and TUR of bladder neck. SURGEON Peyman Morales MD ANESTHESIA General. INDICATION Mr. Amin is a 61-year-old man with intermittent gross hematuria. Evaluation showed very inflamed bladder mucosa at the anterior bladder wall near the bladder neck that extends onto the bladder neck and onto the proximal prostate fossa. He has varicosity of the vessels. It is suspicious for malignancy and therefore patient was brought in to have bilateral retrograde pyelogram to work up the hematuria and then resect and/or biopsy the area. Because of the location making it difficult to access, the bladder neck will most likely have to be resected with the accompanying possible risk of retrograde ejaculation. The patient has accepted the risks and agreed to the surgery. DESCRIPTION OF PROCEDURE The patient was taken to the cystoscopy suite and, under general anesthesia, he was placed in dorsal lithotomy position and prepped and draped in the usual fashion for a cystoscopic procedure. A 21 Vincentian rigid cystocope was inserted into the bladder. Bladder shows heavy trabeculation with, again, very inflamed bladder mucosa in the anterior bladder wall near the bladder neck and extending onto the bladder into the proximal prostate fossa. It is very congested with the varicosity of vessels. No papillary feature is found. This was observed with the 30-degree and 70-degree angle lens , but it was very hard to see the anterior bladder wall lesion due to the anterior prostate lobe extending slightly into the bladder. Prostate itself is very large with obstruction and small median lobe, but it is primarily obstructed by lateral lobes. Bilateral retrograde pyelograms were taken with the 5 Vincentian open-ended ureteral catheter under fluoroscopy and found normal upper tract without hydronephrosis or filling defect. The urethra was then calibrated with 30 Vincentian Dylan sound. The Gyrus resectoscope was inserted into the bladder with the aid of obturator. We then resected the bladder neck anteriorly as we could not visualize the anterior bladder wall with 30-degree angle lens. This allowed a peek onto the anterior bladder wall near the bladder neck and reddish mucosa involving approximately 4.0 cm of the bladder mucosa just inside of the bladder neck was resected. This varicosity of vessels and inflammatory mucosa extended onto the proximal prostate anteriorly and this was extensively resected from approximately 1 o'clock to 9 o'clock. Bleeding vessels were cauterized. A specimen was obtained with the Ellik. After assuring complete evacuation of the resected specimen and adequate hemostasis, the resectoscope was removed. A 15 Vincentian flexible cystocope was then inserted and by retroflexing the scope the bladder neck was visualized. There was no evidence of remaining suspicious mucosa. The flexible cystoscope was then removed and a 20 Vincentian Alegre catheter was inserted. 10 cc balloon was inflated and bladder was irrigated to clear. Drainage bag was attached and the patient was taken to the recovery room in stable condition. JADE
== END 2016-07-24 15:20 | disposition home or self-care (01) ==
LOC: SCU 10:19
PROVIDERS: ATTEND Specialist
DX: D49.4 Neoplasm of unspecified behavior of bladder (principal); N30.21 Other chronic cystitis with hematuria; I78.8 Other diseases of capillaries; N40.1 Benign prostatic hyperplasia with lower urinary tract symptoms; N13.8 Other obstructive and reflux uropathy; N32.89 Other specified disorders of bladder; I86.2 Pelvic varices; Z79.01 Long term (current) use of anticoagulants; I25.10 Atherosclerotic heart disease of native coronary artery without angina pectoris; E11.40 Type 2 diabetes mellitus with diabetic neuropathy, unspecified; E78.5 Hyperlipidemia, unspecified; I10 Essential (primary) hypertension; E66.9 Obesity, unspecified; Z68.41 Body mass index [BMI] 40.0-44.9, adult; F17.200 Nicotine dependence, unspecified, uncomplicated; Z79.899 Other long term (current) drug therapy
CPT/HCPCS: 36415; 52235; 74420; 80048; 85025; 85610; 85730; A9270; J0330; J1100; J1956; J2250; J2405; J3010; J7060; J7120; Q9967